=== PATIENT | female | born 1955 | race Caucasian/White ===

== ENCOUNTER 2020-03-15 09:48 | Emergency (ER) | payer MEDICARE, OTHER ==
[~2020-03-15] VITALS: Ht 157.5 cm; Wt 90.7 kg
--- OUTSIDE RECORDS SUMMARY | ~2020-03-15 | XMS | Encounter Summary ---
Demographics + + + | Address | [address] | | | [place] [address] | + + + | Home Phone | | + + + | Preferred Language | Unknown | + + + | Marital Status | | + + + | Evangelical Affiliation | Unknown | + + + | Race | Unknown | + + + | Ethnic Group | Unknown | + + + Author + + + | Author | [facility] | | | and Scout | + + + | Organization | [facility] | | | and [place] | + + + | Address | Unknown | + + + | Phone | Unavailable | + + + Support + + + + + | Name | Relationship | Address | Phone | + + + + + | Kendall MUNSON | [address] | | | | | [place] [address] | | + + + + + Care Team Providers + +------+ + | Care Community Service Specialist Name | Role | Phone | + +------+ + | Don Morin MD | PCP | | + +------+ + Reason for Visit + + + | Reason | Comments | + + + | Numbness | incontinent of bowel | + + + | Incontinence | | + + + Encounter Details +--------+ + + + + | Date | Type | Department | Care Team | Description | +--------+ + + + + | 10/15/ | Emergency | [facility] | [facility] | Incontinence of | | 2016 | | [facility] | Sherwin Schaeffer MD | bowel (Primary Dx); | | | | CENTER [address] | [address] | Numbness and | | | | [place], [place] | [place], [place] | tingling in left | | | | [address] | [address] | upper extremity; | | | | [phone] | | Numbness and | | | | | | tingling of right | | | | | | upper extremity | +--------+ + + + + Social History + +-------+ +--------+------+ | Tobacco Use | Types | Packs/Day | Years | Date | | | | | Used | | + +-------+ +--------+------+ | Former Smoker | | | | | + +-------+ +--------+------+ + +---+---+---+ | Smokeless Tobacco: | | | | | Never Used | | | | + +---+---+---+ + + +---------+ + | Alcohol Use | Drinks/Week | oz/Week | Comments | + + +---------+ + | Yes | | | occasional | + + +---------+ + + + + | Sex Assigned at | Date Recorded | | | | + + + | Not on file | | + + + documented as of this encounter Last Filed Vital Signs + +---------+ + + | Vital Sign | Reading | Time Taken | Comments | + +---------+ + + | Blood Pressure | 132/83 | 10/16/2015 7:39 PM | | | | | PST | | + +---------+ + + | Pulse | 72 | 10/16/2015 7:38 PM | | | | | PST | | + +---------+ + + | Temperature | - | - | | + +---------+ + + | Respiratory Rate | 16 | 10/16/2015 4:52 PM | | | | | PST | | + +---------+ + + | Oxygen Saturation | 97% | 10/16/2015 7:38 PM | | | | | PST | | + +---------+ + + | Inhaled Oxygen | - | - | | | Concentration | | | | + +---------+ + + | Weight | - | - | | + +---------+ + + | Height | - | - | | + +---------+ + + | Body Mass Index | - | - | | + +---------+ + + documented in this encounter Discharge Instructions Shaniqua Rose RN - 10/16/2015Please follow-up with Dr. Mendes's office tomorrow. Return for severe worsening symptoms. documented in this encounter Medications at Time of Discharge + + + +---------+ + + | Medication | Sig | Dispensed | Refills | Start | End Date | | | | | | Date | | + + + +---------+ + + | cyanocobalamin | Take 500 mcg by | | 0 | | | | (VITAMIN B-12) 500 | mouth Daily. | | | | 6 | | mcg tablet | | | | | | + + + +---------+ + + | escitalopram | Take 10 mg by mouth | | 0 | | | | (LEXAPRO) 10 mg | Daily. | | | | 7 | | tablet | | | | | | + + + +---------+ + + | gabapentin | Take 600 mg by mouth | | 0 | | | | (NEURONTIN) 300 mg | 3 times daily. | | | | 6 | | capsule | | | | | | + + + +---------+ + + | losartan (COZAAR) | Take 25 mg by mouth | | 0 | | | | 25 mg tablet | Daily. | | | | 7 | + + + +---------+ + + | methylprednisoLONE | Follow package | 21 | 0 | 10/16/19 | | | (MEDROL DOSEPAK) 4 | directions. | tablet | | 16 | 6 | | mg tablet | | | | | | + + + +---------+ + + | Multiple | Take 1 tablet by | | 0 | | | | Vitamins-Minerals | mouth Daily. | | | | 9 | | (WOMENS MULTIVITAMIN | | | | | | | PLUS PO) | | | | | | + + + +---------+ + + | simvastatin | Take 20 mg by mouth | | 0 | | | | (ZOCOR) 40 mg tablet | nightly. | | | | 9 | + + + +---------+ + + | varenicline | Take 1 mg by mouth 2 | | 0 | | | | (CHANTIX) 1 MG | times daily. | | | | 7 | | tablet | | | | | | + + + +---------+ + + documented as of this encounter ED Notes Dave Bradshaw MD - 10/16/2015 5:10 PM PSTFormatting of this note might be d ifferent from the original. [facility] [place] Wells Emergency Department Encounter Note [address] [place] [id number] PCP:Don Morin MD [phone] eMERGENCY dEPARTMENT eNCOUnter CHIEF COMPLAINT Chief Complaint Patient presents with Numbness incontinent of bowel Incontinence TRIAGE ED Triage Notes Gino Aviles RN 10/16/2015 16:52 Hx of back issues she is seeing Dr Benoit for neck issues and has had numbness in hands and 3 days ago started having loss of bowel and was told to come to the ED today for eval. HPI Ana Wells is a 60 y.o. female who presents with significant lower back pain that's be en intermittent for several days. She also has some issues in her neck and is waiting to se e the neurosurgeon. Currently patient over the last 2-3 days has had multiple episodes of loss of bowel contine nce. She called the neurosurgery office and they directed her to the emergency room for fur ther workup. Patient states that she has a very unsteady gait as it is due to lower back pain. Patient was having some numbness in all of her extremities and was found to have what appea red to be cervical impingement syndrome causing some of these symptoms. Patient recently had an MRI of the cervical spine there is a significant lesion at C4-C5. Patient state did state that she had been constipated for several days she took some stool softeners and then when they started to work that's when she developed the incontinence. Sh mayr states that normally she should be able to control the symptoms. She does have some ongoi ng intermittent numbness to her legs. Due to patient's incontinence issues I feel we need to rule out cauda equina syndrome. She states she has some difficulty starting a stream of urine. She feels like she has to go al l the time but sometimes cannot initiate a stream. She denies anesthesia to the genitals at this time. PAST MEDICAL HISTORY Past Medical History Diagnosis Date High cholesterol Hypertension Neuropathy SURGICAL HISTORY Past Surgical History Procedure Laterality Date Hysterectomy Tonsillectomy Cholecystectomy Carpal tunnel release Bilateral CURRENT MEDICATIONS Previous Medications CYANOCOBALAMIN (VITAMIN B-12) 500 MCG TABLET Take 500 mcg by mouth Daily. ESCITALOPRAM (LEXAPRO) 10 MG TABLET Take 10 mg by mouth Daily. GABAPENTIN (NEURONTIN) 300 MG CAPSULE Take 600 mg by mouth 3 times daily. LOSARTAN (COZAAR) 25 MG TABLET Take 25 mg by mouth Daily. MULTIPLE VITAMINS-MINERALS (WOMENS MULTIVITAMIN PLUS PO) Take 1 tablet by mouth Daily. SIMVASTATIN (ZOCOR) 40 MG TABLET Take 20 mg by mouth nightly. VARENICLINE (CHANTIX) 1 MG TABLET Take 1 mg by mouth 2 times daily. ALLERGIES No Known Allergies FAMILY HISTORY No family history on file. SOCIAL HISTORY History Social History Marital Status: Spouse Name: N/A Number of Children: N/A Years of Education: N/A Social History Main Topics Smoking status: Former Smoker Smokeless tobacco: Never Used Alcohol Use: Yes Comment: occasional Drug Use: No Sexual Activity: None Other Topics Concern None Social History Narrative None REVIEW OF SYSTEMS Please see HPI, All systems negative except as marked. Twelve point review of system comp leted my me. PHYSICAL EXAM VITAL SIGNS: Pulse: 99 Resp: 16 SpO2: 98 % BP: 154/88 mmHg Constitutional: Well developed, Well nourished, Non-toxic appearance. HENT: Normocephalic, Atraumatic, Bilateral external ears normal, Oropharynx moist, No oral exudates, Nose normal. Neck- Normal range of motion, No tenderness, Supple, No stridor. Eyes: PERRL, EOMI, Conjunctiva normal, No discharge. Respiratory: Normal breath sounds, No respiratory distress, No wheezing, No chest tenderne ss. Cardiovascular: Normal heart rate, Normal rhythm, No murmurs, No rubs, No gallops. GI: Bowel sounds normal, Soft, No tenderness, No masses, No pulsatile masses. Musculoskeletal: Intact distal pulses, No edema, No tenderness, No cyanosis, No clubbing. Good range of motion in all major joints. No tenderness to palpation or major deformities no oliver. Subjective numbness to the forearms as well as lateral. Back:- Reproducible lower back pain. Decreased range of motion. Neurologic: Alert & oriented x 3, Normal motor function, Normal sensory function, No focal deficits noted, no facial assymetry noted. 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 A final report is available at [facility]. MRI LUMBAR SPINE WITHOUT CONTRAST CLINICAL INFORMATION: Low back pain, numbness, and loss of bowel co ntinence. COMPARISON: None available PROCEDURE: Sagittal T2, axial T2, sagittal T1, axia l T1, sagittal STIR sequences. FINDINGS: Alignment: Normal. Vertebrae and vertebral joesph ow signal: No fractures or vertebral marrow edema. Conus and imaged portions of the caudal cord: Normal. Lumbar disc levels: T12-L1 and L1-L2 disc levels are normal. At L2-3 ther e is a small annular disc bulge and facet hypertrophy with mild central canal and moderate n eural foraminal stenosis. No evidence of nerve root compression. At L3-4 there is a small annular disc bulge and ligamentum flavum hypertrophy with mild central canal and moderate n eural foraminal stenosis. No evidence of nerve root compression. Mild facet arthropathy is present bilaterally. At L4-5 there is a small central disc protrusion and left paracentra l annular high-intensity zone mildly effacing the left lateral recess and contacting left tr aversing L5 nerve root. There is moderate central canal and bilateral neural foraminal sten osis. Moderate facet arthropathy is present bilaterally. At L5-S1 there is moderate disc degeneration with small right paracentral disc protrusion mildly effacing the right lateral recess and contacting the right traversing S1 nerve root. There is mild central canal steno sis. There is mild right and moderate left neural foraminal stenosis with left far lateral disc bulge and endplate osteophyte contacting the left exiting L5 nerve root. Moderate face t arthropathy is present bilaterally. Paraspinal musculature and paravertebral soft tissue s: No evidence of acute paraspinal soft tissue abnormality. Abdominal aortic diameter is wi thin normal limits. Large left renal cortical cyst is noted. IMPRESSION: 1. Normal alig nment of the lumbar spine without fractures, vertebral marrow edema, or evidence of acute hannah mbar vertebral abnormality. 2. L2-3 and L3-4 small annular disc bulges with mild central can al and moderate neural foraminal stenosis. No evidence of nerve root compression. 3. L4-5 s mall central disc protrusion and left paracentral annular high-intensity zone, mild effaceme nt of the left lateral recess with disc protrusion contacting the left traversing L5 nerve r oot, moderate central canal stenosis, and moderate neural foraminal stenosis. 4. Moderate L5 -S1 disc degeneration with small right paracentral disc protrusion mildly effacing the right lateral recess and contacting the right traversing S1 nerve root, mild central canal stenos is, mild right and moderate left neural foraminal stenosis, and left far lateral disc bulge and endplate osteophyte contacting the left exiting L5 nerve root. No evidence of nerve brandon t compression. Dictated by: Osmin Le Signed by: Osmin Le Report sent: 10/16/19 16 6:56:00 PM ED COURSE & MEDICAL DECISION MAKING Pertinent Labs & Imaging studies reviewed. (See chart for details) Nursing notes reviewed. Both MRIs of the cervical spine as well as lumbar spine have been reviewed with Dr. Vaughn guy. Her main problems appeared to be in the neck with a significant C4-C5 disc bul ge with spinal stenosis at that level. Patient has left para central spinal cord disc bulge with effacement of the spinal cord. Patient currently pain-free she is going to start on a Medrol Dosepak. Her incontinence is most likely not due to true cauda equina syndrome and is most likely due to her inability t o get up and walk due to neurogenic pain and numbness in her body. Patient is to be followe d up by Dr. Mendes tomorrow. She is to return for severe worsening symptoms. Follow-up Information Follow up with Don Morin MD. Specialties: Neurology, Psychiatry Contact information: [address] [facility] [address] Follow up with Jayme Blevins DO. Specialty: Neurosurgery Contact information: [facility] [address] New Prescriptions METHYLPREDNISOLONE (MEDROL DOSEPAK) 4 MG TABLET Follow package directions. FINAL IMPRESSION 1. Incontinence of bowel 2. Numbness and tingling in left upper extremity 3. Numbness and tingling of right upper extremity Portions of this chart may have been created with [employer] voice recognition software. Occasi onal wrong-word or sound-alike substitutions may have occurred due to the inherent hopkins itations of voice recognition software. Please read the chart carefully and recognize, using context, where these substitutions have occurred Dave Bradshaw MD 10/16/15 1936 documented in this encounter Miscellaneous Notes ED Triage Notes - Gino Aviles RN - 10/16/2015 4:51 PM PSTHx of back issues she is see ing Dr Benoit for neck issues and has had numbness in hands and 3 days ago started having loss of bowel and was told to come to the ED today for eval. documented in this encounter Plan of Treatment +--------+---------+ + + + | Date | Type | Specialty | Care Team | Description | +--------+---------+ + + + | 06/04/ | Office | Sleep Medicine | David Henriquez PA | | | 2020 | Visit | | [address] | | | | | | [place] | | | | | | [address] | | | | | | | | +--------+---------+ + + + documented as of this encounter Procedures + +--------+ + + + | Procedure Name | Priori | Date/Time | Associated Diagnosis | Comments | | | ty | | | | + +--------+ + + + | MRI LUMBAR SPINE WO | STAT | 10/16/2015 | | Results for this | | CONTRAST | | 6:18 PM | | procedure are in the | | | | PST | | results section. | + +--------+ + + + documented in this encounter Results MRI Lumbar Spine wo Contrast (10/16/2015 6:18 PM PST) + + | Specimen | + + | | + + + + + | Narrative | Performed At | + + + | MRI LUMBAR SPINE WO CONTRAST. 10/16/2015 6:10 PM HISTORY: | [facility] | | NUMBNESS loss of bowel continence. Low back pain. COMPARISON: | | | None available. TECHNIQUE: Axial T1, T2; sagittal T1, T2, and | | | STIR; coronal T2 MRI images of the lumbar spine were obtained without | | | IV contrast. FINDINGS: The lumbar spine shows anatomic | | | alignment. There is preservation of vertebral body heights. Bone | | | marrow signal is within normal limits for the patient's age. There is | | | diffuse degenerative disc disease. There is decreased disc | | | hydration signal at L4-5 and L5-S1. The conus medullaris terminates | | | normally at the level of L1-2 On sagittal images provided, the | | | discs, thecal sac, and neural foramina appear normal from the levels | | | of T11-12 through T12-L1. On axial imaging: L1-2: Facet | | | degenerative change with some ligamentum flavum thickening. Small | | | right facet joint effusion. No significant narrowing of the thecal | | | sac or neural foramina. L2-3: Bilobed disc bulge. Facet | | | degenerative hypertrophy and ligamentum flavum thickening. No | | | significant narrowing of the thecal sac. Congenitally short | | | pedicles. Moderate-severe bilateral neural foraminal narrowing. | | | L3-4: Bilobed posterior disc bulge. Facet degenerative | | | hypertrophy. Ligamentum flavum thickening and prominence of the | | | dorsal epidural sinus fat. Thecal sac measures 11 mm in midline AP | | | diameter. Congenitally short pedicles. Moderate-severe bilateral | | | neural foraminal narrowing. L4-5: Posterior disc bulge with | | | annular tear that contours the thecal sac. Facet degenerative | | | hypertrophy and ligamentum flavum thickening. Thecal sac narrowed | | | to 8mm in midline AP diameter x 13 mm in maximal transverse diameter. | | | There is effacement of bilateral lateral recesses, left greater than | | | right, with contacting of bilateral descending L5 nerve roots, with | | | possible compression of the descending left L5 nerve root. | | | Congenitally short pedicles. Moderate-severe bilateral neural | | | foraminal narrowing. There is contacting of the left exiting nerve | | | root, without without definite evidence of deflection. L5-S1: | | | Posterior disc bulge with annular tear with superimposed right | | | posterior paracentral disc protrusion that effaces the right lateral | | | recess and contacts the descending right S1 nerve root. Thecal sac | | | measures 9 mm in orthogonal AP diameter. Congenitally short | | | pedicles. Facet degenerative hypertrophy and ligamentum flavum | | | thickening. Severe left and moderate-severe right neural foraminal | | | narrowing. The disc bulge contacts the left exiting nerve root, with | | | possible deflection. Large simple-appearing cyst seen at the | | | medial aspect of the left kidney. Prominent appearance of right | | | renal pelvis. IMPRESSION - Multilevel degenerative disc | | | disease and spondylotic change with congenitally short pedicles, with | | | multilevel neural foraminal narrowing ranging up to severe in | | | degree, as detailed above. At L4-5, there is effacement of bilateral | | | recesses, left greater than right, with contacting of bilateral | | | descending L5 nerve roots, with possible compression of the | | | descending left L5 nerve root. Narrowing of the thecal sac at L4-5 | | | to 8mm in midline AP diameter. Narrowing of the thecal sac to 9 mm | | | in orthogonal AP diameter at L5-S1. Comment: Preliminary | | | results of this exam were provided by the after-hours radiology | | | service on completion of the study and sent: 10/16/2015 6:56:00 PM | | | Dictated and Signed by: Pancho Sosa MD Electronically signed: | | | 10/17/2015 8:57 AM | | + + + + + | Procedure Note | + + | Anthony, Rad Results In - 10/17/2015 9:00 AM PST MRI LUMBAR SPINE WO CONTRAST. 10/16/2015 | | 6:10 PMHISTORY: NUMBNESSloss of bowel continence. Low back pain.COMPARISON: None | | available.TECHNIQUE: Axial T1, T2; sagittal T1, T2, and STIR; coronal T2 MRI images of | | thelumbar spine were obtained without IV contrast.FINDINGS:The lumbar spine shows | | anatomic alignment.There is preservation of vertebral body heights.Bone marrow signal is | | within normal limits for the patient's age.There is diffuse degenerative disc disease. | | There is decreased disc hydrationsignal at L4-5 and L5-S1.The conus medullaris | | terminates normally at the level of L1-2On sagittal images provided, the discs, thecal | | sac, and neural foramina appearnormal from the levels of T11-12 through T12-L1.On axial | | imaging:L1-2: Facet degenerative change with some ligamentum flavum thickening. | | Smallright facet joint effusion. No significant narrowing of the thecal sac orneural | | foramina.L2-3: Bilobed disc bulge. Facet degenerative hypertrophy and ligamentum | | flavumthickening. No significant narrowing of the thecal sac. Congenitally | | shortpedicles. Moderate-severe bilateral neural foraminal narrowing.L3-4: Bilobed | | posterior disc bulge. Facet degenerative hypertrophy. Ligamentum flavum thickening and | | prominence of the dorsal epidural sinus fat. Thecal sac measures 11 mm in midline AP | | diameter. Congenitally short pedicles. Moderate-severe bilateral neural foraminal | | narrowing.L4-5: Posterior disc bulge with annular tear that contours the thecal sac. | | Facet degenerative hypertrophy and ligamentum flavum thickening. Thecal sacnarrowed to | | 8mm in midline AP diameter x 13 mm in maximal transverse diameter. There is effacement | | of bilateral lateral recesses, left greater than right, withcontacting of bilateral | | descending L5 nerve roots, with possible compression ofthe descending left L5 nerve | | root. Congenitally short pedicles. Moderate-severe bilateral neural foraminal | | narrowing. There is contacting ofthe left exiting nerve root, without without definite | | evidence of deflection.L5-S1: Posterior disc bulge with annular tear with superimposed | | right posteriorparacentral disc protrusion that effaces the right lateral recess and | | contactsthe descending right S1 nerve root. Thecal sac measures 9 mm in orthogonal | | APdiameter. Congenitally short pedicles. Facet degenerative hypertrophy andligamentum | | flavum thickening. Severe left and moderate-severe right neuralforaminal narrowing. | | The disc bulge contacts the left exiting nerve root, withpossible deflection.Large | | simple-appearing cyst seen at the medial aspect of the left kidney. Prominent appearance | | of right renal pelvis.IMPRESSION -Multilevel degenerative disc disease and spondylotic | | change with congenitallyshort pedicles, with multilevel neural foraminal narrowing | | ranging up to severein degree, as detailed above.At L4-5, there is effacement of | | bilateral recesses, left greater than right,with contacting of bilateral descending L5 | | nerve roots, with possiblecompression of the descending left L5 nerve root.Narrowing of | | the thecal sac at L4-5 to 8mm in midline AP diameter. Narrowing ofthe thecal sac to 9 | | mm in orthogonal AP diameter at L5-S1.Comment: Preliminary results of this exam were | | provided by the after-hoursradiology service on completion of the study and sent: | | 10/16/2015 6:56:00 PMDictated and Signed by: Pancho Sosa MD Electronically signed: | | 10/17/2015 8:57 AM | |Moderate-severe bilateral neural foraminal narrowing. There is contacting of | |the left exiting nerve root, without without definite evidence of deflection. | | | |L5-S1: Posterior disc bulge with annular tear with superimposed right posterior | |paracentral disc protrusion that effaces the right lateral recess and contacts | |the descending right S1 nerve root. Thecal sac measures 9 mm in orthogonal AP | |diameter. Congenitally short pedicles. Facet degenerative hypertrophy and | |ligamentum flavum thickening. Severe left and moderate-severe right neural | |foraminal narrowing. The disc bulge contacts the left exiting nerve root, with | |possible deflection. | | | |Large simple-appearing cyst seen at the medial aspect of the left kidney. | |Prominent appearance of right renal pelvis. | | | | | |IMPRESSION - | |Multilevel degenerative disc disease and spondylotic change with congenitally | |short pedicles, with multilevel neural foraminal narrowing ranging up to severe | |in degree, as detailed above. | |At L4-5, there is effacement of bilateral recesses, left greater than right, | |with contacting of bilateral descending L5 nerve roots, with possible | |compression of the descending left L5 nerve root. | | | |Narrowing of the thecal sac at L4-5 to 8mm in midline AP diameter. Narrowing of | |the thecal sac to 9 mm in orthogonal AP diameter at L5-S1. | | | | | | | | | |Comment: Preliminary results of this exam were provided by the after-hours | |radiology service on completion of the study and sent: 10/16/2015 6:56:00 PM | | | |Dictated and Signed by: Pancho Sosa MD | | Electronically signed: 10/17/2015 8:57 AM | + + + +---------+ + + | Performing | Address | City/State/Zipcode | Phone Number | | Organization | | | | + +---------+ + + | [facility] | | | | + +---------+ + + documented in this encounter Visit Diagnoses + + | Diagnosis | + + | Incontinence of bowel - Primary Full incontinence of feces | + + | Numbness and tingling in left upper extremity | + + | Numbness and tingling of right upper extremity | + + documented in this encounter Administered Medications + +--------+ +-------+------+------+ | Medication Order | MAR | Action | Dose | Rate | Site | | | Action | Date | | | | + +--------+ +-------+------+------+ | predniSONE (DELTASONE) tablet | Given | 10/16/19 | 60 mg | | | | 60 mg 60 mg, Oral, ONCE, Tue | | 16 7:42 | | | | | 10/16/15 at 1945, For 1 dose | | PM PST | | | | + +--------+ +-------+------+------+ +---+---+ | | | +---+---+ documented in this encounter"
--- OUTSIDE RECORDS SUMMARY | ~2020-03-15 | XMS | Encounter Summary ---
Demographics + + + | Address | [address] | | | [place] [address] | + + + | Home Phone | | + + + | Preferred Language | Unknown | + + + | Marital Status | | + + + | Christianity Affiliation | Unknown | + + + | Race | Unknown | + + + | Ethnic Group | Unknown | + + + Author + + + | Author | [facility] | | | and Scout | + + + | Organization | [facility] | | | and [place] | + + + | Address | Unknown | + + + | Phone | Unavailable | + + + Support + + + + + | Name | Relationship | Address | Phone | + + + + + | Kendall MUNSON | [address] | | | | | [place] [address] | | + + + + + Care Team Providers + +------+ + | Care Forder Operator Name | Role | Phone | + +------+ + | Rex Umanzor MD | PCP | | + +------+ + Reason for Visit + + + | Reason | Comments | + + + | CPAP Follow Up | | + + + Encounter Details +--------+---------+ + + + | Date | Type | Department | Care Team | Description | +--------+---------+ + + + | 01/21/ | Office | [facility] | David Henriquez PA | PRISCILLA on CPAP (Primary | | 2017 | Visit | SLEEP DISORDER [address] | [address] | Dx) | | | | [address] [place] | [place] | | | | | [place] [address] | [address] | | | | | [phone] | | | +--------+---------+ + + + Social History + + + +--------+ + | Tobacco Use | Types | Packs/Day | Years | Date | | | | | Used | | + + + +--------+ + | Current Every Day | Cigarettes | 0.05 | 42 | Quit: 10/10/2015 | | Smoker | | | | | + + + +--------+ + + +---+---+---+ | Smokeless Tobacco: | | | | | Never Used | | | | + +---+---+---+ + + +---------+ + | Alcohol Use | Drinks/Week | oz/Week | Comments | + + +---------+ + | Yes | 1 Cans of beer | 1.0 | | + + +---------+ + + + + | Sex Assigned at | Date Recorded | | | | + + + | Not on file | | + + + documented as of this encounter Last Filed Vital Signs + + + + + | Vital Sign | Reading | Time Taken | Comments | + + + + + | Blood Pressure | 120/74 | 01/21/2017 1:08 PM | | | | | PDT | | + + + + + | Pulse | 72 | 01/21/2017 1:08 PM | | | | | PDT | | + + + + + | Temperature | - | - | | + + + + + | Respiratory Rate | 16 | 01/21/2017 1:08 PM | | | | | PDT | | + + + + + | Oxygen Saturation | 95% | 01/21/2017 1:08 PM | | | | | PDT | | + + + + + | Inhaled Oxygen | - | - | | | Concentration | | | | + + + + + | Weight | 79.9 kg (176 lb 1.6 | 01/21/2017 1:08 PM | | | | oz) | PDT | | + + + + + | Height | - | - | | + + + + + | Body Mass Index | 32.21 | 11/27/2016 2:05 PM | | | | | PDT | | + + + + + documented in this encounter Functional Status + + + + | Functional Status | Response | Date of Assessment | + + + + | Are you deaf or do you have serious | No | 10/24/2015 | | difficulty hearing? | | | + + + + | Are you blind or do you have serious | No | 10/24/2015 | | difficulty seeing, even when wearing | | | | glasses? | | | + + + + | Do you have serious difficulty walking or | No | 10/24/2015 | | climbing stairs? (5 years old or older) | | | + + + + | Do you have difficulty dressing or bathing? | No | 10/24/2015 | | (5 years old or older) | | | + + + + | Because of a physical, mental, or emotional | No | 10/24/2015 | | condition, do you have difficulty doing | | | | errands alone such as visiting a doctor's | | | | office or shopping? [15 years old or | | | | older)] | | | + + + + + + + + | Cognitive Status | Response | Date of Assessment | + + + + | Because of a physical, mental, or emotional | No | 10/24/2015 | | condition, do you have serious difficulty | | | | concentrating, remembering, or making | | | | decisions? (5 years old or older) | | | + + + + documented as of this encounter Progress Notes David Henriquez PA - 01/21/2017 1:00 PM PDT Subjective: Patient ID: Ana Wells is a 61 y.o. female. HPI last office visit: 12/16/2016 date of HSAT: 11/04/2016 AHI: 68.8 RDI: O2%: 84% with 91.1 minutes below 90% Machine type: ResMed AirSense 10 Mask type: full face mask DME: [facility] [place] pressure: 4-20 cm Median: 10.0 cm 95%: 11.8 cm maximum: 13.3 cm Nights using CPAP: 34/36 % of nights >4 hours: 86% average usage (all nights): 6:30 average usage (nights used): 6: AHI: 1.3 Ana comes in for CPAP compliance. She continues to do well with her CPAP, wearing it nigh tly for the duration of her sleep. She feels that she is sleeping better and has felt more rested. She has been surprised with how quickly she has adjusted to her CPAP. Her CPAP has become a regular part of her sleep routine. She does not consider sleeping without it. Sh mary does not have any questions or concerns. I have discussed the download in detail. This shows that her sleep apnea is controlled, wi th an AHI of 1.3. It also shows that her leaks are controlled. It shows that she is wearin g her CPAP >4 hours for 93% of the nights during 30 consecutive nights. BP 120/74 | Pulse 72 | Resp 16 | Wt 79.9 kg (176 lb 1.6 oz) | SpO2 95% | BMI 32.21 kg/ m Review of Systems Objective: Physical Exam Assessment: Problem #1: OBSTRUCTIVE SLEEP APNEA ([id number]) This is well controlled with CPAP. She is doing well with her CPAP compliance. She has us ed her CPAP >4 hours for 93% of the nights for 30 consecutive nights. Plan: 1. She is to continue with CPAP indefinitely. I will follow up again in 2 months, sooner prn. At that time we will reassess with all lam ropriate paperwork. Fifteen minutes were spent [id number], with the majority of time spen t in counseling. David Henriquez PA-C cc: Rex Umanzor MD documented in this enco unter Plan of Treatment +--------+---------+ + + + | Date | Type | Specialty | Care Team | Description | +--------+---------+ + + + | 06/04/ | Office | Sleep Medicine | David Henriquez PA | | | 2019 | Visit | | [address] | | | | | | [place] | | | | | | [id number] | | | | | | | | +--------+---------+ + + + documented as of this encounter Visit Diagnoses + + | Diagnosis | + + | PRISCILLA on CPAP - Primary Obstructive sleep apnea (adult) (pediatric) | + + documented in this encounter"
--- OUTSIDE RECORDS SUMMARY | ~2020-03-15 | XMS | Encounter Summary ---
Demographics + + + | Address | [address] | | | [place] [address] | + + + | Home Phone | | + + + | Preferred Language | Unknown | + + + | Marital Status | | + + + | Buddhism Affiliation | Unknown | + + + | Race | Unknown | + + + | Ethnic Group | Unknown | + + + Author + + + | Author | [facility] | | | and Scout | + + + | Organization | [facility] | | | and [place] | + + + | Address | Unknown | + + + | Phone | Unavailable | + + + Support + + + + + | Name | Relationship | Address | Phone | + + + + + | Kendall MUNSON | [address] | | | | | [place] [address] | | + + + + + Care Team Providers + +------+ + | Care Lead Project Manager Name | Role | Phone | + +------+ + | Don Morin MD | PCP | | + +------+ + Reason for Visit Auth/Cert +--------+--------+ + + + + | Status | Reason | Specialty | Diagnoses / | Referred By | Referred To | | | | | Procedures | Contact | Contact | +--------+--------+ + + + + | | | | Diagnoses | | | | | | | Disease of | | | | | | | spinal cord | | | | | | | ([facility]) | | | | | | | Procedures | | | | | | | ID | | | | | | | ARTHRODESIS | | | | | | | ANT | | | | | | | INTERBODY | | | | | | | INC | | | | | | | DISCECTOMY, | | | | | | | CERVICAL | | | | | | | BELOW C2 | | | | | | | FUSION | | | | | | | CERVICAL | | | | | | | ANTERIOR W/ | | | | | | | PLATING | | | +--------+--------+ + + + + Encounter Details +--------+ + + + + | Date | Type | Department | Care Team | Description | +--------+ + + + + | 10/22/ | Hospital | [facility] | Jayme Blevins, | | | 2016 | Encounter | MED CTR XRAY [address] | DO [address] | | | | | [place] | [address] [place], [place] | | | | | [place] [address] | [id number] | | | | | [phone] | | | +--------+ + + + + Social History + + + +--------+ + | Tobacco Use | Types | Packs/Day | Years | Date | | | | | Used | | + + + +--------+ + | Former Smoker | Cigarettes | 1.5 | 40 | Quit: 10/10/2015 | + + + +--------+ + + [...] + + documented as of this encounter Medications at Time of Discharge [...] + + + +---------+ + + | diazepam (VALIUM) | Take 1 tablet by | 90 | 0 | 10/24/19 | | | 5 mg tablet | mouth every 6 hours | tablet | | 16 | 6 | | | as needed. | | | | | + + [...] + + + +---------+ + + | | Take 1-2 tablets by | 120 | 0 | 10/24/19 | | | HYDROcodone-acetamin | mouth every 4 hours | tablet | | 16 | 6 | | ophen (NORCO) 10-325 | as needed for Pain. | | | | | | mg per tablet | | | | | | + + + +---------+ + + | Lactulose SOLN | Take 30 mLs by mouth | 240 mL | 1 | 10/24/19 | | | | every 6 hours as | | | 16 | 6 | | | needed | | | | | | | (Constipation). | | | | | + + [...] + + documented as of this encounter Plan of Treatment +--------+---------+ + + + | Date | Type | Specialty | Care Team | Description | +--------+---------+ + + + | 06/04/ | Office | Sleep Medicine | David Henriquez PA | | | 2019 | Visit | | [address] | | | | | | [place] | | | | | | [id number] | | | | | | | | +--------+---------+ + + + documented as of this encounter Procedures + +--------+ + + + | Procedure Name | Priori | Date/Time | Associated Diagnosis | Comments | | | ty | | | | + +--------+ + + + | LAKESHA HARE STATS NO | Routin | 10/23/2015 | | Results for this | | CHARGE | e | 12:38 PM | | procedure are in the | | | | PDT | | results section. | + +--------+ + + + documented in this encounter Results [place] Baron Osorio No Charge (10/23/2015 12:38 PM PDT) + + | Specimen | + + | | + + + + + | Narrative | Performed At | + + + | No Radiologist interpretation, please see Chart Review. | [facility] | + + + + +---------+ + + | Performing | Address | City/State/Zipcode | Phone Number | | Organization | | | | + +---------+ + + | [facility] | | | | + +---------+ + + documented in this encounter Visit Diagnoses Not on filedocumented in this encounter"
--- OUTSIDE RECORDS SUMMARY | ~2020-03-15 | XMS | Encounter Summary ---
Demographics + + + | Address | [address] | | | [place] [address] | + + + | Home Phone | | + + + | Preferred Language | Unknown | + + + | Marital Status | | + + + | Church Affiliation | Unknown | + + + | Race | Unknown | + + + | Ethnic Group | Unknown | + + + Author + + + | Author | [facility] | | | and Scout | + + + | Organization | [facility] | | | and [place] | + + + | Address | Unknown | + + + | Phone | Unavailable | + + + Support + + + + + | Name | Relationship | Address | Phone | + + + + + | Kendall MUNSON | [address] | | | | | [place] [address] | | + + + + + Care Team Providers + +------+ + | Care Applied Technologist Name | Role | Phone | + +------+ + | Rex Umanzor MD | PCP | | + +------+ + Reason for Visit + + + | Reason | Comments | + + + | Follow-up | Discuss MRI | + + + Encounter Details +--------+---------+ + + + | Date | Type | Department | Care Team | Description | +--------+---------+ + + + | 04/29/ | Office | [facility] | Jayme Blevins, | Cervical myelopathy | | 2016 | Visit | NEUROSURGERY [address] | DO [address] | ([facility]IN [facility]) (Primary Dx); | | | | [address] | [address] [place], [place] | S/P cervical spinal | | | | [place], [place] | [address] | fusion | | | | [address] | | | | | | [phone] | | | +--------+---------+ + + + [...] + + + | Blood Pressure | 101/68 | 04/29/2016 12:46 PM | | | | | PDT | | + + + + + | Pulse | 76 | 04/29/2016 12:46 PM | | | | | PDT | | + + + + + | Temperature | - | - | | + + + + + | Respiratory Rate | 16 | 04/29/2016 12:46 PM | | | | | PDT | | + + + + + | Oxygen Saturation | - | - | | + + + + + | Inhaled Oxygen | - | - | | | Concentration | | | | + + + + + | Weight | 73.6 kg (162 lb 3.2 | 04/29/2016 12:46 PM | | | | oz) | PDT | | + + + + + | Height | 157.5 cm (5' 2") | 04/29/2016 12:46 PM | | | | | PDT | | + + + + + | Body Mass Index | 29.67 | 04/29/2016 12:46 PM | | | | | PDT [...] + + documented as of this encounter Patient Instructions Patient Instructions Jayme Blevins DO - 04/29/2016 1:11 PM PDTPlease undergo new x-rays of the cervical spine in 6 months. Please follow-up with me as needed. documented in this encounter Progress Notes Jayme Blevins DO - 04/29/2016 1:11 PM PDTFormatting of this note might be different fro m the original. Jayme Blevins DO [address] [facility], [address] [place], [place] [address] FAX: NEUROSURGERY FOLLOW-UP CHIEF COMPLAINT: Chief Complaint Patient presents with Follow-up Discuss MRI HISTORY OF PRESENT ILLNESS: The patient is a 60 y.o. female that had an ACDF C3-7 by me f or cervical myelopathy around 6 months ago. She returns and overall is doing fairly well. The patient complains of continued arm pain and walking difficulty due to right leg weakness . Issues with swallowing have not been a major issue. Most of the pre- and postsurgical co mplaints have continued to improve overall. She admits that the hand numbness is resolved, but is concerned with the ongoing arm pain and right leg weakness. She says neck pain is res olved. Since her last visit her symptoms are unchanged. She underwent MRI of the cervical spine an d presents to discuss the imaging. PAST MEDICAL HISTORY: Past Medical History Diagnosis Date High cholesterol Hypertension Neuropathy History of tobacco use PONV (postoperative nausea and vomiting) Wears dentures lower partial Sleep apnea no CPAP PAST SURGICAL HISTORY: Past Surgical History Procedure Laterality Date Hysterectomy Tonsillectomy Cholecystectomy Carpal tunnel release Bilateral Cyst excision anal Rectal fistula repaired Cervical spine surgery N/A 10/23/2015 Procedure: C3-4, C4-5, C5-6, C6-7 Anterior Cervical Discectomy w/ Fusion and Plating; Pinedo rgeon: Jayme Blevins DO; Location: [facility] MAIN OR CURRENT MEDICATIONS: Current Outpatient Prescriptions Medication Sig Dispense Refill escitalopram (LEXAPRO) 10 mg tablet Take 10 mg by mouth Daily. losartan (COZAAR) 25 mg tablet Take 25 mg by mouth Daily. Multiple Vitamins-Minerals (WOMENS MULTIVITAMIN PLUS PO) Take 1 tablet by mouth Daily. simvastatin (ZOCOR) 40 mg tablet Take 20 mg by mouth nightly. varenicline (CHANTIX) 1 MG tablet Take 1 mg by mouth 2 times daily. No current facility-administered medications for this visit. ALLERGIES: No Known Allergies SOCIAL HISTORY: The patient reports that she has been smoking Cigarettes. She has a 2 pack-year smoking h istory. She has never used smokeless tobacco. She reports that she drinks about 0.6 oz of al cohol per week. She reports that she does not use illicit drugs. FAMILY HISTORY: Family History Problem Relation Age of Onset Hypertension Other Heart attack Father Cancer Other Breast cancer Paternal Aunt INTERIM PHYSICAL EXAMINATION: Blood pressure 101/68, pulse 76, resp. rate 16, height 1.575 m (5' 2"), weight 73.573 kg (1 62 lb 3.2 oz), not currently . Body mass index is 29.66 kg/(m^2). GENERAL: Ana Wells is in no acute distress with unlabored respirations. HEENT: HEAD/FACE: Normocephalic and atraumatic. There are no areas of recent trauma. SPINE: The patient s incision has healed further and is again without drainage, erythema, or discharge EXTREMITIES: No lower extremity edema. NEUROLOGICAL EXAMINATION: MENTAL STATUS: The patient is awake, alert, and oriented. She follows simple and complex commands MOTOR EXAM: Motor strength is 4+/5 bilateral sensitized paper tester, 4-/5 bilateral legs except right DF whic h is 4/5. This is improved from the preoperative exam. SENSORY EXAM: The sensory examination improved from the preoperative exam. REFLEXES: Reflexes are unchanged from her preoperative history and physical. RADIOGRAPHIC REVIEW: MRI of the cervical spine from 03/19/16 demonstrates postoperative changes C3-7. There is in terval improvement of the alignment and stenosis C3-7 compared to the last MRI 10/11/15. There is still spinal cord signal change C4-5. ASSESSMENT: S/P ACDF C3-7: Encounter Diagnoses Name Primary? Cervical myelopathy Yes S/P cervical spinal fusion Past Medical History Diagnosis Date High cholesterol Hypertension Neuropathy History of tobacco use PONV (postoperative nausea and vomiting) Wears dentures lower partial Sleep apnea no CPAP PLAN: Overall, the patient is doing fairly well. The patient's preoperative symptoms are improv ing at this point. I am concerned about the ongoing difficulty walking. MRI demonstrates co ntinued myelomalacia C4-5. This is likely contributing to her spacticity and walking difficu lty. This can take months to years to heal and she may never experience full resolution of h er symptoms. This was dicussed with her today. She will continue physical therapy. She will undergo repeat x-ray of the neck in 6 months and follow-up with me as needed. ELECTRONICALLY SIGNED BY: Jayme Blevins DO, 04/29/2016 13:16 documented in this encounter Plan of Treatment +--------+---------+ + + + | Date | Type | Specialty | Care Team | Description | +--------+---------+ + + + | 06/04/ | Office | Sleep Medicine | David Henriquez PA | | | 2019 | Visit | | [address] | | | | | | [place] | | | | | | [address] | | | | | | | | +--------+---------+ + + + documented as of this encounter Visit Diagnoses + + | Diagnosis | + + | Cervical myelopathy (HCC) - Primary Cervical spondylosis with myelopathy | + + | S/P cervical spinal fusion Arthrodesis status | + + documented in this encounter
--- OUTSIDE RECORDS SUMMARY | ~2020-03-15 | XMS | Encounter Summary ---
Demographics + + + | Address | [address] | | | [place] [address] | + + + | Home Phone | | + + + | Preferred Language | Unknown | + + + | Marital Status | | + + + | Advent Affiliation | Unknown | + + + | Race | Unknown | + + + | Ethnic Group | Unknown | + + + Author + + + | Author | [facility] | | | and Scout | + + + | Organization | [facility] | | | and [place] | + + + | Address | Unknown | + + + | Phone | Unavailable | + + + Support + + + + + | Name | Relationship | Address | Phone | + + + + + | Kendall MUNSON | [address] | | | | | [place] [address] | | + + + + + Care Team Providers + +------+ + | Care Volunteer Specialist Name | Role | Phone | + +------+ + | Don Morin MD | PCP | | + +------+ + Encounter Details +--------+ + + + + | Date | Type | Department | Care Team | Description | +--------+ + + + + | 12/03/ | [facility] | [facility] | Jayme Blevins, | Status post cervical | | 2016 | Encounter | MED CTR XRAY [address] | DO [address] | spinal fusion; | | | | [place] | [address], [place] | Disease of spinal | | | | [place] [address] | [address] | cord (HCC) | | | | [phone] | | | +--------+ + + + + Social History + + + +--------+ + | Tobacco Use | Types | Packs/Day | Years | Date | | | | | Used | | + + + +--------+ + | Current Every Day | Cigarettes | 0.07 | 42 | Quit: 10/10/2015 | | Smoker | | | | | + + + +--------+ + + +---+---+---+ | Smokeless Tobacco: | | | | | Never Used | | | | + +---+---+---+ + + | 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 | + + + + +---------+ + | Alcohol Use [...] + + documented as of this encounter Functional Status + + + [...] tablets by | 120 | 0 | 12/04/19 | | | HYDROcodone-acetamin | mouth every [...] 2020 | Visit | | [address] | | | | | | [place] | | | | | | [address] | | | | | | | | +--------+---------+ + + + documented as of this encounter Procedures + +--------+ + + + | Procedure Name | Priori | Date/Time | Associated Diagnosis | Comments | | | ty | | | | + +--------+ + + + | XR CERVICAL SPINE 2 | Routin | 12/04/2015 | Status post | Results for this | | OR 3 VIEWS | e | 12:46 PM | cervical spinal | procedure are in the | | | | PDT | fusion Disease of | results section. | | | | | spinal cord (HCC) | | + +--------+ + + + documented in this encounter Results XR Cervical Spine 2 or 3 Views (12/04/2015 12:46 PM PDT) + + | Specimen | + + | | + + + + + | Narrative | Performed At | + + + | CERVICAL SPINE: 12/04/2015 12:46 PM CLINICAL HISTORY: S/P | [facility] | | cervical fusion COMPARISON: 10/23/2015 FINDINGS: Upright AP and | [facility] | | lateral views of the cervical spine. Anterior compression plate | [facility] | | and screws extending from C3 to C7. Interbody bone graft at each | - IMAGING | | level. Fixation components appear intact and in stable position. | | | Cervical alignment is normally maintained. No prevertebral swelling or | | | other soft tissue abnormality. Overlying cervical collar in place. | | | IMPRESSION - Stable C3-C7 ACDF changes. Dictated and Signed by: | | | Marcus Tee MD Electronically signed: 12/04/2015 3:22 PM | | + + + + + | Procedure Note | + + | Fredy Cruz Results In - 12/04/2015 3:26 PM PDT CERVICAL SPINE: 12/04/2015 12:46 PM | | | | CLINICAL HISTORY: S/P cervical fusion | | | | COMPARISON: 10/23/2015 | | | | FINDINGS: Upright AP and lateral views of the cervical spine. | | | | Anterior compression plate and screws extending from C3 to C7. Interbody bone | | graft at each level. Fixation components appear intact and in stable position. | | Cervical alignment is normally maintained. No prevertebral swelling or other | | soft tissue abnormality. Overlying cervical collar in place. | | | | IMPRESSION - Stable C3-C7 ACDF changes. | | | | Dictated and Signed by: Marcus Tee MD | | Electronically signed: 12/04/2015 3:22 PM | + + + + + + + | Performing | Address | City/State/Zipcode | Phone Number | | Organization | | | | + + + + + | [facility] | [address] | [place] | [phone] | | [facility] | | [address] | | | - IMAGING | | | | + + + + + documented in this encounter Visit Diagnoses + + | Diagnosis | + + | Status post cervical spinal fusion Arthrodesis status | + + | Disease of spinal cord (HCC) Unspecified disease of spinal cord | + + documented in this encounter"
--- OUTSIDE RECORDS SUMMARY | ~2020-03-15 | XMS | Encounter Summary ---
Demographics + + + | Address | [address] | | | [place] [address] | + + + | Home Phone | | + + + | Preferred Language | Unknown | + + + | Marital Status | | + + + | Uatsdin Affiliation | Unknown | + + + | Race | Unknown | + + + | Ethnic Group | Unknown | + + + Author + + + | Author | [facility] | | | and Scout | + + + | Organization | [facility] | | | and [place] | + + + | Address | Unknown | + + + | Phone | Unavailable | + + + Support + + + + + | Name | Relationship | Address | Phone | + + + + + | Kendall MUNSON | [address] | | | | | [place] [address] | | + + + + + Care Team Providers + +------+ + | Care Layer Out Name | Role | Phone | + +------+ + | Don Morin MD | PCP | | + +------+ + Encounter Details +--------+ + + + + | Date | Type | Department | Care Team | Description | +--------+ + + + + | 01/28/ | Orders Only | [facility] [place] | Jayme Blevins, | S/P cervical spinal | | 2016 | | NEUROSURGERY [address] | DO [address] | fusion (Primary Dx) | | | | [address] | [address] [place] | | | | | [place] | [address] | | | | | [address] | | | | | | [phone] | | | +--------+ + + + [...] 2019 | Visit | | [address] | | | | | | [place] | | | | | | [address] | | | | | | | | +--------+---------+ + + + documented as of this encounter Results XR Cervical Spine 2 or 3 Views (01/29/2016 2:42 PM PDT) + + | Specimen | + + | | + + + + + | Narrative | Performed At | + + + | XR CERVICAL SPINE 2 OR 3 VIEWS 01/29/2016 2:42 PM HISTORY: S/P | [facility] | | cervical fusion. COMPARISON: Multiple priors. FINDINGS: | [facility] | | Visualized skull base and facial structures demonstrate no acute [facility] | | findings. Prevertebral soft tissues are normal. Again seen are | - IMAGING | | hardware for anterior fusion from C3 through C7 with interbody graft | | | material at these levels. The hardware remain intact. There are | | | moderate degenerative changes of the anterior atlantoaxial joint. | | | Mild retrolisthesis is observed of C3 over C4 that is stable. Bone | | | mineralization is normal. The dens is normal. Vertebral body height | | | are preserved with no evidence for compression fractures. Disc height | | | are maintained. Facet joints are intact. There is mild | | | atherosclerosis of the bilateral neck. Visualized upper chest | | | demonstrates no acute findings. IMPRESSION - Stable anterior | | | fusion from C3 through C7. Dictated and Signed by: Олег Jacobo | | | Electronically signed: 01/29/2016 5:45 PM | | + + + + + | Procedure Note | + + | Anthony, Rad Results In - 01/29/2016 5:48 PM PDT XR CERVICAL SPINE 2 OR 3 VIEWS | | 01/29/2016 2:42 PMHISTORY: S/P cervical fusion.COMPARISON: Multiple | | priors.FINDINGS:Visualized skull base and facial structures demonstrate no acute | | findings.Prevertebral soft tissues are normal.Again seen are hardware for anterior | | fusion from C3 through C7 with interbodygraft material at these levels. The hardware | | remain intact. There are moderatedegenerative changes of the anterior atlantoaxial | | joint. Mild retrolisthesis isobserved of C3 over C4 that is stable. Bone mineralization | | is normal. The densis normal. Vertebral body height are preserved with no evidence for | | compressionfractures. Disc height are maintained. Facet joints are intact. There is | | mildatherosclerosis of the bilateral neck. Visualized upper chest demonstrates noacute | | findings. IMPRESSION -Stable anterior fusion from C3 through C7.Dictated and Signed by: | | Олег Jacobo MD Electronically signed: 01/29/2016 5:45 PM | |degenerative changes of the anterior atlantoaxial joint. Mild retrolisthesis is | |observed of C3 over C4 that is stable. Bone mineralization is normal. The dens | |is normal. Vertebral body height are preserved with no evidence for compression | |fractures. Disc height are maintained. Facet joints are intact. There is mild | |atherosclerosis of the bilateral neck. Visualized upper chest demonstrates no | |acute findings. | | | |IMPRESSION - | |Stable anterior fusion from C3 through C7. | | | |Dictated and Signed by: Олег Jacobo MD | | Electronically signed: 01/29/2016 5:45 PM | + + + + + + + | Performing | Address | City/State/Zipcode | Phone Number | | Organization | | | | + + + + + | [facility] | [address] | [place], [place] | [phone] | | [facility] | | [address] | | | - IMAGING | | | | + + + + + documented in this encounter Visit Diagnoses + + | Diagnosis | + + | S/P cervical spinal fusion - Primary Arthrodesis status | + + documented in this encounter"
--- OUTSIDE RECORDS SUMMARY | ~2020-03-15 | XMS | Encounter Summary ---
Demographics + + + | Address | [address] | | | [place] [address] | + + + | Home Phone | | + + + | Preferred Language | Unknown | + + + | Marital Status | | + + + | Spiritism Affiliation | Unknown | + + + | Race | Unknown | + + + | Ethnic Group | Unknown | + + + Author + + + | Author | [facility] | | | and Scout | + + + | Organization | [facility] | | | and [place] | + + + | Address | Unknown | + + + | Phone | Unavailable | + + + Support + + + + + | Name | Relationship | Address | Phone | + + + + + | Kendall MUNSON | [address] | | | | | [place] [address] | | + + + + + Care Team Providers + +------+ + | Care Retail Sales Clerk Name | Role | Phone | + +------+ + | Don Morin MD | PCP | | + +------+ + Reason for Visit +--------+--------+ + | Reason | Onset | Comments | | | Date | | +--------+--------+ + | Other | 10/15/ | | | | 2015 | | +--------+--------+ + Encounter Details +--------+ + + + + | Date | Type | Department | Care Team | Description | +--------+ + + + + | 10/15/ | Telephone | [facility] [place] | Oscar Benoit MD | Other | | 2016 | | NEUROSUR[address]ERY [address] | [address] | | | | | [address] | [place] [address] | | | | | [place] | [phone] | | | | | [address] | | | | | | [phone] | | | +--------+ + + + [...] + + documented as of this encounter Miscellaneous Notes Telephone Encounter - Jun Yi PA - 10/16/2015 1:57 PM PSTThe patient clearly needs to have further investigation and evaluation. Emergency room visit is recommended at this time elepho ne Encounter - Rosie Bowen RN - 10/16/2015 1:30 PM PSTLois called today c/o loss of h er bowels for the last two days. She stated that she called her PCP and they advised her to call our office. She has not been seen in the office at this time. After speaking with Wagner PERRY she was advised to go to the ER, she verbalized understanding. Electronically sig pineda by Rosie Bowen RN at 10/16/2015 1:33 PM PSTdocumented in this encounter Plan of Treatment +--------+---------+ [...] documented as of this encounter Visit Diagnoses Not on filedocumented in this encounter"
--- OUTSIDE RECORDS SUMMARY | ~2020-03-15 | XMS | Encounter Summary ---
Demographics + + + | Address | [address] | | | [place] [address] | + + + | Home Phone | | + + + | Preferred Language | Unknown | + + + | Marital Status | | + + + | Samaritan Affiliation | Unknown | + + + | Race | Unknown | + + + | Ethnic Group | Unknown | + + + Author + + + | Author | [facility] | | | and Scout | + + + | Organization | [facility] | | | and [place] | + + + | Address | Unknown | + + + | Phone | Unavailable | + + + Support + + + + + | Name | Relationship | Address | Phone | + + + + + | Kendall MUNSON | [address] | | | | | [place] [address] | | + + + + + Care Team Providers + +------+ + | Care Orthopedics Nurse Name | Role | Phone | + +------+ + | Don Morin MD | PCP | | + +------+ + Reason for Visit + +--------+ + | Reason | Onset | Comments | | | Date | | + +--------+ + | Surgery Appointment | 10/18/ | Reminder | | | 2015 | | + +--------+ + Encounter Details +--------+ + + + + | Date | Type | Department | Care Team | Description | +--------+ + + + + | 10/18/ | Telephone | [facility] [place] | Jayme Blevins, | Surgery Appointment | | 2015 | | NEUR[address]UR[address] | DO [address] | (Reminder ) | | | | [address] | [address] [place], [place] | | | | | [place], [place] | [phone] | | | | | [address] | | | | | | [phone] | | | +--------+ + + + [...] this encounter Miscellaneous Notes Telephone Encounter - Soraya Duncan Cert MA - 10/19/2015 11:28 AM PSTAll presurgical check -in instructions given Surgery date: 10/23/15 Check-in Time: 09:15am No solids or liquids after midnight the night before surgery. Follow the cleansing instructions provided beginning the night before surgery after you sang wer or bathe. No showering the morning of surgery. Please do not wear jewelry, contact lenses, nail belizean (on fingers or toes), or make-up to surgery check-in. If you have dentures, hearing aids, or glasses please bring the cases with you to check-in. Medications instructions: Multiple Vitamins documented in this encounter Plan of Treatment [...]
--- OUTSIDE RECORDS SUMMARY | ~2020-03-15 | XMS | Encounter Summary ---
Demographics + + + | Address | [address] | | | [place] [address] | + + + | Home Phone | | + + + | Preferred Language | Unknown | + + + | Marital Status | | + + + | Gnosticist Affiliation | Unknown | + + + | Race | Unknown | + + + | Ethnic Group | Unknown | + + + Author + + + | Author | [facility] | | | and Scout | + + + | Organization | [facility] | | | and [place] | + + + | Address | Unknown | + + + | Phone | Unavailable | + + + Support + + + + + | Name | Relationship | Address | Phone | + + + + + | Kendall MUNSON | [address] | | | | | [place] [address] | | + + + + + Care Team Providers + +------+ + | Care Mottle Lay Up Operator Name | Role | Phone | + +------+ + | Don Morin MD | PCP | | + +------+ + Reason for Visit + +--------+ + | Reason | Onset | Comments | | | Date | | + +--------+ + | Medication Refill | 01/03/ | | | | 2015 | | + +--------+ + Encounter Details +--------+--------+ + + + | Date | Type | Department | Care Team | Description | +--------+--------+ + + + | 01/03/ | Refill | [facility] [place] | Jayme Blevins, | Medication Refill | | 2016 | | NEUR[address]UR[address] | DO [address] | | | | | [address] | [address] [place], [place] | | | | | [place], [place] | [id number] | | | | | [address] | | | | | | [phone] | | | +--------+--------+ + + + Social History + + [...] | + +---+---+---+ + + | 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 Original Rx jeni tavond. Called patient and notified her that her Rx was called into her pharmacy. Electronically si gned by Rosie Bowen RN at 01/08/2016 1:48 PM PDTTelephone Encounter - Jun Yi Ed, PA - 01/08/2016 1:00 PM PDTapprovedElectronically signed by ORLANDO White 01/08/2016 1:01 PM PDTTelephone Encounter - Rosie Bowen RN - 01/08/2016 10:57 AM PD TPatient called back. Please see medication refill below and approve/deny. Thank youElectron ically signed by Rosie Bowen RN at 01/08/2016 11:00 AM PDTTelephone Encounter - Rosie Bowen RN - 01/04/2016 12:28 PM PDTMedication Refill Request Procedure: C3-7 Fusion Date of Surgery: 10/23/15 Medication requested: Valium 5mg Do you have a pain contract with any providers: No Are you receiving pain medication prescriptions from any other providers: No Current intake: 1 tab PO nightly Date of last refill: 10/24/15 # of tabs left/or when will patient run out of this medication: #2 Where is pain located? Type of pain (constant, intermittent, sharp, dull)? : Neck pain meagan t radiates into her right shoulder when she bends her elbow, she describes as stabbing and a fam. Send in the mail or call in to preferred pharmacy? Called into her [facility]. Please approve/deny documented in this e ncounter Plan of Treatment +--------+---------+ + + + | Date | Type | Specialty | Care Team | Description | +--------+---------+ + + + | 06/04/ | Office | Sleep Medicine | David Henriquez PA | | | 2019 | Visit | | [address] | | | | | | [place] | | | | | | [phone] | | | | | | | | +--------+---------+ + + + documented as of this encounter Visit Diagnoses Not on filedocumented in this encounter"
--- OUTSIDE RECORDS SUMMARY | ~2020-03-15 | XMS | Encounter Summary ---
Demographics + + + | Address | [address] | | | [place] [address] | + + + | Home Phone | | + + + | Preferred Language | Unknown | + + + | Marital Status | | + + + | Alevism Affiliation | Unknown | + + + | Race | Unknown | + + + | Ethnic Group | Unknown | + + + Author + + + | Author | [facility] | | | and Scout | + + + | Organization | [facility] | | | and [place] | + + + | Address | Unknown | + + + | Phone | Unavailable | + + + Support + + + + + | Name | Relationship | Address | Phone | + + + + + | Kendall MUNSON | [address] | | | | | [place] [address] | | + + + + + Care Team Providers + +------+ + | [employer]ed [employer] Contact Printer Name | Role | Phone | + [...] | | | | | | | ([facility]) | | | | | | | Procedures | | | | | | | [place] | | | | | | | [...] + + | 10/22/ | Hospital | [facility] | Jayme Blevins, | | | 2016 - | Encounter | [facility] | DO [address] | | | | | [address] | [address] [place], [place] | | | 10/23/ | | [place] [address] | [id number] | | | 2015 | | [phone] | | | +--------+ + + + [...] + + + | Blood Pressure | 97/58 | 10/24/2015 7:42 AM | | | | | PDT | | + + + + + | Pulse | 72 | 10/24/2015 7:42 AM | | | | | PDT | | + + + + + | Temperature | 37 C (98.6 F) | 10/24/2015 7:42 AM | | | | | PDT | | + + + + + | Respiratory Rate | 16 | 10/24/2015 7:42 AM | | | | | PDT | | + + + + + | Oxygen Saturation | 94% | 10/24/2015 7:42 AM | | | | | PDT | | + + + + + | Inhaled Oxygen | - | - | | | Concentration | | | | + + + + + | Weight | 82.1 kg (181 lb) | 10/23/2015 9:15 AM | | | | | PDT | | + + + + + | Height | 157.5 cm (5' 2") | 10/23/2015 9:15 AM | | | | | PDT | | + + + + + | Body Mass Index | 33.1 | 10/23/2015 9:15 AM | | | | | PDT | [...] + + documented as of this encounter Discharge Summaries Alex Sandra PA - 10/24/2015 7:47 AM PDTFormatting of this note might be different f rom the original. DISCHARGE SUMMARY Pt. Name/Age/: Ana Wells 60 y.o. 1955 Date of Admission: 10/23/2015 Date of Discharge: 10/24/2015 Admitting Physician: Jayme Blevins DO PCP: Don Morin Discharging Physician: ORLANDO Rivera Primary Discharge Dx: Cervical myelopathy Secondary Discharge Dx: Patient Active Problem List Diagnosis High cholesterol Hypertension Neuropathy History of tobacco use Cervical myelopathy Cervical spinal stenosis Smoker - Daily (States quit October 2015) PONV (postoperative nausea and vomiting) Wears dentures Obstructive Sleep Apnea - No CPAP use Class I, BMI 30-34.9 Reason for Admission (Brief): The patient is a 60 y.o. female with the complaint of neck pa in symptoms that began 5 months ago. The patient describes fighting with her daughter and tw isting her neck. The symptoms have been rapidly worsening. She rates the pain as moderate. The symptoms are frequent, daily, continuous. She describes the pain as aching and stabbing. The patient describes arm symptoms down both sides. The arm symptoms account for at least g reater than or equal to 75% of her symptoms. Her pain travels from her neck into her arms - she has bilateral arm numbness. She also describes having to hold onto the dominguez and counter s as she walks. She does indicate a history of loss of fine motor function. Other findings o f progressive myelopathy are present. She has generalized weakness and spasticity. Hospital Course, including Complications: On the day of admission the patient was admitted to [facility] and underwent a C3-C7 . Patient was transferred to PACU and then to the neurosurgical floor. In brief, the hospi annita stay was uncomplicated, the patient mobilized well with physical therapy and occupationa l therapy. There were no cardiac issues, pulmonary issues, evidence of DVT or infection. Ap propriate discharge plans were made in line with her progress and mobility and she was ultim ately discharged to home. Medications Reconciled upon Discharge are: Discharge Medications New Medications Details diazepam 5 mg tablet Take 1 tablet by mouth every 6 hours as needed. aka: VALIUM HYDROcodone-acetaminophen 10-325 mg per tablet Take 1-2 tablets by mouth every 4 hours as needed for Pain. aka: NORCO Lactulose Soln Take 30 mLs by mouth every 6 hours as needed (Constipation). Unchanged Medications Details cyanocobalamin 500 mcg tablet Take 500 mcg by mouth Daily. aka: VITAMIN B-12 escitalopram 10 mg tablet Take 10 mg by mouth Daily. aka: LEXAPRO gabapentin 300 mg capsule Take 600 mg by mouth 3 times daily. aka: NEURONTIN losartan 25 mg tablet Take 25 mg by mouth Daily. aka: COZAAR simvastatin 40 mg tablet Take 20 mg by mouth nightly. aka: ZOCOR varenicline 1 MG tablet Take 1 mg by mouth 2 times daily. aka: CHANTIX WOMENS MULTIVITAMIN PLUS PO Take 1 tablet by mouth Daily. Discontinued Medications methylprednisoLONE 4 mg tablet aka: MEDROL DOSEPAK Condition on Discharge: Stable Disposition: Patient was discharged to home Follow-Up Plans: Follow-up with: Dr. Blevins's office in 4 weeks Follow-up with primary care physician as needed. Diet: Resume regular diet Activity: Continue to follow guidelines and precautions as previously discussed. Brace: C Electronically signed by: Alex Sandra, 10/24/2015 7:50 [facility] documented in this encounter Discharge Instructions Instructions Guido Giron RN - 10/24/2015Do not lift more than 5 pounds. Be mindful of "B" brace precautions and wear your brace when out of bed. Keep dressing clean and dry, replace bandaids if they become wet or soiled. Leave steri str ips in place. You may trim them if they start to roll up. Do not shower or get site wet for at least 3 days. documented in this encounter Medications at Time [...] documented as of this encounter Progress Notes Alex Sandra PA - 10/24/2015 7:39 AM PDTFormatting of this note might be different f rom the original. [facility] NEUROSURGERY PROGRESS NOTE Pt. Name/Age/: Ana Wells 60 y.o. 1955 Post operative day 1 SUBJECTIVE: Patient doing well. Pain is well controlled. Her snag grinder is much better now than i t was before surgery and she feels like her arms are waking up. She is not having significan t trouble swallowing. She would like to gohom today. OBJECTIVE: Patient Vitals for the past 24 hrs: BP Temp Temp src Pulse Resp SpO2 Height Weight 10/24/15 0300 119/63 mmHg 36.3 C (97.4 F) Oral 68 16 95 % - - 10/23/15 2300 133/74 mmHg 35.5 C (95.9 F) Oral 60 18 93 % - - 10/23/15 2000 111/64 mmHg 36.3 C (97.3 F) Oral 60 16 94 % - - 10/23/15 1800 144/81 mmHg - - 65 14 94 % - - 10/23/15 1700 111/64 mmHg - - 63 14 95 % - - 10/23/15 1600 117/66 mmHg - - 60 14 93 % - - 10/23/15 1510 105/67 mmHg - - 70 16 94 % - - 10/23/15 1437 102/53 mmHg 36.2 C (97.2 F) Axillary 61 16 94 % - - 10/23/15 1400 - - - 70 18 95 % - - 10/23/15 1355 113/69 mmHg - - 64 17 95 % - - 10/23/15 1350 - - - 68 11 95 % - - 10/23/15 1345 108/61 mmHg - - 59 11 95 % - - 10/23/15 1340 115/61 mmHg - - 71 19 95 % - - 10/23/15 1335 114/62 mmHg - - 63 15 94 % - - 10/23/15 1330 118/64 mmHg - - 61 11 96 % - - 10/23/15 1325 119/63 mmHg - - 57 9 95 % - - 10/23/15 1320 124/75 mmHg - - 59 10 95 % - - 10/23/15 1315 129/72 mmHg - - 60 14 95 % - - 10/23/15 1310 132/70 mmHg - - 63 19 95 % - - 10/23/15 1305 136/69 mmHg - - 65 16 95 % - - 10/23/15 1300 138/79 mmHg - - 65 17 95 % - - 10/23/15 1255 129/70 mmHg - - 69 14 95 % - - 10/23/15 1252 129/70 mmHg 36.2 C (97.2 F) - 68 12 93 % - - 10/23/15 0915 125/68 mmHg 36.6 C (97.9 F) Temporal 60 16 99 % 1.575 m (5' 2") 82.1 kg ( 181 lb) I/O last 24 Hours: In: 4320 [P.O.:2220; I.V.:1834; IV Piggyback:266] Out: 4410 [Urine:4300; Other:110] Min/Max Temp past 24 hours:Temp Av.2 C (97.2 F) Min: 35.5 C (95.9 F) Max: 3 6.6 C (97.9 F) General: Alert, oriented, no acute distress Dressing: Clean/Dry/Intact Neurological: normal DRAIN OUTPUT: 20 CCs from 1:00-7:00 Labs Recent Results (from the past 24 hour(s)) Type and Screen Result Value Ref Range ABO O Rh Type Positive Antibody Screen Negative ASSESSMENT:C3-C7 fusion Plan:Pull drain. DC home today. Electronically signed by: Alex Sandra, 10/24/2015 7:39 [facility] documented in this encounter H&P Notes Jayme Blevins DO - 10/23/2015 9:13 AM PDTSURGICAL INTERIM HISTORY & PHYSICAL UPDATE Pt. Name/Age/: Ana Wells 60 y.o. 1955 Date of admission: 10/23/2015 The current H&P was reviewed. The patient was reexamined. Re-evaluation of the patient co nfirms the necessity for the scheduled procedure. No change has occurred in the patient s condition since the H&P was completed less than 30 days ago. VERIFICATION OF CONSENT (PARQ) The patient was counseled regarding the procedure, its indications, risks, potential compli cations and alternatives. Any questions were answered. Consent was obtained. Electronically signed by: Jayme Blevins DO, 10/23/2015 9:13 [facility] HUDreyJayme dunlap DO - 10/23/2015 9:13 AM PDT Jayme Blevins, DO [address] [facility] [place], [place], [address] [place], [place] [address] FAX: NEUROSURGERY HISTORY AND PHYSICAL EXAMINATION CHIEF COMPLAINT: Chief Complaint Patient presents with Back Injury ED F/U HISTORY OF PRESENT ILLNESS: The patient is a 60 y.o. female with the complaint of neck pain symptoms that began 5 months ago. The patient describes fighting with her daughter and twis ting her neck. The symptoms have been rapidly worsening. She rates the pain as moderate. The symptoms are frequent, daily, continuous. She describes the pain as aching and stabbing. The patient describes arm symptoms down both sides. The arm symptoms account for at least g reater than or equal to 75% of her symptoms. Her pain travels from her neck into her arms - she has bilateral arm numbness. She also describes having to hold onto the dominguez and counter s as she walks. She does indicate a history of loss of fine motor function. Other findings o f progressive myelopathy are present. She has generalized weakness and spasticity. Her symptoms improve with nothing. Her symptoms worsen with changing position, bending, twisting and light exertion. She has tried lifestyle modification, pain medication, rest, physical therapy, neurology co nsultation. PAST MEDICAL HISTORY: Past Medical History Diagnosis Date High cholesterol Hypertension Neuropathy PAST SURGICAL HISTORY: Past Surgical History Procedure Laterality Date Hysterectomy Tonsillectomy Cholecystectomy Carpal tunnel release Bilateral CURRENT MEDICATIONS: Current Outpatient Prescriptions Medication Sig Dispense Refill cyanocobalamin (VITAMIN B-12) 500 mcg tablet Take 500 mcg by mouth Daily. escitalopram (LEXAPRO) 10 mg tablet Take 10 mg by mouth Daily. gabapentin (NEURONTIN) 300 mg capsule Take 600 mg by mouth 3 times daily. losartan (COZAAR) 25 mg tablet Take 25 mg by mouth Daily. methylprednisoLONE (MEDROL DOSEPAK) 4 mg tablet Follow package directions. 21 tablet 0 Multiple Vitamins-Minerals (WOMENS MULTIVITAMIN PLUS PO) Take 1 tablet by mouth Daily . simvastatin (ZOCOR) 40 mg tablet Take 20 mg by mouth nightly. varenicline (CHANTIX) 1 MG tablet Take 1 mg by mouth 2 times daily. No current facility-administered medications for this visit. ALLERGIES: No Known Allergies SOCIAL HISTORY: The patient reports that she quit smoking 7 days ago. She has never used smokeless tobacco . She reports that she drinks alcohol. She reports that she does not use illicit drugs. FAMILY HISTORY: Family History Problem Relation Age of Onset Hypertension Other Heart attack Father Cancer Other Breast cancer Paternal Aunt REVIEW OF SYSTEMS GENERALLY: No fever, no night sweats, no anemia, no fatigue, + recent profound weight fischer es. EYES: + eye problems, no use of corrective lenses, no eye injury, no double vision, no blin dness. EARS, NOSE, AND THROAT: No changes in taste or smell, no hearing difficulty, no ringing in the ears, no ear drainage, no dizziness, no voice changes, no difficulty swallowing, no sign ificant snoring, no sleep apnea, no sinus problems, + major dental work. NEUROLOGICALLY: Please see the review of systems discussed above in the history of present illness. In addition, the patient has numbness/pain of arms, awake with numbness/pain, fischer e in walk, tremor/shaking, headaches. PSYCHIATRIC: No depression, + sleep disorders, no anxiety, no bipolar disorder, no psychoti c episodes. CARDIOVASCULAR: No heart attacks, no heart murmur, no heart fluttering, no chest pain, no a nkle swelling. LUNG DISEASE: No shortness of breath, no cough, no tuberculosis, no bloody cough, no asthma , no emphysema/COPD. GASTROINTESTINAL: No bowel disease, no nausea or vomiting, no rectal bleeding,+ constipatio n, no stool incontinence, no liver disease, no gallbladder disease, no abdominal pain, no ul cers. KIDNEY DISEASE: No urinary frequency, no painful or difficult urination, no incontinence. ENDOCRINE: No diabetes, no thyroid disease, no osteopenia or osteoporosis, no breast draina ge. SKIN: No breast lumps, no skin changes, no rashes, no itches. HEMATOLOGIC/LYMPHATIC: No enlarged lymph nodes, no easy or unusual bleeding, no personal hi story of cancer. RHEUMATOLOGIC: No joint arthritis, no rheumatoid arthritis. PHYSICAL EXAMINATION: Blood pressure 134/74, pulse 76, resp. rate 16, height 1.575 m (5' 2"), weight 83.915 kg (1 85 lb). Body mass index is 33.83 kg/(m^2). GENERAL: Ana Wells is in no acute distress with unlabored respirations. The patient does appear uncomfortable throughout the exam today. HEENT: HEAD/FACE: EYES: EARS: NASOPHARNYX: OROPHARNYX: Normocephalic and atraumatic. There are no areas of recent trauma. Normal sclerae without icterus. No drainage or tenderness. Clear without drainage. Clear without erythema. NECK (ANTERIOR): Supple and without palpable masses. CHEST: Clear to ausculation without crackles or wheeze. HEART: Regular rate and rhythm without murmurs. ABDOMEN: Soft, non-tender, non-distended, and without palpable masses. The patient is obe se. SPINE: The cervical spine exam shows there is tenderness over the C-3, C-4, C-5, C-6 and C -7 region. Range of motion is limited. Rotation and extension does cause symptoms to radiate into the extremities on both sides. Flexion and extension of the neck does cause severe dis comfort. No tenderness in the midline of the thoracic or lumbar spine. There is no major palpable de formity of the spine. EXTREMITIES: No cyanosis, clubbing, or edema. Distal pulses are palpable. NEUROLOGICAL EXAM: MENTAL STATUS: The patient is awake, alert, and oriented. She follows simple and complex commands. Her speech is fluent, she comprehends speech well, and she repeats well. She has no apparent deficits with short or skilled nursing memory. CRANIAL NERVES: II: Acuity is intact. Johnson are full to confrontation. III, IV, : The pupils are reactive. Extraocular movements are intact. No ptosis is noted . V: Facial sensation is intact and symmetric. VII: Facial movements are symmetric. VIII: Hearing is intact bilaterally. IX, X: The uvula and palate move appropriately. XI: Shrug is equal bilaterally. XII: Tongue protrusion is midline. MOTOR EXAM: (5 IS NORMAL) * Indicates pain limited MUSCLE/ MOVEMENT: RIGHT LEFT Deltoids 4 4- Biceps 4 4 Triceps 4 4 Wrist Flexion 4 4 Wrist Extension 4 4 Median Intrinsics 4- 4- Ulnar Intrinsics 4- 4- Curing Pickling Packer Strength 4- 4- Hip Flexion 4+ 4+ Hip Extension 4+ 4+ Knee Flexion 4+ 4+ Knee Extension 4+ 4+ Dorsiflexion 4+ 4+ Extensor Hallicus Longus 4+ 4+ Plantarflexion 4+ 4+ SENSORY EXAM: Sensory exam shows bilateral arm numbness from the shoulder to the hands circumferentially. REFLEXES: (2 OR 2+ IS NORMAL) REFLEX: RIGHT LEFT BICEPS 3+ 3+ BRACHIORADIALIS 3+ 3+ TRICEPS 3+ 3+ PATELLAR 3+ 3+ ACHILLES 4+ 4+ MCFARLANE'S PRESENT PRESENT PLANTAR UPGOING UPGOING GAIT: Gait is antalgic. PERIPHERAL NERVE/MISC: Tinel is negative at the wrists and elbows bilaterally. Phalen is negative. Straight leg raise is negative bilaterally. Zoran's test of the hips is negative bilaterally. RADIOGRAPHIC REVIEW: The patient's imaging was reviewed in detail with the patient today during the visit. The M RI of the cervical spine from 10/11/15 demonstrates loss of cervical lordosis with kyphosis. T here is stenosis C3-7 with deformation of the spinal cord at every level from C3-7, worse at C4-5 with spinal cord signal change. Cervical flexion and extension views show no dynamic instability. ASSESSMENT: NEUROSURGICAL DIAGNOSES: Encounter Diagnoses Name Primary? Cervical myelopathy Yes Kyphosis of cervical region, unspecified kyphosis type Cervical stenosis of spinal canal Cervical radicular pain Cervicalgia Gait instability GENERAL DIAGNOSES: Past Medical History Diagnosis Date High cholesterol Hypertension Neuropathy PLAN: Ana Wells presented today, and it was a pleasure seeing this patient and assessing he r problems. The patient has cervical kyphosis and severe stenosis causing deformation of the spinal cord and signal change C3-7. This is likely contributing to her neck pain, arm numbn ess, arm weakness, and gait instability. I had a lengthy discussion with the patient about her options for care including surgical a nd non-surgical options. She would like to proceed with urgent ACDF C3-7. Given the severity of her condition I will authorize this surgery urgently and plan to operate next week. We discussed the risks, alternatives, and benefits to surgical intervention with Ms. Eddi aranda in clinic. These risks included but were not limited to , stroke, heart attack, numb ness, weakness, paralysis, failure of fusion, failure of hardware, subsidence, adjacent segm ent degeneration, cerebrospinal fluid leak, bleeding, infection, injury to surrounding tissu es and organs, injury from positioning, injury to the nerves, difficulty with breathing, dif ficulty with swallowing, difficulty with voice change, and need for additional surgery. Surgical options were discussed and the technique to be employed was described in detail to her. All her questions were answered. We discussed that the goal of the surgery is to prevent progression of her disease, but it is not considered a cure. We also discussed that although some patients may obtain 100% symp alaina relief, it is realistic to anticipate that some symptoms will continue postoperatively d espite a successful surgery. We also discussed that there is no guarantee that surgery will provide improvement in her c ondition, and indeed may even worsen the symptoms. We also discussed that in the course of t he procedure the operative plan may be altered to include more, less, or different levels de pending upon findings in order to provide her with the best possible outcome. For multiple (more than 1 level fusions), I recommend the use of a bone growth stimulator p ostoperatively. This is to improve the probability and rate of fusion. documented in this en counter Miscellaneous Notes Plan of Care - Rachelle Kiran, OT - 10/24/2015 12:07 PM PDTFormatting of this note migh t be different from the original. Problem: Patient Care Overview (Adult) Goal: Care Team Goals & Evaluation PROBLEM-RELATED GOALS: 1. Pt will void within 6 hours of arriving to the floor post op. 2. Pt will tolerate solid food and PO pain med by POD 1. 3. Pt sensation will be intact and muscle strength of 5/5 by POD 2 4. Pt will achieve the pain score of 3/10 by POD 2 5. Pt will ambulate on day of surgery. 6. Pt will have a BM by POD 3. 7. Pt will be free of s/s of infections through POD 5. 8. Pt will tolerate dysphagia advanced textures with thin liquids with no overt s/s of airw ay compromise by 10/24/15. 9. Pt will be mod-I w/ in room activities by 10/25/15 STRATEGY TO ACHIEVE GOALS: Offer toileting, encourage ambulation to bathroom. If no void in 6 hours, then bladder scan pt and follow MD order. Start pt on liquids on arrival to the floor, increase diet as tolerate. Once taking juice o r solids, start pt on PO pain meds. Assess sensation and strength Q 4 hrs and prn. If decline noted, notify MD. Teach cervical precautions, cue prn, assist as needed. Encourage ambulation in halls and sitting in chair f or meals. Assess pain Q 4 hr and prn. Medicate prn, re-assess pain 30-60 minutes after med and re-med icate prn. Dangle pt on admit and encourage ambulation once pt is awake. Encourage ambulation to the b athroom. Give stool softener and laxative daily. If no BM by POD 2, use prn bowel meds until a BM is achieved. If discharged before POD 2, complete teaching to prevent constipation. Assess VS and temperature, dressing and lab work as directed. Notify MD w/ any concerns. Pt will be up in chair for all meals and follow swallow precautions. - Pt will fully participate in all therapy sessions - Pt will be out of bed and seated in bedside chair for all meals Occupational Therapy Acute Initial Evaluation Note Patient Information Patient Name: Ana Wells Date of : 1955 Age: 60 y.o. History No diagnosis found. Date of Onset: 10/23/15 Past Medical History Diagnosis Date High cholesterol Hypertension Neuropathy History of tobacco use PONV (postoperative nausea and vomiting) Wears dentures lower partial Sleep apnea no CPAP Past Surgical History Procedure Laterality Date Hysterectomy Tonsillectomy Cholecystectomy Carpal tunnel release Bilateral Cyst excision anal Rectal fistula repaired Cervical spine surgery N/A 10/23/2015 Procedure: C3-4, C4-5, C5-6, C6-7 Anterior Cervical Discectomy w/ Fusion and Plating; Surgeon: Jayme Blevins DO; Location: [facility] MAIN OR No Known Allergies Precautions/Limitations: spinal, falls, orthotic/bracing (B-Collar) Left Upper Extremity Weight-Bearing: (No overhead push, pull, lift) Right Upper Extremity Weight-Bearing: (No overhead push, pull, lift) Left Lower Extremity Weight-Bearing: full weight-bearing Right Lower Extremity Weight-Bearing: full weight-bearing Evaluation SUBJECTIVE: History of Presenting Problem: Ana Wells is a 60 y.o. who [facility] for Neck pain sx x 5 months ago. Sx rapidly worsening. BUE sx, bilateral arm numbness , decreased fine motor function. Holding counters/dominguez for balance. Patient is right handed. OT Diagnosis: Mildly impaired ADLs, decreased functional mobility Previous Level of Function: Ambulation: 0-->independent (furniture/wall walker) Transferrin-->independent Toiletin-->independent Bathin-->independent Dressin-->independent Eatin-->independent Communication: 0-->understands/communicates without difficulty Role/Relationships: Significant Relationships: spouse Living Environment/Accessibility: Lives With: spouse Living Arrangements: house Home Accessibility: grab bars present (bathtub), tub/shower is not walk in Number of Stairs to Enter Home: 3 Number of Stairs Within Home: 0 Patient s Goals: Go home today! OT Visit Summary: Pt seen for OT evaluation following multiple level cervical fusion. Was unable to attend Spine Class d/t urgency of surgery. Reviewed cervical precautions. Celeste fied some questions regarding gentle head/neck ROM, when to wear collar. Completed toilet t ransfer/toileting/U/LB dressing/grooming. See below. Ambulated w/ SBA w/ FWW. Note R foot drop. Pt has active dorsi/plantarflexion & when cued she was able to achieve good clearanc e and swing-through. Questions asked and answered. Seated up in chair @ bedside. No acute OT. Occupational Therapy will follow Ana Wells (1 x evaluation) [facility]. Occupational Therapy Anticipated Discharge Needs: Ongoing occupational therapy required. DC disposition TBD. Post discharge occupational therapy recommendation: Potential need for Outpatient therapy regarding balance issues, UE weakness. Equipment Recommendations: shower chair Identified Problems Needing Skilled Intervention: Mildly impaired ADLs, decreased functio nal mobility, ergonomics and body mechanics, motor function, gait, locomotion, and balance Planned Interventions:Planned Therapy Interventions: ADL retraining, transfer training, ort hotic fitting/training Patient Status/Goals Reflects last filed data of patient status; may be from multiple contributors. ADLs UB Dressing, Level of [place]: modified independence LB, Level of [place]: modified independence Toileting, Level of [place]: modified independence Grooming, Level of [place]: modified independence Transfers Toilet, Level of [place]: modified independence STG Goals OT Additional Goal #1: Pt mod I w/ ADLs & functional mobility. Goal Status: new, met Assessment: Occupational therapy orders received and acknowledged. Objective impairments i nclude mildly impaired ADLs, fxl mobility not requiring acute OT intervention. Prognosis: good, to achieve stated therapy goals Patient and/or family has indicated understanding of treatment needs and actively participa oliver in the creation of this plan for care. Today's Treatment Start Time: 1105 Stop time: 1130 Time Calculation: 25 minutes Missed Treatment Time: minutes Total Treatment Time: 25 minutes TimedTreatment Code Minutes: 15 minutes Objective: Pt seen for OT evaluation. Please see above for addt'l info on status & outcom e. Education: OT POC; safety; cervical precautions Treatment Provided: ADL training; functional mobility; safety awareness Assessment: OT evaluation completed. Functionally doing well. Pre-surgical sx resolving. Mod I w/ ADLs. Some mild balance deficits & should have supervision w/ ambulation. Respon ded well to cues for R foot clearance. No further acute OT. Plan for next treatment: No further OT, discharging home today Electronically signed by: Rachelle Kiran OT, 10/24/2015 11:59 lan of Care - Guido Reese RN - 10/24/2015 11:22 AM PDTProblem: Patient Care Overview (Adult) Goal: Care Team Goals & Evaluation PROBLEM-RELATED GOALS: 1. Pt will void within 6 hours of arriving to the floor post op. 2. Pt will tolerate solid food and PO pain med by POD 1. 3. Pt sensation will be intact and muscle strength of 5/5 by POD 2 4. Pt will achieve the pain score of 3/10 by POD 2 5. Pt will ambulate on day of surgery. 6. Pt will have a BM by POD 3. 7. Pt will be free of s/s of infections through POD 5. 8. Pt will tolerate dysphagia advanced textures with thin liquids with no overt s/s of airw ay compromise by 10/24/15. 9. Pt will be mod-I w/ in room activities by 10/25/15 STRATEGY TO ACHIEVE GOALS: Offer toileting, encourage ambulation to bathroom. If no void in 6 hours, then bladder scan pt and follow MD order. Start pt on liquids on arrival to the floor, increase diet as tolerate. Once taking juice o r solids, start pt on PO pain meds. Assess sensation and strength Q 4 hrs and prn. If decline noted, notify MD. Teach cervical precautions, cue prn, assist as needed. Encourage ambulation in halls and sitting in chair f or meals. Assess pain Q 4 hr and prn. Medicate prn, re-assess pain 30-60 minutes after med and re-med icate prn. Dangle pt on admit and encourage ambulation once pt is awake. Encourage ambulation to the b athroom. Give stool softener and laxative daily. If no BM by POD 2, use prn bowel meds until a BM is achieved. If discharged before POD 2, complete teaching to prevent constipation. Assess VS and temperature, dressing and lab work as directed. Notify MD w/ any concerns. Pt will be up in chair for all meals and follow swallow precautions. - Pt will fully participate in all therapy sessions - Pt will be out of bed and seated in bedside chair for all meals Outcome: Adequate for Discharge Date Met: 10/24/15 Goal Evaluation: Pt has met adequate goals to be discharged home with significant other. lan of Violet Durbin RN - 10/24/2015 10:44 AM PDTDischarge planning; Visited with Lois. Maria Isabel méndez today at noon. She lives with her spouse on the [facility]. Her spouse will stay h ome the rest of the week and her mom is available next week for assistance. Home is one leve l with two steps to inside. She owns a FWW and cane. No discharge needs anticipated. She rep orts her swallow is improved and she is drinking water without difficulty. Kiera Pope RN Ca se Management lan of Robyn - Cheryl Esteves PT - 10/24/2015 9:26 AM PDTProblem: Patient Care Overview (Adult) Goal: Care Team Goals & Evaluation PROBLEM-RELATED GOALS: 1. Pt will void within 6 hours of arriving to the floor post op. 2. Pt will tolerate solid food and PO pain med by POD 1. 3. Pt sensation will be intact and muscle strength of 5/5 by POD 2 4. Pt will achieve the pain score of 3/10 by POD 2 5. Pt will ambulate on day of surgery. 6. Pt will have a BM by POD 3. 7. Pt will be free of s/s of infections through POD 5. 8. Pt will tolerate dysphagia advanced textures with thin liquids with no overt s/s of airw ay compromise by 10/24/15. 9. Pt will be mod-I w/ in room activities by 10/25/15 STRATEGY TO ACHIEVE GOALS: Offer toileting, encourage ambulation to bathroom. If no void in 6 hours, then bladder scan pt and follow MD order. Start pt on liquids on arrival to the floor, increase diet as tolerate. Once taking juice o r solids, start pt on PO pain meds. Assess sensation and strength Q 4 hrs and prn. If decline noted, notify MD. Teach cervical precautions, cue prn, assist as needed. Encourage ambulation in halls and sitting in chair f or meals. Assess pain Q 4 hr and prn. Medicate prn, re-assess pain 30-60 minutes after med and re-med icate prn. Dangle pt on admit and encourage ambulation once pt is awake. Encourage ambulation to the b athroom. Give stool softener and laxative daily. If no BM by POD 2, use prn bowel meds until a BM is achieved. If discharged before POD 2, complete teaching to prevent constipation. Assess VS and temperature, dressing and lab work as directed. Notify MD w/ any concerns. Pt will be up in chair for all meals and follow swallow precautions. - Pt will fully participate in all therapy sessions - Pt will be out of bed and seated in bedside chair for all meals Physical Therapy Daily Treatment Note Patient Information Patient Name: Ana Wells Date of : 1955 Age: 60 y.o. Precautions/Limitations: spinal, falls (pt is B-collar classification ) Left Lower Extremity Weight-Bearing: full weight-bearing Right Lower Extremity Weight-Bearing: full weight-bearing History of Presenting Problem: mobility limitation s/p C3-C7 ACD w/ fusion and plating, pt has hx of UE numbness and weakness PT Diagnosis: mobility limitation s/p C3-C7 ACD w/ fusion and plating Start Time: 844 Stop time: 904 Time Calculation: 20 minutes Missed Treatment Time: minutes Total Treatment Time: 20 minutes TimedTreatment Code Minutes: 20 minutes Subjective: Pt reports doing very well, no discomfort. She reported her mom will be availab le at home during day and after work, pt looking forward to going home today. Objective: Treatment Provided: Pt demonstrated good logroll technique for OOB with bed flat and no moncada ls, she verbalized proper technique for BTB. Able to don [place] collar indpt, vc's given for pointers. Modified indpt transfer to FWW and for ambulation in hallways. Up/down 4 steps wit h 2 rails as at home, modified indpt. Pt elected small trial of walking w/o AD x 10', howeve r mild shakiness increased, so PT advised pt use walker for maximizing safety at this time. Sat in chair after activity, all needs in reach. Education: bed mobility, transfers, gait trg/safety, stair trg, [place] collar, HEP, grade B review Patient Status/Goals: Reflects last filed data of patient status; may be from multiple contributors. Gait Level of [place] : modified independence Assistive Device: 2 wheeled walker (FWW) Distance (feet): 300 Gait Pattern Analysis: (.) Gait Deviations: lorena decreased, stride length decreased Impairments: impaired balance Stairs Up/down 4 steps, modified indtp, 2 rails. Transfers Sit-Stand, Level of [place]: modified independence Stand-Sit, Level of [place]: modified independence, verbal cues required [id number], Assistive Device: 2 wheeled walker (FWW) Safety Issues: balance decreased during turns Impairments: impaired balance, postural control impaired Bed Mobility (pt utilizes logroll technique) Assistive Device: none Supine to Sit, Level of [place]: independent Sit to Supine, Level of [place]: not tested Safety Issues: decreased use of arms for pushing/pulling Impairments: postural control impaired STG GOALS Bed Mobility Goal, Activity Type: supine to sit/sit to supine [place] Level: independent Assistive Device: none Time to Achieve: 2 - 3 days Goal Status: met Transfer Training Goal, Activity Type: sit to stand/stand to sit [place] Level: modified independence Assistive Device: 2 wheeled walker (FWW) Time to Achieve: 2 - 3 days Goal Status: met, revised Gait Training Goal, [place] Level: modified independence Assistive Device: 2 wheeled walker (FWW) Distance: 150 Time to Achieve: 2 - 3 days Goal Status: met, revised Stairs Goal, [place] Level: modified independence Assistive Device: none Number of Stairs: 4 Time to Achieve: 2 - 3 days Goal Status: met Additional Goal #1: Pt will be Mod-I donning/doffing cervical collar and spinal precautions Time to Achieve: 2 - 3 days Goal Status: met Assessment: Pt demonstrated safe mobility using FWW. Stated at sessions end that she will u se 4WW or can use FWW at home. Declined trial with 4WW with offer, "not necessary". Mild sha kiness with mobility, but no LOB. Pt stated this was present before surgery, MD aware and or dered MRI. PT recommended using walker to maximize safety, reports having adequate support a vailable at home. D/c order in chart. No further PT planned. Pt to continue with indpt HEP w alking program and f/u per MD recommendations. D/cing home today. Physical Therapy Anticipated Discharge Needs are: Home with assist Have the anticipated discharge needs changed? NO Post discharge physical therapy recommendation: HEP walking program Plan for next treatment: d/c PT, going home today Electronically signed by: Cheryl Esteves, PT, 10/24/2015 9:12 lan of Care - [facility] Jennifer read RN - 10/24/2015 8:07 AM PDTProblem: Patient Care Overview (Adult) Goal: Care Team Goals & Evaluation PROBLEM-RELATED GOALS: 1. Pt will void within 6 hours of arriving to the floor post op. 2. Pt will tolerate solid food and PO pain med by POD 1. 3. Pt sensation will be intact and muscle strength of 5/5 by POD 2 4. Pt will achieve the pain score of 3/10 by POD 2 5. Pt will ambulate on day of surgery. 6. Pt will have a BM by POD 3. 7. Pt will be free of s/s of infections through POD 5. 8. Pt will tolerate dysphagia advanced textures with thin liquids with no overt s/s of airw ay compromise by 10/24/15. 9. Pt will be mod-I w/ in room activities by 10/25/15 STRATEGY TO ACHIEVE GOALS: Offer toileting, encourage ambulation to bathroom. If no void in 6 hours, then bladder scan pt and follow MD order. Start pt on liquids on arrival to the floor, increase diet as tolerate. Once taking juice o r solids, start pt on PO pain meds. Assess sensation and strength Q 4 hrs and prn. If decline noted, notify MD. Teach cervical precautions, cue prn, assist as needed. Encourage ambulation in halls and sitting in chair f or meals. Assess pain Q 4 hr and prn. Medicate prn, re-assess pain 30-60 minutes after med and re-med icate prn. Dangle pt on admit and encourage ambulation once pt is awake. Encourage ambulation to the b athroom. Give stool softener and laxative daily. If no BM by POD 2, use prn bowel meds until a BM is achieved. If discharged before POD 2, complete teaching to prevent constipation. Assess VS and temperature, dressing and lab work as directed. Notify MD w/ any concerns. Pt will be up in chair for all meals and follow swallow precautions. - Pt will fully participate in all therapy sessions - Pt will be out of bed and seated in bedside chair for all meals Outcome: Improving Goal Evaluation: 1. Ana voided several times so this was met 2. She tolerated solid foods. 3. She has baseline numbness in her fingers but otherwise her CMS is intact and her muscle strength is 5/5. 4. She almost achieved this goal, rating her pain at 4-5/10. She was rating this pain while using 1 [place] 10-325 at a time. 5. She walked the day of surgery so this goal was accomplished. 6. She did not have a BM in spite of being given Lactulose yesterday morning and a stool so ftener last night. She refused the 2nd dose of Lactulose stating she had to drive to [facility] and did not want to have an issue on the way there. 7. She is free from s/s of infection. 8. She tolerated her diet ok. 9. She was not yet Mod I in the room. She was SBA in the room w/FWW. Her LAMONT drain had about 80 mL in it overnight. Her dressing was CDI [facility] - 10/23/2015 11:51 PM PDTProblem: Patient Care Overview (Adult) Goal: Care Team Goals & Evaluation PROBLEM-RELATED GOALS: Pt will void within 6 hours of arriving to the floor post op. Pt will tolerate solid food and PO pain med by POD 1. Pt sensation will be intact and muscle strength of 5/5 by POD 2 Pt will achieve the pain score of 3/10 by POD 2 Pt will ambulate on day of surgery. Pt will have a BM by POD 3. Pt will be free of s/s of infections through POD 5. Pt will tolerate dysphagia advanced textures with thin liquids with no overt s/s of airway compromise by 10/24/15. 9. Pt will be mod-I w/ in room activities by 10/25/15 STRATEGY TO ACHIEVE GOALS: Offer toileting, encourage ambulation to bathroom. If no void in 6 hours, then bladder scan pt and follow MD order. Start pt on liquids on arrival to the floor, increase diet as tolerate. Once taking juice o r solids, start pt on PO pain meds. Assess sensation and strength Q 4 hrs and prn. If decline noted, notify MD. Teach cervical precautions, cue prn, assist as needed. Encourage ambulation in halls and sitting in chair f or meals. Assess pain Q 4 hr and prn. Medicate prn, re-assess pain 30-60 minutes after med and re-med icate prn. Dangle pt on admit and encourage ambulation once pt is awake. Encourage ambulation to the b athroom. Give stool softener and laxative daily. If no BM by POD 2, use prn bowel meds until a BM is achieved. If discharged before POD 2, complete teaching to prevent constipation. Assess VS and temperature, dressing and lab work as directed. Notify MD w/ any concerns. Pt will be up in chair for all meals and follow swallow precautions. - Pt will fully participate in all therapy sessions - Pt will be out of bed and seated in bedside chair for all meals Outcome: Improving Goal Evaluation: Pt arrived to the floor @ 1400 post 4 level cervical surgery, but tolerated well, cheerful. Had some lingering numbness in BLUE, said felt as though her arms/hands were "waking up". Pain managed with muscle relaxants and pain medications. IV patent. Pt ambulated to bed, progressed in following lumbar precautions to get in and out of bed and don cervical B brace . Able to sit by herself and walk with only SBA to BR. Voided within 6 hours of being on t he floor. Muscle strengths 5/5, strong pearl glue drier and plantar/dorsiflexion. Dressing was CDI. A little bleeding noted at LAMONT drain site, however no hematoma or swelling noted, dressing re inforced with a band aid. Swallow eval done and progressed to a dysphagia advanced diet, an d no problem swallowing PO medications. VSS. Will continue to monitor. lan of Robyn - Aaron Michael, PT Student - 10/23/2015 5:03 PM PDTFormatting of this note might be dif ferent from the original. Problem: Patient Care Overview (Adult) Goal: Care Team Goals & Evaluation PROBLEM-RELATED GOALS: Pt will void within 6 hours of arriving to the floor post op. Pt will tolerate solid food and PO pain med by POD 1. Pt sensation will be intact and muscle strength of 5/5 by POD 2 Pt will achieve the pain score of 3/10 by POD 2 Pt will ambulate on day of surgery. Pt will have a BM by POD 3. Pt will be free of s/s of infections through POD 5. Pt will tolerate dysphagia advanced textures with thin liquids with no overt s/s of airway compromise by 10/24/15. 9. Pt will be mod-I w/ in room activities by 10/25/15 STRATEGY TO ACHIEVE GOALS: Offer toileting, encourage ambulation to bathroom. If no void in 6 hours, then bladder scan pt and follow MD order. Start pt on liquids on arrival to the floor, increase diet as tolerate. Once taking juice o r solids, start pt on PO pain meds. Assess sensation and strength Q 4 hrs and prn. If decline noted, notify MD. Teach cervical precautions, cue prn, assist as needed. Encourage ambulation in halls and sitting in chair f or meals. Assess pain Q 4 hr and prn. Medicate prn, re-assess pain 30-60 minutes after med and re-med icate prn. Dangle pt on admit and encourage ambulation once pt is awake. Encourage ambulation to the b athroom. Give stool softener and laxative daily. If no BM by POD 2, use prn bowel meds until a BM is achieved. If discharged before POD 2, complete teaching to prevent constipation. Assess VS and temperature, dressing and lab work as directed. Notify w/ any concerns. Pt will be up in chair for all meals and follow swallow precautions. - Pt will fully participate in all therapy sessions - Pt will be out of bed and seated in bedside chair for all meals Physical Therapy Acute Initial Evaluation Note Patient Information Patient Name: Ana Wells Date of : 1955 Age: 60 y.o. History No diagnosis found. Date of Onset: 10/23/15 Past Medical History Diagnosis Date High cholesterol Hypertension Neuropathy History of tobacco use PONV (postoperative nausea and vomiting) Wears dentures lower partial Sleep apnea no CPAP Past Surgical History Procedure Laterality Date Hysterectomy Tonsillectomy Cholecystectomy Carpal tunnel release Bilateral Cyst excision anal Rectal fistula repaired No Known Allergies Precautions/Limitations: spinal, falls (pt is B-collar classification ) Left Lower Extremity Weight-Bearing: full weight-bearing Right Lower Extremity Weight-Bearing: full weight-bearing EVALUATION: SUBJECTIVE: History of Presenting Problem: Ana Wells is a 60 y.o. [facility] s/p C3-C7 ACD w/ fusion and plating, pt has hx of UE numbness a nd weakness PT Diagnosis: mobility limitation s/p C3-C7 ACD w/ fusion and plating Impairments Found: gait, locomotion, and balance Previous Level of Function: Ambulation: 0-->independent Transferrin-->independent Toiletin-->independent Bathin-->independent Dressin-->independent Eatin-->independent Communication: 0-->understands/communicates without difficulty Living Environment/Accessibility: Lives With: spouse Living Arrangements: house Number of Stairs to Enter Home: 3 Number of Stairs Within Home: 0 Patient s Goals: Pt would like to get back to working and completing yard work/gardening w/o pain OBJECTIVE : Patient Status/Goals: Reflects last filed data of patient status; may be from multiple contributors. Gait Level of [place] : contact guard assist, verbal cues required Assistive Device: 2 wheeled walker (FWW) Distance (feet): 100 Gait Pattern Analysis: 2-point gait Gait Deviations: lorena decreased, stride length decreased Impairments: impaired balance Stairs TBA Transfers Sit-Stand, Level of [place]: contact guard assist, verbal cues required Stand-Sit, Level of [place]: contact guard assist, verbal cues required Eeb-Qxeod-Qyw, Assistive Device: 2 wheeled walker (FWW) Safety Issues: balance decreased during turns Impairments: impaired balance, postural control impaired Bed Mobility (pt utilizes logroll technique) Assistive Device: none Supine to Sit, Level of [place]: contact guard assist Sit to Supine, Level of [place]: supervision required Safety Issues: decreased use of arms for pushing/pulling Impairments: postural control impaired ROM ROM Testing Results: no range of motion deficits identified Strength Strength Testing Results: no strength deficits were identified STG GOALS Bed Mobility Goal, Activity Type: supine to sit/sit to supine [place] Level: independent Assistive Device: none Time to Achieve: 2 - 3 days Goal Status: new Transfer Training Goal, Activity Type: sit to stand/stand to sit [place] Level: modified independence Assistive Device: 4 wheeled walker (4WW) Time to Achieve: 2 - 3 days Goal Status: new Gait Training Goal, [place] Level: modified independence Assistive Device: 4 wheeled walker (4WW) Distance: 150 Time to Achieve: 2 - 3 days Goal Status: new Stairs Goal, [place] Level: modified independence Assistive Device: none Number of Stairs: 4 Time to Achieve: 2 - 3 days Goal Status: new Additional Goal #1: Pt will be Mod-I donning/doffing cervical collar and spinal precautions Time to Achieve: 2 - 3 days Goal Status: new Assessment: Physical therapy orders received and acknowledged. Objective impairments inclu de balance and postural deficits. These impairments are causing functional limitations with patient s inability to perform functional tasks at a level of independence necessary for s afe return home. Complexities contributing to the need for skilled therapy include new onset multi-level fusion and hx of UE weakness and numbness. Rehabilitation potential: Patient demonstrates good potential to achieve established goals to address the documented impairments by participating in skilled physical therapy services . PLAN: bed mobility training, gait training, orthotic fitting/training, patient/family education, stair training, transfer training Physical Therapy will follow Ana Wells daily until discharge from therapy or discharg ed from the hospital. Anticipated days that therapy will be provided: 10/26/15 Physical Therapy Anticipated Discharge Needs: Ongoing PT services required. DC disposition TBD. Post discharge physical therapy recommendation: Equipment Recommendations: 4 wheeled walker (4WW) (pt owns 4WW) Patient and/or family has indicated understanding of treatment needs and actively participa oliver in the creation of this plan for care. Today's Treatment Start Time: 1540 Stop time: 1610 Time Calculation: 30 minutes Missed Treatment Time: minutes Total Treatment Time: 30 minutes TimedTreatment Code Minutes: 15 minutes Objective: Treatment Provided: Initial evaluation performed, pt received supine in bed, pt participate d in bed mobility, transfers, and gait training, pt left supine in bed w/ call alarm and per boyd belongings in reach Education: Pt educated on safety w/ mobility, pt educated on spinal precautions and donning /doffing of LSO Assessment: Pt was able to perform therapeutic activities without physical assistance from PT staff, though she did require moderate verbal cueing for bed mobility, the pt will benefi t from further education regarding logroll technique both in and out of bed, She demonstrate s appropriate utilization of FWW w/ UE support as needed, but will benefit from gait trainin g w/ 4WW as she has one at home already, pt displays LE shakiness w/ ambulation, which she s tates has been a previous problem, the pt will continue to benefit from skilled therapy inte rvention for improved functional independence and safety w/ activities necessary for safe re turn home w/ her . Plan for next treatment: STS 1P FWW, Bed mobility training, Prolonged ambulation, Stair tr aining Electronically signed by: Aaron Michael, PT Student, 10/23/2015 16:50 Associated attestation - Ernesto Ansari, PT - 10/23/2015 6:08 PM PDTI have reviewed this documentation and agree w/ the treatment provided. Adequate supervision was given and brian t CPT codes have been entered. Plan of Care - Hortencia Quan, Speech Pathologist - 10/23/2015 4:07 PM PDTFormattin g of this note might be different from the original. Problem: Patient Care Overview (Adult) Goal: Care Team Goals & Evaluation PROBLEM-RELATED GOALS: Pt will void within 6 hours of arriving to the floor post op. Pt will tolerate solid food and PO pain med by POD 1. Pt sensation will be intact and muscle strength of 5/5 by POD 2 Pt will achieve the pain score of 3/10 by POD 2 Pt will ambulate on day of surgery. Pt will have a BM by POD 3. Pt will be free of s/s of infections through POD 5. Pt will tolerate dysphagia advanced textures with thin liquids with no overt s/s of airway compromise by 10/24/15. STRATEGY TO ACHIEVE GOALS: Offer toileting, encourage ambulation to bathroom. If no void in 6 hours, then bladder scan pt and follow MD order. Start pt on liquids on arrival to the floor, increase diet as tolerate. Once taking juice o r solids, start pt on PO pain meds. Assess sensation and strength Q 4 hrs and prn. If decline noted, notify MD. Teach cervical precautions, cue prn, assist as needed. Encourage ambulation in halls and sitting in chair f or meals. Assess pain Q 4 hr and prn. Medicate prn, re-assess pain 30-60 minutes after med and re-med icate prn. Dangle pt on admit and encourage ambulation once pt is awake. Encourage ambulation to the b athroom. Give stool softener and laxative daily. If no BM by POD 2, use prn bowel meds until a BM is achieved. If discharged before POD 2, complete teaching to prevent constipation. Assess VS and temperature, dressing and lab work as directed. Notify MD w/ any concerns. Pt will be up in chair for all meals and follow swallow precautions. Speech Therapy Swallow Plan of Care Initial Evaluation Note Patient Information Patient Name: Ana Wells Date of : 1955 Age: 60 y.o. History No diagnosis found. Date of Onset: 10/23/2015 Past Medical History Diagnosis Date High cholesterol Hypertension Neuropathy History of tobacco use PONV (postoperative nausea and vomiting) Wears dentures lower partial Sleep apnea no CPAP Past Surgical History Procedure Laterality Date Hysterectomy Tonsillectomy Cholecystectomy Carpal tunnel release Bilateral Cyst excision anal Rectal fistula repaired No Known Allergies Precautions/Limitations: swallowing Summary: Pt seen for initial swallow eval today s/p admit for ACDF C3-C7. at bed side. B brace in place and Pt states did not attend spine class. Pt states that she has thro at pain during swallow at 4/10. NEUROPSYCHOLOGY SERVICE DIRECTOR educated on the need for pain management and to alert RN if pain is increasing. Pt states no dysphagia, and no GERD. She states bilateral numbness i n her hands which occasionally makes it hard to cut food. OME reveals no deficits. Pt's voic e is hoarse which she states is not normal, but has gotten better with increased water intak e. NEUROPSYCHOLOGY SERVICE DIRECTOR observed the pt set up her items and self feed bites of puree, chopped, mixed, and br ead textures. Pt did not report increased pain with these textures, but did use a liquid was h with chopped and bread textures. SHe had no overt s/s of airway compromise with any solid or liquid texture trialed. NEUROPSYCHOLOGY SERVICE DIRECTOR rec'd and educated the Pt on dysphagia advanced textures and thin liquids. NEUROPSYCHOLOGY SERVICE DIRECTOR rec'd increase this diet texture once Pt's odynophagia has resolved. Pt ve rbalized understanding. No further skilled NEUROPSYCHOLOGY SERVICE DIRECTOR services needed at this time. NEUROPSYCHOLOGY SERVICE DIRECTOR explained t exture recommendation to the RN. Speech language pathology will follow Ana Shah only until discharge from [facility] or discharged from the hospital. Speech Language Pathology Anticipated Discharge Needs are: home with family/caregiver, ADL assist Post discharge speech language pathology recommendation: no further Speech Therapy Planned Interventions: diet texture modification, patient/caregiver education NEUROPSYCHOLOGY SERVICE DIRECTOR Diagnosis: mild dysphagia c/b odynophagia and xerostomia At bedside, signs of aspiration included: odynophagia Risk of aspiration: Mild Swallow strategies: alternate between small bites and sips of food/liquid (cholorespetic spray prior to meals to reduce pain) Patient Status/Goals: Reflects last filed data of patient status; may be from multiple contributors. Swallow Recommendations Recommended Solid Texture: dysphagia advanced Recommended Liquid Texture: thin liquids Recommended Medication Delivery: whole pills with thin liquids Recommended Feeding/Eating Techniques: alternate between small bites and sips of food/liqui d (cholorespetic spray prior to meals to reduce pain) Swallow Swallow WNL despite odynophagia Non Instrumental/Clinical Swallow Exam Clinical Swallow Comments: Swallow WNL despite odynophagia Consistencies Trialed: thin liquids, solid, mixed consistencies, puree Mode of Presentation: self fed Volume(s) Presented (mL): patient controlled volumes Oral Phase Results: intact oral phase without signs of dysfunction Pharyngeal Phase Results: safe swallow, no signs/symptoms of aspiration or penetration Additional Documentation: (pain during swallow) STG Goals Pt will tolerate dysphagia advanced foods with no overt s/s of airway compromise in 1 visi t. Status: MET Today's Treatment Start Time: 1505 Stop time: 1530 Time Calculation: 25 minutes Missed Treatment Time: minutes Total Treatment Time: 25 minutes TimedTreatment Code Minutes: 0 minutes Electronically signed by: Hortencia Quan, SPEECH PATHO, 10/23/2015 16:04 p Note - Jayme Blevins DO - 10/23/2015 12:58 PM PDTDATE: 10/23/2015 SURGEON: Jayme Blevins DO INVESTIGATOR UTILITY BILL COMPLAINTS: Alex Sandra PA-C PREOPERATIVE DIAGNOSES: 1. Cervical kyphosis. 2. Cervical spondylosis C3-4, C4-5, C5-6, C6-7. 3. Cervical stenosis C3-4, C4-5, C5-6, C6-7. 4. Cervical myelopathy. 5. Cervicalgia. POSTOPERATIVE DIAGNOSES: 1. Cervical kyphosis. 2. Cervical spondylosis C3-4, C4-5, C5-6, C6-7. 3. Cervical stenosis C3-4, C4-5, C5-6, C6-7. 4. Cervical myelopathy. 5. Cervicalgia. PROCEDURE PERFORMED: 1. C3-4, C4-5, C5-6, C6-7 anterior interbody diskectomy with decompression of the spinal co rd and osteophytectomy. 2. C3-4, C4-5, C5-6, C6-7 anterior interbody arthrodesis. 3. C3-4, C4-5, C5-6, C6-7 insertion of interbody allograft. 4. C3-C7 anterior instrumentation. 5. Microsurgical techniques. 6. Fluoroscopic guidance for localization and instrumentation. ANESTHESIA: General endotracheal anesthesia. ESTIMATED BLOOD LOSS: 100 mL. DRAINS: LAMONT. COMPLICATIONS: None. DISPOSITION: Patient stable to the PACU. INDICATION FOR THE PROCEDURE: Mrs. Wells is a 60-year-old woman, who presented with sign s and symptoms and radiographic evidence of cervical kyphosis and stenosis - neck pain, arm numbness, weakness, and difficulty walking. She failed conservative treatment and symptoms c ontinued to progress. MRI of the cervical spine demonstrated kyphosis, spondylosis, and sten osis C3-C7 with spinal cord deformation and signal change. Given the progression of her symp toms, she decided to proceed with urgent anterior cervical fusion, C3-7. SURGICAL RISKS: The patient was well-apprised of all objectives, benefits, risks, and poten tial complications of the procedure, including, but not limited to worsening of the current status, possible need for further procedures, risks of infection, headache, CSF leak, possib le spinal cord injury resulting in paralysis, infection, neck hematoma, hoarseness of voice, injury to major vessels causing hemorrhage, stroke, loss of language function, coma, and ev en . Informed consent was obtained and secured in the chart after the patient voiced un derstanding of these risks and decided to proceed with the operation. DESCRIPTION OF THE PROCEDURE: The patient was transferred to operating room #2. She was giv en preoperative prophylactic IV antibiotics. The patient was sedated and intubated without d ifficulty by the Anesthesia service. Eyes were taped shut after ointment was applied to prev ent corneal abrasion. A Valencia Hugger was placed over the lower body to maintain control of co re body temperature. The patient was placed in the supine position with an IV bag under her scapulae and a Cloward pillow behind her neck. All pressure points were carefully padded. Th e skin was prepped and draped in standard surgical fashion. The area was marked with a mehul ng pen, utilizing standard landmarks such as midline and cricoid cartilage. A transverse neck incision was performed opposite the C5-6 level with a #10 scalpel blade. The incision was deepened through the platysmal muscle and the edges were undermined using s harp dissection. Hemostasis was achieved using Bovie electrocautery as well as bipolar force ps. Further blunt and sharp dissection was carried down in a plane lateral to the omohyoid m uscle and medial to the carotid sheath until the anterior longitudinal ligament was reached in front of the spine. The C-arm fluoroscopy unit was draped with sterile drapes and brought into the operative fi eld. The level of C4-5 was confirmed by placing a marker needle under fluoroscopic x-ray. Th e longus colli muscles were undermined with monopolar electrocautery on either side until th e uncovertebral joints were exposed. Ramsay distraction pins were placed at the C4-5 level, and the diskectomy was initiated with a #11 blade at the C4-5 level. Diskectomy was carried out utilizing pituitary rongeurs, Kerrison rongeurs, and curettes to widen and remove the an terior disk-spur complex. The diskectomy was carried down to the level of the posterior long itudinal ligament using high-speed electric drilling. Then, abrasion of the disk endplates w as performed, and the posterior disk-spur complexes were removed down to the level of the po sterior longitudinal ligament. The PLL was entered with 1B Codman curette. It was excised co mpletely to fully expose the dura and further decompress the spinal cord. The osteophytectomy was completed with high-speed electric drilling to excise osteophytes a t the posterior margin of the superior and inferior endplates and the neural foramina bilate rally. These were decompressed using high-speed electric drilling as well as Kerrison rongeu rs. Using a blunt nerve hook, the foramina and undersurface of both vertebral bodies were tr acked, and exiting nerve root was found to be well decompressed. The clean disk space was sized appropriately with a trial, and a 8 x 18 x 14 mm cortical reyna ne from [facility] was chosen, and to achieve arthrodesis, endplates of the disk space were abraded again, and then, the permanent spacer was inserted into the disk space. It fit well and was snug. Next, attention was turned to the C5-6 disk space where the same procedure ensued. Diskecto my was initiated with a #11 blade by incising the annulus at C5-6. It was carried out using pituitary rongeurs , Kerrison rongeurs, and curettes to widen and remove the anterior disk-s pur complex down to the level of the PLL. The PLL was entered using a 1B Codman curette. It was uplifted to fully expose the dura and further decompress the spinal cord. The osteophytectomy was completed with high-speed electric drilling to excise osteophytes a t the posterior margin of the superior inferior endplates. Neural foramina bilaterally were decompressed with high-speed electric drilling and Kerrison rongeurs. Using the blunt nerve hook, the foramina and undersurface of both vertebral bodies were tracked, and exiting nerve roots were found to be well decompressed. The clean disk space was sized appropriately with a trial interbody spacer to achieve arthr odesis. Endplates were abraded again, and the permanent 6 x 18 x 14 mm lordotic cortical bon e was chosen and inserted into the disk space. It fit well and was snug. Next, the Ramsay pi ns were moved to the C6 and C7 vertebral bodies. Bone wax was used to fill the holes created by the Ramsay pins previously. Next, attention was turned to the C6-7 level. The diskectomy was initiated with #11 by ever sing the annulus at C6-7. Diskectomy was carried out utilizing pituitary rongeurs, Kerrison rongeurs, and curettes to widen and remove the anterior disk-spur complex. The diskectomy wa s carried down to the level of the PLL using high-speed electric drilling. Then, abrasion of the disk endplates was performed , and the posterior disk-spur complexes were removed down to the level of the PLL. The PLL was entered with 1B Codman curette. It was excised to fully expose the dura and further decompress the spinal cord. The osteophytectomy was completed with high-speed electric drilling to excise osteophytes a t the posterior margin of the superior and inferior endplates and the neural foramina bilate rally. Using blunt nerve hooks, the foramina and undersurface of both vertebral bodies were tracked, and exiting nerve roots were found to be well decompressed. The clean disk space was sized appropriately with a trial interbody cage, and to achieve ar throdesis, the endplates were abraded again, and permanent 8 x 18 x 14 mm cortical bone was chosen and inserted into the disk space. It fit well and was snug. Next, the Ramsay distraction pins were placed at the C3-4 level, and the diskectomy was ini tiated with a #11 blade at the C3-4 level. Diskectomy was carried out utilizing pituitary ro ngeurs, Kerrison rongeurs, and curettes to widen and remove the anterior disk-spur complex. The diskectomy was carried down to the level of the posterior longitudinal ligament using hi gh-speed electric drilling. Then, abrasion of the disk endplates was performed, and the post erior disk-spur complexes were removed down to the level of the posterior longitudinal ligam ent. The PLL was entered with 1B Codman curette. It was excised completely to fully expose t he dura and further decompress the spinal cord. The osteophytectomy was completed with high-speed electric drilling to excise osteophytes a t the posterior margin of the superior and inferior endplates and the neural foramina bilate rally. These were decompressed using high-speed electric drilling as well as Kerrison rongeu rs. Using a blunt nerve hook, the foramina and undersurface of both vertebral bodies were tr acked, and exiting nerve root was found to be well decompressed. The clean disk space was sized appropriately with a trial, and a 6 x 18 x 14 mm cortical reyna ne was chosen, and to achieve arthrodesis, endplates of the disk space were abraded again, a nd then, the permanent spacer was inserted into the disk space. It fit well and was snug. Next, the Ramsay pins were removed and bone wax was placed where the pins were to arrest reyna ne bleeding. A 80 mm Tool [employer]ational plate was chosen. This is by [employer]. It was p laced on top of the spine. There were large anterior osteophytes, which were drilled down un til the plate fit appropriately, and then, 4.0 x 17 mm variable angled screws were placed at each hole in the plate at C3. Two 4 x 17 mm variable angle screws were placed at C4. Two 4 x 16 mm variable angle screws were placed at C5. Two 4 x 17 mm variable angle screws were pl aced at C6. Two 4 x 17 mm variable angle screws were placed at C7. A total of 10 screws were placed, 2 in each level from C3 to C7. Fluoroscopic x-ray confirmed acceptable placement of the spacers, plate, and screws. The wo und was inspected, and hemostasis was achieved. A Mack-Chatterjee drain was placed, and a 3-0 Vicryl suture was used to reapproximate the platysmal layer in running fashion. A 4-0 Vicryl suture was used to reapproximate the subcuticular layer in running fashion. Mastisol and St marjan-Strips were placed over the incision, and the Mack-Chatterjee drain was taped into place. All sponge counts, needle counts, and instrument counts were correct at the end of the case x2. The patient tolerated the procedure well and was transferred in stable condition to the recovery room. rief O p Note - Jayme Blevins DO - 10/23/2015 12:56 PM PDTFormatting of this note might be diffe rent from the original. Brief Operative Note Ana Wells 60 y.o. female 1955 [id number] Proc. Date 10/23/2015 Preop Dx Spondylosis and stenosis C3-7 with myelopathy Postop Dx same Procedure C3-4, C4-5, C5-6, C6-7 Anterior Cervical Discectomy w/ Fusion and Plating Anesthesia General Surgeon Jayme Blevins DO - Primary Facer Operator ORLANDO Buckley EBL 100 mL Findings Findings consistent with scheduled procedure. No other abnormalities found. Complications none Specimens * No specimens in log * Drains Drain/Device Site 10/23/15 1211 #1 Right anterior neck (Active) Electronically signed by: Jayme Blevins DO 10/23/2015 12:56 [facility] Jayme Blevins DO at 10/08 12:57 PM PDTdocumented in this encounter Plan of Treatment +--------+---------+ + + + | Date | Type | Specialty | Care Team | Description | +--------+---------+ + + + | 06/04/ | Office | Sleep Medicine | David Henriquez PA | | | 2020 | Visit | | [address] | | | | | | [place] | | | | | | [id number] | | | | | | | | +--------+---------+ + + + documented as of this encounter Procedures + +--------+ + + + | Procedure Name | Priori | Date/Time | Associated Diagnosis | Comments | | | ty | | | | + +--------+ + + + | XR CERVICAL SPINE 2 | STAT | 10/23/2015 | | Results for this | | OR 3 VIEWS | | 2:14 PM | | procedure are in the | | | | PDT | | results section. | + +--------+ + + + | FL ANANYA STATS NO | Routin | 10/23/2015 | | Results for this | | CHARGE | e | 12:38 PM | | procedure are in the | | | | PDT | | results section. | + +--------+ + + + | FUSION CERVICAL | | 10/23/2015 | Disease of spinal | | | ANTERIOR W/ PLATING | | 9:46 AM | cord (HCC) | | | | | PDT | | | + +--------+ + + + +---+--------+ | | Case | | | Notes | | | | | | Origin | | | al | | | Schedu | | | ler | | | Commen | | | ts/Not | | | es | | | Sent | | | Over | | | 10/17/ | | | 2015 @ | | | | | | 0946:[id number] | | | -Arm, | | | Drill, | | | | | | Micros | | | cope | | | Est | | | time: | | | 2.5H | | | Biolog | | | ics: | | | Grafto | | | n | | | Table: | | | | | | Skytro | | | n | +---+--------+ | | | | | Specia | | | l | | | Needs | | | Ricci | | | | | | Anselmo | | | - | | | Atlant | | | is | | | Transi | | | tional | | | , Bone | | | | | | Spacer | +---+--------+ + +--------+ +---+ + | TYPE AND SCREEN | Routin | 10/23/2015 | | Results for this | | | e | 9:38 AM | | procedure are in the | | | | PDT | | results section. | + +--------+ +---+ + documented in this encounter Results XR Cervical Spine 2 or 3 Views (10/23/2015 2:14 PM PDT) + + | Specimen | + + | | + + + + + | Narrative | Performed At | + + + | EXAM: XR CERVICAL SPINE 2 OR 3 VIEWS dated 10/23/2015 12:00 AM | [facility] | | HISTORY:post op cervical surgery COMPARISON: Preoperative images | | | dated August 23, 2015. FINDINGS:3 views. Anterior cervical | | | discectomy and fusion related changes from C3 through C7. Hardware | | | is intact. Interbody grafts are in place at the intervening disc | | | spaces. This improves disc height. There are expected operative | | | changes in the precervical soft tissues. There is a drain catheter | | | in place. IMPRESSION - No radiographic evidence for immediate | | | complication. Dictated and Signed by: Suraj Thayer MD | | | Electronically signed: 10/23/2015 2:32 PM | | + + + + + | Procedure Note | + + | Anthony, Rad Results In - 10/23/2015 2:35 PM PDT EXAM: XR CERVICAL SPINE 2 OR 3 VIEWS | | dated 10/23/2015 12:00 AMHISTORY:post op cervical surgeryCOMPARISON: Preoperative images | | dated August 23, 2015.FINDINGS:3 views. Anterior cervical discectomy and fusion | | related changes fromC3 through C7. Hardware is intact. Interbody grafts are in place | | at theintervening disc spaces. This improves disc height. There are expectedoperative | | changes in the precervical soft tissues. There is a drain catheter inplace.IMPRESSION | | -No radiographic evidence for immediate complication.Dictated and Signed by: Suraj Ramos | | MD Jeovany Electronically signed: 10/23/2015 2:32 PM | |intervening disc spaces. This improves disc height. There are expected | |operative changes in the precervical soft tissues. There is a drain catheter in | |place. | | | |IMPRESSION - | | | |No radiographic evidence for immediate complication. | | | |Dictated and Signed by: Suraj Thayer MD | | Electronically signed: 10/23/2015 2:32 PM | + + + +---------+ + + | Performing | Address | City/State/Zipcode | Phone Number | | Organization | | | | + +---------+ + + | [facility] | | | | + +---------+ + + [place] C-Arm Stats No Charge (10/23/2015 12:38 PM PDT) + [...] | | | + +---------+ + + Type and Screen (10/23/2015 9:38 AM PDT) + + + + + + | Component | Value | Ref Range | Performed | Pathologist | | | | | At | Signature | + + + + + + | [facility]BO | O | | [facility] | | | | | [facility] | | + + + + + + | Rh Type | Positive | | [facility] | [facility] - | | | | | | [facility] | | + + + + + + | Antibody | Negative | | [facility] | | | Screen | | | [facility] | | | | | | [facility] | | | | [facility] - | | | | | | [facility]OD BANK | | + + + + + + + + | Specimen | + + | Blood specimen | | (specimen) | + + + + + + + | Performing | Address | City/State/Zipcode | Phone Number | | Organization | | | | + + + + + | [facility] | [address] | [place], [place] | | | [facility] | | [id number] | | | - BLOOD BANK | | | | + + + + + documented in this encounter Visit Diagnoses + + | Diagnosis | + + | Cervical myelopathy (HCC) - Primary Cervical spondylosis with myelopathy | + + | Cervical spinal stenosis Spinal stenosis in cervical region | + + documented in this encounter Administered Medications + +--------+ +-------+------+------+ | Medication Order | MAR | Action | Dose | Rate | Site | | | Action | Date | | | | + +--------+ +-------+------+------+ | atorvaSTATin (LIPITOR) tablet | Given | 10/23/19 | 10 mg | | | | 10 mg 10 mg, Oral, NIGHTLY, | | 16 8:48 | | | | | First dose on Thu10/23/15 at | | PM PDT | | | | | 2100, Post-op/Phase II | | | | | | + +--------+ +-------+------+------+ +---+---+ | | | +---+---+ + +---------+ +-----+-------+---+ | ceFAZolin in dextrose (ANCEF) | New Bag | 10/24/19 | 2 g | 100 | | | IVPB 2 g 2 g, Intravenous, | | 16 1:22 | | mL/hr | | | Administer over 30 Minutes, EVERY | | AM PDT | | | | | 8 HOURS INTERVAL, First dose on | | | | | | | 10/23/15 at 1800, For 2 doses, | | | | | | | Start 8 hours after previous | | | | | | | dose. Last dose to be given | | | | | | | within 24 hours of surgery end | | | | | | | time., Post-op/Phase II, | | | | | | | Indications: Surgical Prophylaxis | | | | | | + +---------+ +-----+-------+---+ +---------+ +-----+-------+---+ | New Bag | 10/23/19 | 2 g | 100 | | | | 16 6:41 | | mL/hr | | | | PM PDT | | | | +---------+ +-----+-------+---+ +---+---+ | | | +---+---+ + +-------+ +------+---+---+ | diazepam (VALIUM) tablet 5 mg | Given | 10/24/19 | 5 mg | | | | 5 mg, Oral, EVERY 6 HOURS PRN, | | 16 10:52 | | | | | Muscle spasms, Starting Tue | | AM PDT | | | | | 10/23/15 at 1435, Use if | | | | | | | methocarbamol and cyclobenzaprine | | | | | | | ineffective or not ordered., | | | | | | | Post-op/Phase II | | | | | | + +-------+ +------+---+---+ +-------+ +------+---+---+ | Given | 10/23/19 | 5 mg | | | | | 16 2:50 | | | | | | PM PDT | | | | +-------+ +------+---+---+ +---+---+ | | | +---+---+ + +-------+ +--------+---+---+ | docusate sodium (COLACE) | Given | 10/24/19 | 100 mg | | | | capsule 100 mg 100 mg, Oral, 2 | | 16 8:32 | | | | | TIMES DAILY, First dose on Thu | | AM PDT | | | | | 10/23/15 at 2100, First line agent | | | | | | | for constipation, Post-op/Phase | | | | | | | II | | | | | | + +-------+ +--------+---+---+ +-------+ +--------+---+---+ | Given | 10/23/19 | 100 mg | | | | | 16 8:48 | | | | | | PM PDT | | | | +-------+ +--------+---+---+ +---+---+ | | | +---+---+ + +-------+ +-------+---+---+ | escitalopram (LEXAPRO) tablet | Given | 10/24/19 | 10 mg | | | | 10 mg 10 mg, Oral, DAILY, First | | 16 8:32 | | | | | dose on Thu10/23/15 at 1500, | | AM PDT | | | | | Post-op/Phase II | | | | | | + +-------+ +-------+---+---+ +---+---+ | | | +---+---+ + +-------+ +--------+---+---+ | gabapentin (NEURONTIN) capsule | Given | 10/24/19 | 600 mg | | | | 600 mg 600 mg, Oral, 3 TIMES | | 16 8:32 | | | | | DAILY, First dose on Thu10/23/15 | | AM PDT | | | | | at 1500, Post-op/Phase II | | | | | | + +-------+ +--------+---+---+ +-------+ +--------+---+---+ | Given | 10/23/19 | 600 mg | | | | | 16 8:47 | | | | | | PM PDT | | | | +-------+ +--------+---+---+ | Given | 10/23/19 | 600 mg | | | | | 16 2:55 | | | | | | PM PDT | | | | +-------+ +--------+---+---+ +---+---+ | | | +---+---+ + +-------+ + +---+---+ | HYDROcodone-acetaminophen | Given | 10/24/19 | 1 tablet | | | | (NORCO) 10-325 mg per tablet 1-2 | | 16 10:52 | | | | | tablet 1-2 tablet, Oral, EVERY 4 | | AM PDT | | | | | HOURS PRN, Pain, Starting Tue | | | | | | | 10/23/15 at 1435, If ineffective | | | | | | | or not tolerated use Oxycodone if | | | | | | | ordered., Post-op/Phase II | | | | | | + +-------+ + +---+---+ +-------+ + +---+---+ | Given | 10/24/19 | 1 tablet | | | | | 16 6:44 | | | | | | AM PDT | | | | +-------+ + +---+---+ | Given | 10/24/19 | 1 tablet | | | | | 16 3:26 | | | | | | AM PDT | | | | +-------+ + +---+---+ +---+---+ | | | +---+---+ + +---------+ +--------+--------+---+ | methocarbamol (ROBAXIN) 750 mg | New Bag | 10/24/19 | 750 mg | 143.3 | | | in sodium chloride 0.9% 100 mL | | 16 5:46 | | mL/hr | | | IVPB 750 mg, Intravenous, | | AM PDT | | | | | Administer over 45 Minutes, EVERY | | | | | | | 8 HOURS (3 times per day), First | | | | | | | dose on Thu10/23/15 at 1400, For | | | | | | | 4 doses, Post-op/Phase II | | | | | | + +---------+ +--------+--------+---+ +---------+ +--------+--------+---+ | New Bag | 10/23/19 | 750 mg | 143.3 | | | | 16 9:14 | | mL/hr | | | | PM PDT | | | | +---------+ +--------+--------+---+ | New Bag | 10/23/19 | 750 mg | 143.3 | | | | 16 1:30 | | mL/hr | | | | PM PDT | | | | +---------+ +--------+--------+---+ +---+---+ | | | +---+---+ + +-------+ +-------+---+---+ | metoclopramide (REGLAN) 5 mg/mL | Given | 10/23/19 | 10 mg | | | | injection 10 mg 10 mg, | | 16 1:20 | | | | | Intravenous, ONCE, Thu10/23/15 at | | PM PDT | | | | | 1300, For 1 dose, Protect from | | | | | | | light., Recovery/Phase I | | | | | | + +-------+ +-------+---+---+ +---+---+ | | | +---+---+ + +-------+ +------+---+---+ | ondansetron (ZOFRAN) injection | Given | 10/23/19 | 4 mg | | | | 4 mg 4 mg, Intravenous, ONCE | | 16 1:05 | | | | | PRN, Nausea, Starting e 10/23/15 | | PM PDT | | | | | at 1236, For 1 dose, | | | | | | | Recovery/Phase I | | | | | | + +-------+ +------+---+---+ +---+---+ | | | +---+---+ + +-------+ +---------+---+---+ | phenol-menthol (CEPASTAT) | Given | 10/24/19 | 1 | | | | lozenge 1 lozenge 1 lozenge, | | 16 8:30 | lozenge | | | | Buccal, EVERY 2 HOURS PRN, Pain, | | AM PDT | | | | | Starting Thu10/23/15 at 1435, | | | | | | | Post-op/Phase II | | | | | | + +-------+ +---------+---+---+ +---+---+ | | | +---+---+ + +---------+ +---------+---+ + | scopolamine (TRANSDERM-SCOP) 1 | Patch | 10/23/19 | 1 patch | | Ear-Behi | | mg/3 days 1 patch 1 patch, | Applied | 16 9:51 | | | nd Left | | Transdermal, EVERY 72 HOURS, | | AM PDT | | | | | First dose on Thu10/23/15 at | | | | | | | 0945, Each patch contains 1.5 mg | | | | | | | and is designed to deliver 1 mg | | | | | | | over 3 days. DO NOT CUT patch. | | | | | | | (If patch needed, use | | | | | | | occlusive dressing to expose only | | | | | | | of patch to skin.), Pre-op | | | | | | + +---------+ +---------+---+ + +---+---+ | | | +---+---+ + +---------+ +---+---+---+ | sodium chloride 0.9% (NS) | New Bag | 10/23/19 | | | | | infusion at 100 mL/hr, | | 16 10:00 | | | | | Intravenous, CONTINUOUS, Starting | | AM PDT | | | | | 10/23/15 at 0945, Pre-op | | | | | | + +---------+ +---+---+---+ +---------+ +--------+-------+---+ | New Bag | 10/23/19 | 1,000 | 100 | | | | 16 9:52 | mLs | mL/hr | | | | AM PDT | | | | +---------+ +--------+-------+---+ +---+---+ | | | +---+---+ + +---------+ +---+-------+---+ | sodium chloride 0.9% (NS) | New Bag | 10/24/19 | | 100 | | | infusion at 100 mL/hr, | | 16 3:15 | | mL/hr | | | Intravenous, CONTINUOUS, Starting | | AM PDT | | | | | Thu10/23/15 at 1500, | | | | | | | Post-op/Phase II | | | | | | + +---------+ +---+-------+---+ +---------+ +---+-------+---+ | New Bag | 10/23/19 | | 100 | | | | 16 10:42 | | mL/hr | | | | PM PDT | | | | +---------+ +---+-------+---+ +---+---+ | | | +---+---+ + +-------+ +------+---+---+ | varenicline (CHANTIX) tablet 1 | Given | 10/24/19 | 1 mg | | | | mg 1 mg, Oral, 2 TIMES DAILY, | | 16 8:32 | | | | | First dose on Thu10/23/15 at | | AM PDT | | | | | 2100, Post-op/Phase II | | | | | | + +-------+ +------+---+---+ +---+---+ | | | +---+---+ documented in this encounter
--- OUTSIDE RECORDS SUMMARY | ~2020-03-15 | XMS | Encounter Summary ---
Demographics + + + | Address | [address] | | | [place] [address] | + + + | Home Phone | | + + + | Preferred Language | Unknown | + + + | Marital Status | | + + + | Lutheran Affiliation | Unknown | + + + | Race | Unknown | + + + | Ethnic Group | Unknown | + + + Author + + + | Author | [facility] | | | and Scout | + + + | Organization | [facility] | | | and [place] | + + + | Address | Unknown | + + + | Phone | Unavailable | + + + Support + + + + + | Name | Relationship | Address | Phone | + + + + + | Kendall MUNSON | [address] | | | | | [place] [address] | | + + + + + Care Team Providers + +------+ + | Care Software Engineer Developer Name | Role | Phone | + +------+ + | Rex Umanzor MD | PCP | | + +------+ + Reason for Visit + +--------+ + | Reason | Onset | Comments | | | Date | | + +--------+ + | Imaging Only | 03/17/ | MRI of the Cervical Spine | | | 2015 | | + +--------+ + Encounter Details +--------+ + + + + | Date | Type | Department | Care Team | Description | +--------+ + + + + | 03/17/ | Telephone | [facility] | Jayme Blevins, | Imaging Only (MRI of | | 2015 | | NEUROSURGERY [address] | DO [address] | the Cervical Spine | | | | [address] | [address] [place], [place] | ) | | | | [place], [place] | [id number] | | | | | [address] | | | | | | [phone] | | | +--------+ + + + [...] this encounter Miscellaneous Notes Telephone Encounter - Ilana Chakraborty RN - 03/25/2016 4:22 PM PDTMRI has been completed and is available on i-site for review. Imaging is available for next OV. Electronically signed by CELY Preston t 03/25/2016 4:23 PM PDTTelephone Encounter - Ilana Chakraborty RN - 03/17/2016 5:20 PM PDTCalled Ana Wells to inform her that her MRI of the Cervical Spine has b een approved and is ready to be scheduled. Patient verbalized understanding, she denies bein g claustrophobic, but has hx with cervical fusion. Patient was transferred to imaging for scheduling. Patient has been scheduled on: 03/19/16 for MRI and Xray. Next OV: 05/01/[address] Blevins. documented in this encounter Plan of Treatment +--------+---------+ + + + | Date | Type | Specialty | Care Team | Description | +--------+---------+ + + + | 06/04/ | Office | Sleep Medicine | David Henriquez PA | | | 2020 | Visit | | [address] | | | | | | [place] | | | | | | [id number] | | | | | | | | +--------+---------+ + + + documented as of this encounter Visit Diagnoses Not on filedocumented in this encounter"
--- OUTSIDE RECORDS SUMMARY | ~2020-03-15 | XMS | Encounter Summary ---
Demographics + + + | Address | [address] | | | [place] [address] | + + + | Home Phone | | + + + | Preferred Language | Unknown | + + + | Marital Status | | + + + | Muslim Affiliation | Unknown | + + + | Race | Unknown | + + + | Ethnic Group | Unknown | + + + Author + + + | Author | [facility] | | | and Scout | + + + | Organization | [facility] | | | and [place] | + + + | Address | Unknown | + + + | Phone | Unavailable | + + + Support + + + + + | Name | Relationship | Address | Phone | + + + + + | Kendall MUNSON | [address] | | | | | [place] [address] | | + + + + + Care Team Providers + +------+ + | Care Nurse Head Name | Role | Phone | + +------+ + | Rxe Umanzor MD | PCP | | + +------+ + Reason for Visit + + + | Reason | Comments | + + + | CPAP Follow Up | | + + + Encounter Details +--------+---------+ + + + | Date | Type | Department | Care Team | Description | +--------+---------+ + + + | 03/23/ | Office | [facility] | David Henriquez PA | PRISCILLA on CPAP (Primary | | 2017 | Visit | SLEEP DISORDER [address] | [address] | Dx) | | | | [address] | [place] | | | | | [place] [address] | [address] | | | | | [phone] | | | +--------+---------+ + + + [...] + + + | Blood Pressure | 108/60 | 03/23/2017 1:55 PM | | | | | PDT | | + + + + + | Pulse | 103 | 03/23/2017 1:55 PM | | | | | PDT | | + + + + + | Temperature | - | - | | + + + + + | Respiratory Rate | 16 | 03/23/2017 1:55 PM | | | | | PDT | | + + + + + | Oxygen Saturation | 96% | 03/23/2017 1:55 PM | | | | | PDT | | + + + + + | Inhaled Oxygen | - | - | | | Concentration | | | | + + + + + | Weight | 82.7 kg (182 lb 6.4 | 03/23/2017 1:55 PM | | | | oz) | PDT | | + + + + + | Height | - | - | | + + + + + | Body Mass Index | 33.36 | 11/27/2016 2:05 PM | | | [...] encounter Progress Notes David Henriquez PA - 03/23/2017 2:00 PM PDT Subjective: Patient ID: Ana Wells is a 61 y.o. female. HPI last office visit: 01/21/2017 date of HSAT: 11/04/2016 AHI: 68.8 RDI: O2%: 84% with 91.1 minutes below 90% Machine type: ResMed AirSense 10 Mask type: full face mask DME: [facility] [place] pressure: 4-20 cm Median: 10.3 cm 95%: 12.5 cm maximum: 14.0 cm Nights using CPAP: 56/61 % of nights >4 hours: 85% average usage (all nights): 6:24 average usage (nights used): 6:58 AHI: 1.3 Ana comes in for CPAP compliance. She continues to do well with her CPAP, wearing it nigh tly for the duration of her sleep. Her CPAP has become a regular part of her sleep routine. She does not consider sleeping without it. She says the improvement in her daytime sleepi ness and energy has been significant. Her frequently comments to her about how much energy she has now. He is also sleeping much better because she is no longer snoring and i s less restless. She does not have any questions or concerns. I have discussed the download and results of the paperwork in detail. She is unchanged or improved in nearly all categories, with no areas of concern. She declined significantly in Role Emotional, but thinks that she answered questions relating to this backwards. The down load shows that her sleep apnea is controlled, with an AHI of 1.3. It also shows that her l eaks are controlled. BP 108/60 | Pulse 103 | Resp 16 | Wt 82.7 kg (182 lb 6.4 oz) | SpO2 96% | BMI 33.36 kg /m Review of Systems Objective: Physical Exam Assessment: Problem #1: OBSTRUCTIVE SLEEP APNEA ([id number]) This is controlled with CPAP. She is doing well with her CPAP compliance. Plan: 1. She is to continue with CPAP indefinitely. 2. Touch base with medical supplier twice per year to ensure that all equipment is satisfa ctory. I will follow up again in 1 year, sooner prn. At that time we will reassess with all appro priate paperwork. Fifteen minutes were spent mdiz-es-szpu, with the majority of time spent in counseling. David Henriquez PA-C cc: Rex Umanzor MD ury Weiss CNA - 03/23/2017 2:00 PM PDT 03/23/17 1300 [place] Depression Inventory-II Depression Score 0- No Depression Insomnia Severity Index Insomnia Severity Index 0 [place] Sleepiness Scale Sitting and reading 1 Watching TV 0 Sitting, inactive in a public place (e.g. a theatre or a meeting) 0 As a passenger in a car for an hour without a break 0 Lying down to rest in the afternoon when circumstances permit 1 Sitting and talking to someone 0 Sitting quietly after a lunch without alcohol 0 In a car, while stopped for a few minutes in traffic 0 Total score 2 SF-36v2 Score PF 47.97 RP 41.44 BP 38.21 GH 55.56 VT 70.42 SF 42.3 RE 14.39 MH 63.95 PCS 48.18 MCS 46.64 documented in this enco unter Plan of Treatment +--------+---------+ + + + | Date | Type | Specialty | Care Team | Description | +--------+---------+ + + + | 06/04/ | Office | Sleep Medicine | David Henriquez PA | | | 2019 | Visit | | [address] | | | | | | [place] | | | | | | [address] | | | | | | | | +--------+---------+ + + + documented as of this encounter Visit Diagnoses + + | Diagnosis | + + | PRISCILLA on CPAP - Primary Obstructive sleep apnea (adult) (pediatric) | + + documented in this encounter"
--- OUTSIDE RECORDS SUMMARY | ~2020-03-15 | XMS | Encounter Summary ---
Demographics + + + | Address | [address] | | | [place] [address] | + + + | Home Phone | | + + + | Preferred Language | Unknown | + + + | Marital Status | | + + + | Protestant Affiliation | Unknown | + + + | Race | Unknown | + + + | Ethnic Group | Unknown | + + + Author + + + | Author | [facility] | | | and Scout | + + + | Organization | [facility] | | | and [place] | + + + | Address | Unknown | + + + | Phone | Unavailable | + + + Support + + + + + | Name | Relationship | Address | Phone | + + + + + | Kendall MUNSON | [address] | | | | | [place] [address] | | + + + + + Care Team Providers + +------+ + | Care Polishing Wheel Setter Name | Role | Phone | + +------+ + | Rex Umanzor MD | PCP | | + +------+ + Reason for Visit +--------+--------+ + | Reason | Onset | Comments | | | Date | | +--------+--------+ + | Other | 10/24/ | | | | 2016 | | +--------+--------+ + Encounter Details +--------+ + + + + | Date | Type | Department | Care Team | Description | +--------+ + + + + | 10/24/ | Telephone | [facility] [place] | Jayme Blevins, | Other | | 2017 | | NEUROSURGERY [address] | DO [address] | | | | | [address] | [address] [place], [place] | | | | | [place], [place] | [address] | | | | | [address] | | | | | | [phone] | | | +--------+ + + + [...] this encounter Miscellaneous Notes Telephone Encounter - Barbara Robbins - 10/24/2016 10:32 AM PDTPatient called to ask if s he was due for her 6 month PO xrays. Per Anastasiya patient can come in anytime and get those d one. Patient will call once completed documented in this encounter Plan of Treatment [...] [place] | | | | | | [phone] | | | | | | | | +--------+---------+ + + + documented as of this encounter Visit Diagnoses Not on filedocumented in this encounter"
--- OUTSIDE RECORDS SUMMARY | ~2020-03-15 | XMS | Encounter Summary ---
Demographics + + + | Address | [address] | | | [place] [address] | + + + | Home Phone | | + + + | Preferred Language | Unknown | + + + | Marital Status | | + + + | Zoroastrianism Affiliation | Unknown | + + + | Race | Unknown | + + + | Ethnic Group | Unknown | + + + Author + + + | Author | [facility] | | | and Scout | + + + | Organization | [facility] | | | and [place] | + + + | Address | Unknown | + + + | Phone | Unavailable | + + + Support + + + + + | Name | Relationship | Address | Phone | + + + + + | Kendall MUNSON | [address] | | | | | [place] [address] | | + + + + + Care Team Providers + +------+ + | Care Shoe Sprayer Name | Role | Phone | + +------+ + | Don Morin MD | PCP | | + +------+ + Reason for Visit +--------+--------+ + | Reason | Onset | Comments | | | Date | | +--------+--------+ + | Other | 02/03/ | | | | 2015 | | +--------+--------+ + Encounter Details +--------+ + + + + | Date | Type | Department | Care Team | Description | +--------+ + + + + | 02/03/ | Telephone | [facility] [place] | Jayme Blevins, | Other | | 2016 | | NEUROSUR[address]ERY [address] | DO [address] | | | | | [address] | [address] [place], [place] | | | | | [place], [place] | [address] | | | | | [address] | | | | | | [phone] | | | +--------+ + + + [...] this encounter Miscellaneous Notes Telephone Encounter - Julianna Dumont Cert MA - 02/08/2016 12:43 PM PDTI called and left a Bree Wilhelm for Kay in HR at patients employer requesting a call back. Letter generated. Patient updated. Called and spoke with Vinita Bennett (per patient recommendation) and got a good fax number for Bhumi. The letter was faxed today. JULIANNA DUMONT elephone Alex Diego PA - 02/08/2016 12:29 PM PDTSounds like the patient and her employer are in agreement. If she is at high risk of falling she is indeed a liability for the emplo gina as well as further injuring herself. Wide we go ahead and provide a letter keeping her off work until March 10. elephone Patel - Julianna Dumont Cert MA - 02/08/2016 11:56 AM PDTI spoke with Ana and she is okay with us speaking to her employer. She does confirm that the symptoms descri bed below are accurate and present currently. She is concerned about returning to work and doesn't feel ready. She says she has not done PT yet and was told by her employer that she is a "liability" returning in the condition that she is in. She would like to do PT and see Dr. Blevins at her next visit before returning to work. She started PT yesterday. She will need a letter stating that she is not able to return to work at this time until she see's Andrey Blevins on 03/10/16. Please advise. JULIANNA DUMONT elephone Alex Diego PA - 02/07/2016 6:14 PM PDTI'm not certain whether this is tied to a labor and industry claim or not. If this is not tied to a labor and industry claim I'm not even certain that we should be talking to the employer. How does the patient feel about th is? If so, that would change how we deal with this situation. Please get this information for me. In general, it would probably be good for the patient to be at work. However, as t he employer I would encourage employee to do work at shoulder height or below. I would enco urage her to work slowly and maybe start with a half day for a week or 2 and see how she acharya s. The patient needs to be encouraged to communicate to her employer how she is doing and i f the patient feels she is unsafe she needs to be able to communicate this to the employer w ithout fear of repercussions. elephone Encounter - Julianna Dumont Cert MA - 02/04/2016 1:30 PM PDTI got a call today from Ana' employer to day with concerns regarding her return to work letter. She states that Ana was in speaking with them when she gave them the letter and was C/O Numbness in feet, legs and hands. She s tated that she was often unsteady on her feet. She tends to get dizzy when she turns to zuleyma ckly and C/O not being able to sit or stand for any length of time. The note we gave her re leases her back to regular duties with some lifting restrictions. Her employer is greatly c oncerned with her returning under these circumstances. Patient is S/P C3-7 ACDF on 10/23/15 . Next visit is on 03/10/16. Please advise. 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 P: [phone]: Kay Smart () Electronically signed by Carlee Le MA at 1:36 PM PDTdocumented in this encounter Plan of Treatment +--------+---------+ + + + | Date | Type | Specialty | Care Team | Description | +--------+---------+ + + + | 06/04/ | Office | Sleep Medicine | David Henriquez PA | | | 2020 | Visit | | [address] | | | | | | [place] | | | | | | [address] | | | | | | | | +--------+---------+ + + + documented as of this encounter Visit Diagnoses Not on filedocumented in this encounter
--- OUTSIDE RECORDS SUMMARY | ~2020-03-15 | XMS | Encounter Summary ---
Demographics + + + | Address | [address] | | | [place] [address] | + + + | Home Phone | | + + + | Preferred Language | Unknown | + + + | Marital Status | | + + + | Mu-Ism Affiliation | Unknown | + + + | Race | Unknown | + + + | Ethnic Group | Unknown | + + + Author + + + | Author | [facility] | | | and Scout | + + + | Organization | [facility] | | | and [place] | + + + | Address | Unknown | + + + | Phone | Unavailable | + + + Support + + + + + | Name | Relationship | Address | Phone | + + + + + | Kendall MUNSON | [address] | | | | | [place] [address] | | + + + + + Care Team Providers + +------+ + | Care Software Engineer Backend Name | Role | Phone | + +------+ + | Rex Umanzor MD | PCP | | + +------+ + Reason for Visit Evaluate & Treat (Routine) +--------+ + + + + + | Status | Reason | Specialty | Diagnoses / | Referred By | Referred To | | | | | Procedures | Contact | Contact | +--------+ + + + + + | Closed | Specialty | Sleep | Diagnoses | Rudolph | [facility] | | | Services | Medicine | PRISCILLA | Warner Balderas | Leander [address] | | | Required | | (obstructive | MD Jov[address] | | | | | sleep | [place] | [place], | | | | | apnea) | [address] [place] | [place] [address] | | | | | Procedures | [place], [place] | Phone: | | | | | ID SLEEP | [id number] | [phone] | | | | | STUDY, | Phone: | Fax: | | | | | UNATTENDED, | [phone] | [phone] | | | | | SIMUL RECORD | Fax: | | | | | | HR/O2 | [phone] | | | | | | SAT/RESP | | | | | | | FLOW/RESP | | | | | | | EFF HST | | | +--------+ + + + + + Encounter Details +--------+ + + + + | Date | Type | Department | Care Team | Description | +--------+ + + + + | 11/04/ | Hospital | [facility] | Warner Galdamez | PRISCILLA (obstructive | | 2017 - | Encounter | MED CTR SLEEP | MD Jovanna [address] [place] [address] | sleep apnea) | | | | CENTER [address] | [address] [place] | (Primary Dx) | | 11/05/ | | [place] | [place] [address] | | | 2016 | | [address] | [phone] | | | | | [phone] | | | +--------+ + + + [...] at Time of Discharge + + + +---------+--------+ + | Medication | Sig | Dispensed | Refills | Start | End Date | | | | | | Date | | + + + +---------+--------+ + | DULoxetine | Take 40 mg by mouth | | 0 | | | | (IRENKA) [address] | Daily. | | | | | | capsule | | | | | | + + + +---------+--------+ + | gabapentin | Take 900 mg by mouth | | 0 | | | | (NEURONTIN) 300 mg | 3 times daily. | | | | 9 | | capsule | | | | | | + + + +---------+--------+ + | | Take 1 tablet by | | 0 | | | | losartan-hydrochloro | mouth Daily. | | | | 9 | | thiazide (HYZAAR) | | | | | | | 100-25 MG per tablet | | | | | | + + + +---------+--------+ + | Multiple | Take 1 tablet by | | 0 | | | | Vitamins-Minerals | mouth Daily. | | | | 9 | | (WOMENS MULTIVITAMIN | | | | | | | PLUS PO) | | | | | | + + + +---------+--------+ + | simvastatin | Take 20 mg by mouth | | 0 | | | | (ZOCOR) 40 mg tablet | nightly. | | | | 9 | + + + +---------+--------+ + documented as of this encounter Procedure Notes Warner Galdamez Jr., MD - 11/06/2016 4:45 PM PDTAssociated Order(s): SLEEP STUDY HOME SLE EP TESTProcedure(s): [place] [id number] HOME SLEEP TEST-TYPE 3Pre-Procedure Diagnose(s): PRISCILLA (obstr uctive sleep apnea)Post-Procedure Diagnose(s): PRISCILLA (obstructive sleep apnea) [facility] [place] [address] Unattended, Multiparameter, Sleep Apnea Test for Ana Wells performed on November 04, 2016. Identifying Information: Ana Wells is a 61 y.o. female who is referred for unatten ded, multi-parameter, sleep apnea test because of probable Obstructive Sleep Apnea. Technical Information: The study was performed on November 04, 2016 using the [employer] equipment with Polysmith Version 9 Software. The study was hand scored and hand analyzed. The following physiologic parameters were monitored: snoring, body position, oxygen saturat ion, heart rate, nasal airflow (PTAF), oral airflow (thermister) and thoracic and abdominal effort (RIP belts). EEG was not monitored and thus sleep staging was not performed. A sleep efficiency of 100% was assumed for the purposes of calculating indices; this assumption can result in a significant underestimation of disease severity. Because EEG was not monitored, Respiratory Effort Related Arousals could not be enumerated; this can also result in underes timation of disease severity. The sensitivity for Obstructive Sleep Apnea of this type of st udy is high but the specificity is low. Definitions (The AASM Manual for the Scoring of Sleep and Associated Events, Version 2.3; 2 016): Apnea: There is a drop in the peak signal excursion by 90% or greater of pre-event baselin e using an oronasal thermal sensor, or an alternative apnea sensor and the duration of the 9 0% or greater drop in sensor signal is greater than or equal to 10 seconds. Obstructive Apnea: Event associated with continued or increased inspiratory effort throug hout the entire period of absent airflow. Central Apnea: Event associated with absent inspiratory effort throughout the entire bethany od of absent airflow. Because EEG is not monitored, Central Apneas cannot be scored with any degree of reliability on this type of sleep study. Mixed Apnea: Event associated with absent inspiratory effort in the initial portion of th e event followed by resumption of inspiratory effort during the second portion of the event. Because EEG is not monitored, mixed apneas are not reliably scored on this type of study. Respiratory Event: The peak signal excursions drom by greater than or equal to 30% of pre- event baseline using a recommended or alternative airflow sensor and the duration of the >= 30% drop in signal excursion is greater than or equal to 10 seconds and there is a greater t alexander or equal to a 3% oxygen desaturation from pre-event baseline. Respiratory Event Related Arousal: Because EEG is not recorded, Respiratory Event Related Arousal's cannot be enumerated. DAVIE (Respiratory Event Index): Apneas plus Respiratory Events divided by Monitoring Time. Results: Data collection commenced at 2115 hundred hours on November 04, 2016 and data collect ion terminated at 0631 hundred hours on November 05, 2016. During the 555.5 minutes monitoring time there were 366 obstructive apneas, 0 central apneas, 0 mixed apneas and 271 respiratory events. The DAVIE was severely elevated at 68.8. The events were more frequent in the supine position (supine DAVIE 103.9, nonsupine DAVIE 64.6). The respiratory events occasioned a tram o xygen saturation of 84 % and the patient spent 91.1 minutes with an oxygen saturation of les s than 90%. The heart rate averaged in the 70's. Interpretation: This unattended, multiparameter, sleep apnea test is abnormal because of th e following: Severe obstructive sleep apnea is diagnosed. This is associated with significant and susta ined oxygen desaturation. Suggestions: Treatment of Obstructive Sleep Apnea is strongly advised. Warner Galdamez Jr., MD, [facility] Forger Helper Tasha Davis [facility] [place] Clinical hr advisor [place], [place] docum ented in this encounter Plan of Treatment +--------+---------+ + + + | Date | Type | Specialty | Care Team | Description | +--------+---------+ + + + | 06/04/ | Office | Sleep Medicine | David Henriquez PA | | | 2019 | Visit | | [address] [facility] | | | | | | [place] | | | | | | [phone] | | | | | | | | +--------+---------+ + + + documented as of this encounter Procedures + +--------+ + + + | Procedure Name | Priori | Date/Time | Associated Diagnosis | Comments | | | ty | | | | + +--------+ + + + | SLEEP STUDY HOME | Routin | 11/06/2016 | | Results for this | | SLEEP TEST | e | 4:47 PM | | procedure are in the | | | | PDT | | results section. | + +--------+ + + + documented in this encounter Results Sleep study home sleep test (11/06/2016 4:47 PM PDT) + + + | Narrative | Performed At | + + + | Warner Balderas | | | Rudolph Nugent MD 11/06/2016 16:47 [facility] | | | [place] [address] | | | Unattended, Multiparameter, Sleep Apnea Test for Ana Wells | | | performed on November 04, 2016. Identifying Information: Ana Leary | | | Priscilla is a 61 y.o. female who is referred for unattended, | | | multi-parameter, sleep apnea test because of probable Obstructive | | | Sleep Apnea. Technical Information: The study was performed on October | | | 2016 using the [employer] equipment with Polysmit[employer]i Version | | | 9 Software. The study was hand scored and hand analyzed. The | | | following physiologic parameters were monitored: snoring, body | | | position, oxygen saturation, heart rate, nasal airflow (PTAF), oral | | | airflow (thermister) and thoracic and abdominal effort (RIP belts). | | | EEG was not monitored and thus sleep staging was not performed. A | | | sleep efficiency of 100% was assumed for the purposes of calculating | | | indices; this assumption can result in a significant underestimation | | | of disease severity. Because EEG was not monitored, Respiratory Effort | | | Related Arousals could not be enumerated; this can also result in | | | underestimation of disease severity. The sensitivity for Obstructive | | | Sleep Apnea of this type of study is high but the specificity is low. | | | Definitions (The AASM Manual for the Scoring of Sleep and Associated | | | Events, Version 2.3; 2016): Apnea: There is a drop in the peak signal | | | excursion by 90% or greater of pre-event baseline using an oronasal | | | thermal sensor, or an alternative apnea sensor and the duration of the | | | 90% or greater drop in sensor signal is greater than or equal to 10 | | | seconds. Obstructive Apnea: Event associated with continued or | | | increased inspiratory effort throughout the entire period of absent | | | airflow. Central Apnea: Event associated with absent inspiratory | | | effort throughout the entire period of absent airflow. Because EEG is | | | not monitored, Central Apneas cannot be scored with any degree of | | | reliability on this type of sleep study. Mixed Apnea: Event | | | associated with absent inspiratory effort in the initial portion of | | | the event followed by resumption of inspiratory effort during the | | | second portion of the event. Because EEG is not monitored, mixed | | | apneas are not reliably scored on this type of study. Respiratory | | | Event: The peak signal excursions drom by greater than or equal to 30% | | | of pre-event baseline using a recommended or alternative airflow | | | sensor and the duration of the >= 30% drop in signal excursion is | | | greater than or equal to 10 seconds and there is a greater than or | | | equal to a 3% oxygen desaturation from pre-event baseline. Respiratory | | | Event Related Arousal: Because EEG is not recorded, Respiratory Event | | | Related Arousal's cannot be enumerated. DAVIE (Respiratory Event | | | Index): Apneas plus Respiratory Events divided by Monitoring Time. | | | Results: Data collection commenced at 2115 hundred hours on November 04 | | | 2016 and data collection terminated at 0631 hundred hours on November 05 | | | 2016. During the 555.5 minutes monitoring time there were 366 | | | obstructive apneas, 0 central apneas, 0 mixed apneas and 271 | | | respiratory events. The DAVIE was severely elevated at 68.8. The events | | | were more frequent in the supine position (supine DAVIE 103.9, nonsupine | | | DAVIE 64.6). The respiratory events occasioned a tram oxygen | | | saturation of 84 % and the patient spent 91.1 minutes with an oxygen | | | saturation of less than 90%. The heart rate averaged in the 70's. | | | Interpretation: This unattended, multiparameter, sleep apnea test is | | | abnormal because of the following: Severe obstructive sleep apnea is | | | diagnosed. This is associated with significant and sustained oxygen | | | desaturation. Suggestions: Treatment of Obstructive Sleep Apnea is | | | strongly advised. Warner Galdamez Jr., MD, [facility] | [facility] | | | [place], [place] Cytotechnologist of | | | [place], [place] | | |Results: Data collection commenced at 2115 hundred hours on October | | |2016 and data collection terminated at 0631 hundred hours on | | |November 05, 2016. During the 555.5 minutes monitoring time there | | |were 366 obstructive apneas, 0 central apneas, 0 mixed apneas and | | |271 respiratory events. The DAVIE was severely elevated at 68.8. | | |The events were more frequent in the supine position (supine DAVIE | | |103.9, nonsupine DAVIE 64.6). The respiratory events occasioned a | | |tram oxygen saturation of 84 % and the patient spent 91.1 | | |minutes with an oxygen saturation of less than 90%. The heart | | |rate averaged in the 70's. | | | | | |Interpretation: This unattended, multiparameter, sleep apnea test | | |is abnormal because of the following: | | |Severe obstructive sleep apnea is diagnosed. This is associated | | |with significant and sustained oxygen desaturation. | | | | | |Suggestions: | | |Treatment of Obstructive Sleep Apnea is strongly advised. | | | | | |Warner Galdamez Jr., MD, [facility] | | |Forger Helper | | |[facility] | | |[facility] | | |[place], [place] | | |Clinical hr advisor | | |[facility] | | |[place], [place] | | + + + documented in this encounter Visit Diagnoses + + | Diagnosis | + + | PRISCILLA (obstructive sleep apnea) - Primary Obstructive sleep apnea (adult) (pediatric) | + + documented in this encounter"
--- OUTSIDE RECORDS SUMMARY | ~2020-03-15 | XMS | Encounter Summary ---
Demographics + + + | Address | [address] | | | [place] [address] | + + + | Home Phone | | + + + | Preferred Language | Unknown | + + + | Marital Status | | + + + | Quaker Affiliation | Unknown | + + + | Race | Unknown | + + + | Ethnic Group | Unknown | + + + Author + + + | Author | [facility] | | | and Scout | + + + | Organization | [facility] | | | and [place] | + + + | Address | Unknown | + + + | Phone | Unavailable | + + + Support + + + + + | Name | Relationship | Address | Phone | + + + + + | Kendall MUNSON | [address] | | | | | [place] [address] | | + + + + + Care Team Providers + +------+ + | Care Machine Attendant Name | Role | Phone | + +------+ + | Don Morin MD | PCP | | + +------+ + Encounter Details +--------+ + + + + | Date | Type | Department | Care Team | Description | +--------+ + + + + | 10/16/ | Hospital | [facility] | Jayme Blevins, | | | 2016 | Encounter | MED CTR LABORATORY | DO [address] | | | | | [address] | [address] [place] | | | | | [place] | [address] | | | | | [address] | | | | | | [phone] | | | +--------+ + + + [...] [place] | | | | | | [address] | | | | | | | | +--------+---------+ + + + documented as of this encounter Visit Diagnoses Not on filedocumented in this encounter"
--- OUTSIDE RECORDS SUMMARY | ~2020-03-15 | XMS | Encounter Summary ---
Demographics + + + | Address | [address] | | | [place] [address] | + + + | Home Phone | | + + + | Preferred Language | Unknown | + + + | Marital Status | | + + + | Pentecostalism Affiliation | Unknown | + + + | Race | Unknown | + + + | Ethnic Group | Unknown | + + + Author + + + | Author | [facility] | | | and Scout | + + + | Organization | [facility] | | | and [place] | + + + | Address | Unknown | + + + | Phone | Unavailable | + + + Support + + + + + | Name | Relationship | Address | Phone | + + + + + | Kendall MUNSON | [address] | | | | | [place] [address] | | + + + + + Care Team Providers + +------+ + | Care Asbestos Removal Worker Name | Role | Phone | + +------+ + | Rex Umanzor MD | PCP | | + +------+ + Reason for Visit +--------+--------+ + | Reason | Onset | Comments | | | Date | | +--------+--------+ + | Other | 10/16/ | | | | 2016 | | +--------+--------+ + Encounter Details +--------+ + + + + | Date | Type | Department | Care Team | Description | +--------+ + + + + | 10/16/ | Telephone | [facility] [place] | Jayme Blevins, | Other | | 2015 | | NEUROSURGERY [address] | DO [address] | | | | | [address] | [address] [place], [place] | | | | | [place], [place] | [address] | | | | | [address] | | | | | | [phone] | | | +--------+ + + + [...] this encounter Miscellaneous Notes Telephone Encounter - Justyn Pacheco - 10/17/2015 1:20 PM PSTJeremy from patients PCP pratik moore in today to give clearance for surgery. Please call them back if we need anything else [phone] signed by Justyn Pacehco at 10/17/2015 1:21 PM PSTdocumented in this encounter Plan of Treatment +--------+---------+ + + + | Date | Type | Specialty | Care Team | Description | +--------+---------+ + + + | 06/04/ | Office | Sleep Medicine | David Henriquez PA | | | 2020 | Visit | | [address] | | | | | | [place] | | | | | | [address] | | | | | | | | +--------+---------+ + + + documented as of this encounter Visit Diagnoses Not on filedocumented in this encounter"
--- OUTSIDE RECORDS SUMMARY | ~2020-03-15 | XMS | Encounter Summary ---
Demographics + + + | Address | [address] | | | [place] [address] | + + + | Home Phone | | + + + | Preferred Language | Unknown | + + + | Marital Status | | + + + | Cheondoism Affiliation | Unknown | + + + | Race | Unknown | + + + | Ethnic Group | Unknown | + + + Author + + + | Author | [facility] | | | and Scout | + + + | Organization | [facility] | | | and [place] | + + + | Address | Unknown | + + + | Phone | Unavailable | + + + Support + + + + + | Name | Relationship | Address | Phone | + + + + + | Kendall MUNSON | [address] | | | | | [place] [address] | | + + + + + Care Team Providers + +------+ + | Care Manager Talent Acquisition Name | Role | Phone | + +------+ + | Don Morin MD | PCP | | + +------+ + Encounter Details +--------+ + + + + | Date | Type | Department | Care Team | Description | +--------+ + + + + | 01/28/ | [facility] | [facility] | Jyame Blevins, | S/P cervical spinal | | 2016 | Encounter | MED CTR XRAY [address] | DO [address] | fusion | | | | [address] | [place] [address] [place] | | | | | [place] [address] | [address] | | | | | [phone] | | | +--------+ + + + [...] (VALIUM) | Take 1 tablet by | 60 | 0 | 01/29/20 | | | 5 mg tablet | [...] | | Take 1-2 tablets by | 90 | 0 | 01/29/20 | | | HYDROcodone-acetamin | mouth every [...] 2019 | Visit | | [address] | | | | | | [place] | | | | | | [address] | | | | | | | | +--------+---------+ + + + documented as of this encounter Procedures + +--------+ + + + | Procedure Name | Priori | Date/Time | Associated Diagnosis | Comments | | | ty | | | | + +--------+ + + + | XR CERVICAL SPINE 2 | Routin | 01/29/2016 | S/P cervical | Results for this | | OR 3 VIEWS | e | 2:42 PM | spinal fusion | procedure are in the | | [...] + + | Performing | Address | City/State[facility] | Phone Number | | Organization | | | | + + + + + | [facility] | [address] | [place], [place] | [phone] | | [facility] | | [address] | | | - IMAGING | | | | + + + + + documented in this encounter Visit Diagnoses + + | Diagnosis | + + | S/P cervical spinal fusion Arthrodesis status | + + documented in this encounter"
--- OUTSIDE RECORDS SUMMARY | ~2020-03-15 | XMS | Encounter Summary ---
Demographics + + + | Address | [address] | | | [place] [address] | + + + | Home Phone | | + + + | Preferred Language | Unknown | + + + | Marital Status | | + + + | Druze Affiliation | Unknown | + + + | Race | Unknown | + + + | Ethnic Group | Unknown | + + + Author + + + | Author | [facility] | | | and Scout | + + + | Organization | [facility] | | | and [place] | + + + | Address | Unknown | + + + | Phone | Unavailable | + + + Support + + + + + | Name | Relationship | Address | Phone | + + + + + | Kendall MUNSON | [address] | | | | | [place] [address] | | + + + + + Care Team Providers + +------+ + | Care Strike Off Machine Operator Name | Role | Phone | [...] Description | +--------+---------+ + + + | 03/30/ | Office | [facility] | David Henriquez PA | PRISCILLA on CPAP (Primary | | 2018 | Visit | SLEEP DISORDER [address] | [address] | Dx) | | | | [address] [place] | [place] | | | | | [place] [address] | [address] | | | | | [phone] | | | +--------+---------+ + + + [...] + + + | Blood Pressure | 126/68 | 03/30/2018 2:10 PM | | | | | PDT | | + + + + + | Pulse | 81 | 03/30/2018 2:10 PM | | | | | PDT | | + + + + + | Temperature | - | - | | + + + + + | Respiratory Rate | 16 | 03/30/2018 2:10 PM | | | | | PDT | | + + + + + | Oxygen Saturation | 98% | 03/30/2018 2:10 PM | | | | | PDT | | + + + + + | Inhaled Oxygen | - | - | | | Concentration | | | | + + + + + | Weight | 88.1 kg (194 lb 3.6 | 03/30/2018 2:10 PM | | | | oz) | PDT | | + + + + + | Height | - | - | | + + + + + | Body Mass Index | 35.52 | 04/08/2017 1:59 PM | | | | | PDT [...] documented as of this encounter Progress Notes Malinda Soto, Research Aide - 03/30/2018 2:30 PM PDTFormatting of this note might b e different from the original. 03/30/18 1400 Padron Depression Inventory-II Depression Score 2 - Minimal depression Insomnia Severity Index Insomnia Severity Index 2 [place] Sleepiness Scale Sitting and reading 1 Watching TV 0 Sitting, inactive in a public place (e.g. a theatre or a meeting) 0 As a passenger in a car for an hour without a break 2 Lying down to rest in the afternoon when circumstances permit 0 Sitting and talking to someone 0 Sitting quietly after a lunch without alcohol 0 In a car, while stopped for a few minutes in traffic 0 Total score 3 SF-36v2 Score PF 49.89 RP 30.21 BP 38.21 GH 55.56 VT 55.57 SF 52.33 RE 45.72 MH 48.25 PCS 42 MCS 52.76 oram, [place] Cullen - 2:30 PM PDT Subjective: Patient ID: Ana Wells is a 62 y.o. female. HPI last office visit: 03/23/2017 date of HST: 11/04/2016 AHI: 68.8 RDI: O2%: 84% with 91.1 minutes below 90% Machine type: ResMed AirSense 10 Mask type: full face mask DME: [facility] [place] pressure: 4-20 cm Median: 10.2 cm 95%: 12.1 cm maximum: 13.4 cm Nights using CPAP: 341/365 % of nights >4 hours: 89% average usage (all nights): 7:02 average usage (nights used): 7:33 AHI: 1.3 Ana comes in for CPAP compliance. She continues to do well with her CPAP, wearing it regu larly for the duration of her sleep. Her CPAP has become a regular part of her sleep routin e. She does not consider sleeping without it. The only times she sleeps without it are whe n she travels. She says she has started to take it with her because she doesn't sleep well without it. She does not have any questions or concerns. I have discussed the download and results of the paperwork in detail. The download shows t hat her sleep apnea is controlled, with an AHI of 1.3. It also shows that her leaks are con trolled. She is changing her insurance to Medicare in the next month. She understands that she will need BP 126/68 | Pulse 81 | Resp 16 | Wt 88.1 kg (194 lb 3.6 oz) | SpO2 98% | BMI 35.52 kg/ m Review of Systems Objective: Physical Exam Assessment: Problem #1: OBSTRUCTIVE SLEEP APNEA ([id number]-D41.33) This is controlled with CPAP. She is doing well with her CPAP compliance. Plan: 1. She is to continue with CPAP indefinitely. 2. Touch base with medical supplier twice per year to ensure that all equipment is satisfa ctory. I will follow up again in 2 months, sooner prn. At that time we will reassess with all lam ropriate paperwork. Fifteen minutes were spent [id number], with the majority of time spen t [...] 2019 | Visit | | [address] | | | | | | [place] | | | | | | [address] | | | | | | | | +--------+---------+ + + + documented as of this encounter Visit Diagnoses + + | Diagnosis | + + | PRISCILLA on CPAP - Primary Obstructive sleep apnea (adult) (pediatric) | + + documented in this encounter"
--- OUTSIDE RECORDS SUMMARY | ~2020-03-15 | XMS | Encounter Summary ---
Demographics + + + | Address | [address] | | | [place] [address] | + + + | Home Phone | | + + + | Preferred Language | Unknown | + + + | Marital Status | | + + + | Sabianist Affiliation | Unknown | + + + | Race | Unknown | + + + | Ethnic Group | Unknown | + + + Author + + + | Author | [facility] | | | and Scout | + + + | Organization | [facility] | | | and [place] | + + + | Address | Unknown | + + + | Phone | Unavailable | + + + Support + + + + + | Name | Relationship | Address | Phone | + + + + + | Kendall MUNSON | [address] | | | | | [place] [address] | | + + + + + Care Team Providers + +------+ + | Care Ham Facer Name | Role | Phone | + +------+ + | Don Morin MD | PCP | | + +------+ + Reason for Visit +--------+--------+ + | Reason | Onset | Comments | | | Date | | +--------+--------+ + | Other | 11/04/ | Ashleigh protocol | | | 2016 | | +--------+--------+ + Encounter Details +--------+ + + + + | Date | Type | Department | Care Team | Description | +--------+ + + + + | 11/04/ | Telephone | [facility] | Jayme Blevins, | Other (Brace | | 2016 | | NEUROSURGERY [address] | DO [address] | protocol) | | | | [address] | [address] [place], [place] | | | | | [place], [place] | [address] | | | | | [address] | | | | | | [phone] | | | +--------+ + + + [...] Encounter - Julianna Dumont Cert MA - 11/05/2015 3:49 PM PDTI returned Ana' call . She asked how often she was to be wearing her brace. She is a B brace and should wear wh en out of bed. I explained this to her. I also let her know that she should not drive whil e taking her pain medication or muscle relaxers. JULIANNA DUMONT HUTeDivya Franco - 11/05/2015 11:48 AM PDTPatient called to discuss brace protocol and wo huy like to discuss when she can begin driving again. documented in this encounter Plan of Treatment [...]
--- OUTSIDE RECORDS SUMMARY | ~2020-03-15 | XMS | Encounter Summary ---
Demographics + + + | Address | [address] | | | [place] [address] | + + + | Home Phone | | + + + | Preferred Language | Unknown | + + + | Marital Status | | + + + | Hinduism Affiliation | Unknown | + + + | Race | Unknown | + + + | Ethnic Group | Unknown | + + + Author + + + | Author | [facility] | | | and Scout | + + + | Organization | [facility] | | | and [place] | + + + | Address | Unknown | + + + | Phone | Unavailable | + + + Support + + + + + | Name | Relationship | Address | Phone | + + + + + | Kendall MUNSON | [address] | | | | | [place] [address] | | + + + + + Care Team Providers + +------+ + | Care Post Adoption Coordinator Name | Role | Phone | + [...] Description | +--------+---------+ + + + | 06/02/ | Office | [facility] | David Henriquez PA | PRISCILLA on CPAP (Primary | | 2018 | Visit | SLEEP DISORDER [address] | [address] | Dx) | | | | [address] [place] | [place] | | | | | [place] [address] | [address] | | | | | [phone] | | | +--------+---------+ + + + [...] + + + | Blood Pressure | 140/80 | 06/02/2018 1:36 PM | | | | | PDT | | + + + + + | Pulse | 82 | 06/02/2018 1:36 PM | | | | | PDT | | + + + + + | Temperature | - | - | | + + + + + | Respiratory Rate | 16 | 06/02/2018 1:36 PM | | | | | PDT | | + + + + + | Oxygen Saturation | 98% | 06/02/2018 1:36 PM | | | | | PDT | | + + + + + | Inhaled Oxygen | - | - | | | Concentration | | | | + + + + + | Weight | 87.5 kg (192 lb 14.4 | 06/02/2018 1:36 PM | | | | oz) | PDT | | + + + + + | Height | - | - | | + + + + + | Body Mass Index | 35.28 | 04/08/2017 1:59 PM | | | [...] encounter Progress Notes David Henriquez PA - 06/02/2018 1:30 PM PDT Subjective: Patient ID: Ana Wells is a 62 y.o. female. HPI last office visit: 03/30/2018 date of HST: 11/04/2016 AHI: 68.8 RDI: O2%: 84% with 91.1 minutes below 90% Machine type: ResMed AirSense 10 Mask type: full face mask DME: [facility] [place] pressure: 4-20 cm Median: 10.4 cm 95%: 12.7 cm maximum: 14.4 cm Nights using CPAP: 61/64 % of nights >4 hours: 84% average usage (all nights): 6:49 average usage (nights used): 7:09 AHI: 1.6 Ana comes in for CPAP compliance. She [...] she doesn't sleep well without it. She recently changed her insurance to Medicare which required a [id number] vi sit for her to get replacement supplies. I have discussed the download and results of the paperwork in detail. The download shows t hat her sleep apnea is controlled, with an AHI of 1.6. It also shows that her leaks are con trolled. BP 140/80 | Pulse 82 | Resp 16 | Wt 87.5 kg (192 lb 14.4 oz) | SpO2 98% | BMI 35.28 kg /m Review of Systems Objective: Physical Exam Assessment: Problem #1: OBSTRUCTIVE SLEEP APNEA ([id number]-I50.33) This is controlled with CPAP. She is doing well with her CPAP compliance. Plan: 1. She is to continue with CPAP indefinitely. 2. We have faxed a prescription to [facility] [place] for replacement supplies. 3. Touch base with medical supplier twice per year to ensure that all equipment is satisfa ctory. I will follow up again in 1 year, sooner prn. At that time we will reassess with all appro priate paperwork. Fifteen minutes were spent [id number], with the majority of time spent in [...] Go | | | | | | [place] | | | | | | [address] | | | | | | | | +--------+---------+ + + + documented as of this encounter Visit Diagnoses + + | Diagnosis | + + | PRISCILLA on CPAP - Primary Obstructive sleep apnea (adult) (pediatric) | + + documented in this encounter"
--- OUTSIDE RECORDS SUMMARY | ~2020-03-15 | XMS | Encounter Summary ---
Demographics + + + | Address | [address] | | | [place] [address] | + + + | Home Phone | | + + + | Preferred Language | Unknown | + + + | Marital Status | | + + + | Hinduism Affiliation | Unknown | + + + | Race | Unknown | + + + | Ethnic Group | Unknown | + + + Author + + + | Author | [facility] | | | and Scout | + + + | Organization | [facility] | | | and [place] | + + + | Address | Unknown | + + + | Phone | Unavailable | + + + Support + + + + + | Name | Relationship | Address | Phone | + + + + + | Kendall MUNSON | [address] | | | | | [place] [address] | | + + + + + Care Team Providers + +------+ + | Care Funeral Arrangement Director Name | Role | Phone | + +------+ + | Don Morin MD | PCP | | + +------+ + Encounter Details +--------+ + + + + | Date | Type | Department | Care Team | Description | +--------+ + + + + | 10/17/ | Orders Only | [facility] | Jayme Blevins, | Disease of spinal | | 2016 | | NEUROSURGERY [address] | DO [address] | cord (HCC) (Primary | | | | [address] | [address] [place] | Dx); Status post | | | | [place] | [address] | cervical spinal | | | | [address] | | fusion | | | | [phone] | | | +--------+ + + + [...] 2020 | Visit | | [address] | | | | | | [place] | | | | | | [address] | | | | | | | [...] the cervical spine. Anterior compression plate | [facility] | | and screws extending from C3 [...] + | Anthony, Rad Results In - 12/04/2015 3:26 PM PDT [...] ST[address] | [address] | [place] | [phone] | | [facility] | | [address] | | | - IMAGING | | | | + + + + + documented in this encounter Visit Diagnoses + + | Diagnosis | + + | Disease of spinal cord (HCC) - Primary Unspecified disease of spinal cord | + + | Status post cervical spinal fusion Arthrodesis status | + + documented in this encounter"
--- OUTSIDE RECORDS SUMMARY | ~2020-03-15 | XMS | Encounter Summary ---
Demographics + + + | Address | [address] | | | [place] [address] | + + + | Home Phone | | + + + | Preferred Language | Unknown | + + + | Marital Status | | + + + | Hoahaoism Affiliation | Unknown | + + + | Race | Unknown | + + + | Ethnic Group | Unknown | + + + Author + + + | Author | [facility] | | | and Scout | + + + | Organization | [facility] | | | and [place] | + + + | Address | Unknown | + + + | Phone | Unavailable | + + + Support + + + + + | Name | Relationship | Address | Phone | + + + + + | Kendall MUNSON | [address] | | | | | [place] [address] | | + + + + + Care Team Providers + +------+ + | Care Pan Greaser Name | Role | Phone | + +------+ + | Don Morin MD | PCP | | + +------+ + Encounter Details +--------+ + + + + | Date | Type | Department | Care Team | Description | +--------+ + + + + | 10/16/ | Orders Only | [facility] | Jayme Blevins, | High cholesterol | | 2016 | | NEUROSURGERY [address] | DO [address] | (Primary Dx); | | | | [address] | [address] | Essential | | | | [place], [place] | [address] | hypertension; | | | | [address] | | Neuropathy; History | | | | [phone] | | of tobacco use | +--------+ + + + + Social [...] 2020 | Visit | | [address] | | | | | | [place] | | | | | | [address] | | | | | | | | +--------+---------+ + + + documented as of this encounter Results XR Chest PA and Lateral (10/17/2015 1:05 PM PST) + + | Specimen | + + | | + + + + + | Narrative | Performed At | + + + | XR CHEST PA AND LATERAL 10/17/2015 1:05 PM HISTORY: PRE OPERATIVE | [facility] | | EXAM. COMPARISON: None. Findings: Heart size is within normal | [facility] | | limits. There is atherosclerosis of the aorta. Mediastinum is | [facility] | | unremarkable. Central pulmonary vasculature is normal. The bilateral | - IMAGING | | lungs are clear with no evidence for pleural effusion or pneumothorax. | | | Mild spondylosis is seen. IMPRESSION - No acute findings. | | | Dictated and Signed by: Олег Jacobo MD Electronically signed: | | | 10/17/2015 1:40 PM | | + + + + + | Procedure Note | + + | Anthony, Rad Results In - 10/17/2015 1:43 PM PST XR CHEST PA AND LATERAL 10/17/2015 1:05 | | PMHISTORY: PRE OPERATIVE EXAM.COMPARISON: None.Findings:Heart size is within normal | | limits. There is atherosclerosis of the aorta.Mediastinum is unremarkable. Central | | pulmonary vasculature is normal. Thebilateral lungs are clear with no evidence for | | pleural effusion or pneumothorax.Mild spondylosis is seen.IMPRESSION -No acute | | findings.Dictated and Signed by: Олег Jacobo MD Electronically signed: 10/17/2015 1:40 | | PM | |Heart size is within normal limits. There is atherosclerosis of the aorta. | |Mediastinum is unremarkable. Central pulmonary vasculature is normal. The | |bilateral lungs are clear with no evidence for pleural effusion or pneumothorax. | |Mild spondylosis is seen. | | | |IMPRESSION - | |No acute findings. | | | |Dictated and Signed by: Олег Jacobo MD | | Electronically signed: 10/17/2015 1:40 PM | + + + + + + + | Performing | Address | City/State/Zipcode | Phone Number | | Organization | | | | + + + + + | [facility] | [address] | [place] | [phone] | | [facility] | | [address] | | | - IMAGING | | | | + + + + + Basic Metabolic Panel (10/17/2015 12:45 PM PST) + + + + + + | Component | Value | Ref Range | Performed | Pathologist | | | | | At | Signature | + + + + + + | Na | 131 (L) | 136 - 149 | [facility] | | | | | mmol/L | [facility] | | | | | | MEDICAL | | | | | | CENTER - | | | | | | LABORATORY | | + + + + + + | K | 3.2 (L) | 3.5 - 5.1 | [facility] | | | | | mmol/L | [facility] | | | | | | MEDICAL | | | | | | CENTER - | | | | | | LABORATORY | | + + + + + + | Cl | 97 (L) | 98 - 109 mmol/L | [facility] | | | | | | [facility] | | | | | | MEDICAL | | | | | | CENTER - | | | | | | LABORATORY | | + + + + + + | CO2 | 26 | 24 - 31 mmol/L | [facility] | | | | | | [facility] | | | | | | MEDICAL | | | | | | CENTER - | | | | | | LABORATORY | | + + + + + + | Anion Gap | 8 | 3 - 16 mmol/L | [facility] | | | | | | [facility] | | | | | | MEDICAL | | | | | | CENTER - | | | | | | LABORATORY | | + + + + + + | Glucose | 76 | 70 - 109 mg/dL | [facility] | | | | | | [facility] | | | | | | MEDICAL | | | | | | CENTER - | | | | | | LABORATORY | | + + + + + + | BUN | 12 | 7 - 18 mg/dL | [facility] | | | | | | [facility] | | | | | | MEDICAL | | | | | | CENTER - | | | | | | LABORATORY | | + + + + + + | Creatinine | 0.76 | 0.60 - 1.30 | [facility] | | | | | mg/dL | [facility] | | | | | | MEDICAL | | | | | | CENTER - | | | | | | LABORATORY | | + + + + + + | eGFR, | >60Comment: GLOMERULAR | >=60 | [facility] | | | non- | FILTRATION | mL/min/1.73m2 | [facility] | | | [place] | RATE,ESTIMATED | | MEDICAL | | | | mL/min/1.85n9Wqeo than | | CENTER - | | | | 60 Chronic kidney | | LABORATORY | | | | disease,if found over a | | | | | | 3-month period.Less than | | | | | | 15 Kidney failureFor | | | | | | | | | | | | Americans,multiply the | | | | | | calculated GFR by 1.21. | | | | | | | | | | + + + + + + | Calcium | 9.6 | 8.3 - 10.5 | [facility] | | | | | mg/dL | [facility] | | | | | | MEDICAL | | | | | | CENTER - | | | | | | LABORATORY | | + + + + + + | BUN/Creatin | 15.8 | | [facility] | | | ine Ratio | | | [facility] | | | | | | MEDICAL | | | | | | CENTER - | | | | | | LABORATORY | | + + + + + + + + | Specimen | + + | Blood | + + + + + + + | Performing | Address | City/State/Zipcode | Phone Number | | Organization | | | | + + + + + | [facility] | [address] | [place] | [phone] | | [facility] | | [address] | | | - LABORATORY | | | | + + + + + PTT (10/17/2015 12:45 PM PST) + +-------+ + + + | Component | Value | Ref Range | Performed | Pathologist | | | | | At | Signature | + +-------+ + + + | aPTT | 27 | 22 - 36 seconds | [facility] | | | | | | [facility] | | | | | | MEDICAL | | | | | | CENTER - | | | | | | LABORATORY | | + +-------+ + + + + + | Specimen | + + | Blood | + + + + + + + | Performing | Address | City/State/Zipcode | Phone Number | | Organization | | | | + + + + + | [facility] | [address] | [place] | [phone] | | [facility] | | [address] | | | - LABORATORY | | | | + + + + + Protime INR (10/17/2015 12:45 PM PST) + + + + + + | Component | Value | Ref Range | Performed | Pathologist | | | | | At | Signature | + + + + + + | Prothrombin | 12.5 | 11.3 - 13.9 | [facility] | | | Time | | seconds | [facility] | | | | | | MEDICAL | | | | | | CENTER - | | | | | | LABORATORY | | + + + + + + | INR | 0.89 (L)Comment: Usual | 0.90 - 1.10 | [facility] | | | | Oral Anticoagulation | | [facility] | | | | Range: 2.0 - | | MEDICAL | | | | 3.0High Level Oral | | CENTER - | | | | Anticoagulation Range: | | LABORATORY | | | | 2.5 - 3.5 | | | | + + + + + + + + | Specimen | + + | Blood | + + + + + + + | Performing | Address | City/State/Zipcode | Phone Number | | Organization | | | | + + + + + | [facility] | [address] | [place] | [phone] | | [facility] | | [address] | | | - LABORATORY | | | | + + + + + CBC with Differential (10/17/2015 12:45 PM PST) + +-------+ + + + | Component | Value | Ref Range | Performed | Pathologist | | | | | At | Signature | + +-------+ + + + | White Blood | 8.7 | 4.0 - 11.0 K/uL | [facility] | | | Cells | | | [facility] | | | | | | MEDICAL | | | | | | CENTER - | | | | | | LABORATORY | | + +-------+ + + + | Red Blood | 3.95 | 3.70 - 5.20 | [facility] | | | Cells | | M/uL | [facility] | | | | | | MEDICAL | | | | | | CENTER - | | | | | | LABORATORY | | + +-------+ + + + | Hemoglobin | 13.4 | 11.5 - 16.0 | [facility] | | | | | g/dL | [facility] | | | | | | MEDICAL | | | | | | CENTER - | | | | | | LABORATORY | | + +-------+ + + + | Hematocrit | 38.1 | 34.0 - 47.0 % | [facility] | | | | | | [facility] | | | | | | MEDICAL | | | | | | CENTER - | | | | | | LABORATORY | | + +-------+ + + + | MCV | 96.6 | 83.0 - 101.0 fL | [facility] | | | | | | [facility] | | | | | | MEDICAL | | | | | | CENTER - | | | | | | LABORATORY | | + +-------+ + + + | MCH | 33.9 | 28.0 - 35.0 pg | [facility] | | | | | | [facility] | | | | | | MEDICAL | | | | | | CENTER - | | | | | | LABORATORY | | + +-------+ + + + | MCHC | 35.1 | 32.0 - 36.0 | [facility] | | | | | g/dL | [facility] | | | | | | MEDICAL | | | | | | CENTER - | | | | | | LABORATORY | | + +-------+ + + + | RDW-CV | 12.1 | <15.0 % | [facility] | | | | | | [facility] | | | | | | MEDICAL | | | | | | CENTER - | | | | | | LABORATORY | | + +-------+ + + + | Platelet | 263 | 140 - 440 K/uL | [facility] | | | Count | | | [facility] | | | | | | MEDICAL | | | | | | CENTER - | | | | | | LABORATORY | | + +-------+ + + + | MPV | 7.6 | fL | [facility] | | | | | | [facility] | | | | | | MEDICAL | | | | | | CENTER - | | | | | | LABORATORY | | + +-------+ + + + | % | 60.0 | 45.0 - 82.0 % | [facility] | | | Neutrophils | | | [facility] | | | | | | MEDICAL | | | | | | CENTER - | | | | | | LABORATORY | | + +-------+ + + + | % | 29.8 | 20.0 - 45.0 % | [facility] | | | Lymphocytes | | | [facility] | | | | | | MEDICAL | | | | | | CENTER - | | | | | | LABORATORY | | + +-------+ + + + | % Monocytes | 9.6 | 4.0 - 12.0 % | [facility] | | | | | | [facility] | | | | | | MEDICAL | | | | | | CENTER - | | | | | | LABORATORY | | + +-------+ + + + | % | 0.2 | 0.0 - 5.0 % | [facility] | | | Eosinophils | | | [facility] | | | | | | MEDICAL | | | | | | CENTER - | | | | | | LABORATORY | | + +-------+ + + + | % Basophils | 0.4 | 0.0 - 1.0 % | [facility] | | | | | | [facility] | | | | | | MEDICAL | | | | | | CENTER - | | | | | | LABORATORY | | + +-------+ + + + | Absolute | 5.20 | 1.80 - 8.50 | [facility] | | | Neutrophils | | K/uL | [facility] | | | | | | MEDICAL | | | | | | CENTER - | | | | | | LABORATORY | | + +-------+ + + + | Absolute | 2.60 | 0.60 - 3.20 | [facility] | | | Lymphocytes | | K/uL | [facility] | | | | | | MEDICAL | | | | | | CENTER - | | | | | | LABORATORY | | + +-------+ + + + | Absolute | 0.80 | 0.00 - 1.00 | [facility] | | | Monocytes | | K/uL | [facility] | | | | | | MEDICAL | | | | | | CENTER - | | | | | | LABORATORY | | + +-------+ + + + | Absolute | 0.00 | 0.00 - 0.40 | [facility] | | | Eosinophils | | K/uL | [facility] | | | | | | MEDICAL | | | | | | CENTER - | | | | | | LABORATORY | | + +-------+ + + + | Absolute | 0.00 | 0.00 - 0.10 | [facility] | | | Basophils | | K/uL | [facility] | | | | | | MEDICAL | | | | | | CENTER - | | | | | | LABORATORY | | + +-------+ + + + + + | Specimen | + + | Blood | + + + + + + + | Performing | Address | City/State/Zipcode | Phone Number | | Organization | | | | + + + + + | [facility] | [address] | [place] | [phone] | | [facility] | | [address] | | | - LABORATORY | | | | + + + + + ECG 12 lead (10/17/2015 12:41 PM PST) + + + + + + | Component | Value | Ref Range | Performed | Pathologist | | | | | At | Signature | + + + + + + | VENTRICULAR | 63 | BPM | [facility] | | | RATE EKG | | | | | + + + + + + | ATRIAL RATE | 63 | BPM | [facility] | | + + + + + + | P-R | 152 | ms | [facility] | | | INTERVAL | | | | | + + + + + + | QRS | 90 | ms | [facility] | | | DURATION | | | | | + + + + + + | Q-T | 426 | ms | [facility] | | | INTERVAL | | | | | + + + + + + | Q-T | 435 | ms | [facility] | | | INTERVAL | | | | | | (CORRECTED) | | | | | + + + + + + | P WAVE AXIS | 63 | degrees | [facility] | | + + + + + + | QRS AXIS | 56 | degrees | [facility] | | + + + + + + | T AXIS | 52 | degrees | [facility] | | + + + + + + | INTERPRETAT | Normal sinus | | [facility] | | | ION TEXT | rhythmNormal ECGNo | | | | | | previous ECGs | | | | | | availableConfirmed by | | | | | | THERESA ANDRE MD | | | | | | ([id number]) on 10/17/2015 | | | | | | 6:45:34 PM | | | | + + + + + + + + | Specimen | + + | | + + + + + | Narrative | Performed At | + + + | | | + + + + +---------+ + + | Performing | Address | City/State/Zipcode | Phone Number | | Organization | | | | + +---------+ + + | [facility] | | | | + +---------+ + + documented in this encounter Visit Diagnoses + + | Diagnosis | + + | High cholesterol - Primary Pure hypercholesterolemia | + + | Essential hypertension Unspecified essential hypertension | + + | Neuropathy Mononeuritis of unspecified site | + + | History of tobacco use Personal history of tobacco use, presenting hazards to health | + + documented in this encounter"
--- OUTSIDE RECORDS SUMMARY | ~2020-03-15 | XMS | Encounter Summary ---
Demographics + + + | Address | [address] | | | [place] [address] | + + + | Home Phone | | + + + | Preferred Language | Unknown | + + + | Marital Status | | + + + | Latter-Day Affiliation | Unknown | + + + | Race | Unknown | + + + | Ethnic Group | Unknown | + + + Author + + + | Author | [facility] | | | and Scout | + + + | Organization | [facility] | | | and [place] | + + + | Address | Unknown | + + + | Phone | Unavailable | + + + Support + + + + + | Name | Relationship | Address | Phone | + + + + + | Kendall MUNSON | [address] | | | | | [place] [address] | | + + + + + Care Team Providers + +------+ + | Care Access Service Representative Name | Role | Phone | + [...] | | | | | | | ([facility]) | | | | | | | Procedures | | | | | | | [place] | | | | | | | [...] + + + + | 10/22/ | Anesthesia | [facility] | David Pacheco MD | | | 2015 | Event | [facility] | [address] | | | | | [address] | [place] | | | | | [place] | [address] | | | | | [address] | | | | | | [phone] | Evens Hirsch | | | | | | MD Loreta [address] | | | | | | [address] [place] | | | | | | [address] | | | | | | | | | | | | | | +--------+ + + + + Anesthesia Record + + + + + | Procedure Name | Responsible | Anesthesia Start | Anesthesia Stop Time | | | Anesthesiologist | Time | | + + + + + | C3-4, C4-5, C5-6, | David Pacheco MD | 10/23/15 1001 | 10/23/15 1253 | | C6-7 Anterior | | | | | Cervical Discectomy | | | | | w/ Fusion and | | | | | Plating (N/A Neck) | | | | + + + + + +----+---+ + + | Da | T | Event | Comment | | te | i | | | | | m | | | | | e | | | +----+---+ + + | 03 | 0 | | | | /1 | 9 | | | | 5/ | 5 | | | | 20 | 7 | | | | 16 | | | | +----+---+ + + | | 1 | An Checkout | Pre-use anesthesia machine/equipment checkout. | | | 0 | | | | | 0 | | | | | 1 | | | +----+---+ + + | | 1 | An Start | Reassessment prior to anesthesia induction/procedure. | | | 0 | | | | | 0 | | | | | 1 | | | +----+---+ + + | | 1 | Antibiotic | | | | 0 | Given | | | | 0 | | | | | 1 | | | +----+---+ + + | | 1 | Preoxygenat | | | | 0 | ed | | | | 0 | | | | | 4 | | | +----+---+ + + | | 1 | An | | | | 0 | Induction | | | | 0 | | | | | 6 | | | +----+---+ + + | | 1 | An | | | | 0 | Intubation | | | | 1 | | | | | 1 | | | +----+---+ + + | | 1 | Sontag | | | | 0 | 43-degrees | | | | 2 | | | | | 5 | | | +----+---+ + + | | 1 | First | | | | 0 | Inc/Proc St | | | | 2 | | | | | 5 | | | +----+---+ + + | | 1 | Breathing | | | | 2 | Spontaneous | | | | 2 | ly | | | | 8 | | | +----+---+ + + | | 1 | Sontag off | | | | 2 | | | | | 4 | | | | | 7 | | | +----+---+ + + | | 1 | Breathing | | | | 2 | Spontaneous | | | | 4 | ly | | | | 7 | | | +----+---+ + + | | 1 | Oropharynx | | | | 2 | Suctioned | | | | 4 | | | | | 7 | | | +----+---+ + + | | 1 | Moving | | | | 2 | Purposefull | | | | 4 | y | | | | 7 | | | +----+---+ + + | | 1 | Extubated | | | | 2 | Awake | | | | 4 | | | | | 7 | | | +----+---+ + + | | 1 | an stop | | | | 2 | data | | | | 4 | | | | | 7 | | | +----+---+ + + | | 1 | An Stop | Patient handed off to recovery nurse. | | | 5 | | | | | 3 | | | +----+---+ + + +------+ | Meds | +------+ + +---------+ | Name | Total | + +---------+ | lidocaine 2% | 40 mg | + +---------+ | propofol | 300 mg | + +---------+ | ondansetron | 4 mg | + +---------+ | dexamethasone | 10 mg | + +---------+ | fentaNYL | 100 mcg | + +---------+ | HYDROmorphone | 2 mg | + +---------+ | cisatracurium | 10 mg | + +---------+ | neostigmine | 1 mg | + +---------+ | glycopyrrolate | 0.2 mg | + +---------+ | ceFAZolin in dextrose (ANCEF) | 2 g | | IVPB 2 g | | + +---------+ | ePHEDrine | 30 mg | + +---------+ | midazolam | 2 mg | + +---------+ | sodium chloride 0.9% (NS) | 700 mL | | infusion | | + +---------+ + + | Name | + + | N2O Flow Rate (L/Min) | + + | O2 Flow Rate (L/Min) | + + | Insp O2 | + + | Exp MARTINEZ | + + | Air Flow Rate (L/Min) | + + + + | No blood administrations on file. | + + +--------+ + + + | Type | Details | Placement | Removal | +--------+ + + + | Periph | 10/23/15; 0942; [id number] | 10/23/15 0942 by | 10/24/15 1120 by | | eral | catheter system; 20 gauge, 1 08/13 | Radha Zepeda, | Guido Giron, | | IV | in length; Blood Bank; | RN | RN | | | intradermal injection, tolerated | | | | | well; short term use; 10/24/15; | | | | | 1120 | | | +--------+ + + + | Airway | Placement Date: 10/23/15; | 10/23/15 1011 by | 10/23/15 1247 by | | | Placement Time: 1011; Mask | David Pacheco MD | David Pacheco MD | | | Ventilation: EZ w/OA; Airway | | | | | Grade: 1; External Maneuvers: CP; | | | | | Successful Technique: video | | | | | scope; Laryngoscope Blade Size: | | | | | 3; Attempts: 1; Airway Type: | | | | | endotracheal, cuffed, oral; Size: | | | | | 6.5; Airway Tube Secured At: 20; | | | | | Tube Reference Point: lip; | | | | | Placement Check: exhaled CO2 | | | | | detection device; Removal Date: | | | | | 10/23/15; Removal Time: 1247 | | | +--------+ + + + | Read | 10/23/15; 1120; Right; neck; | 10/23/15 1120 by | 10/24/15 1121 by | | only - | healing within expectations; | Don Gilbert RN | Guido Giron, | | | 10/24/15; 1121 | | RN | | Incisi | | | | | on | | | | +--------+ + + + | Drain/ | 10/23/15; 1211; #1; Right; | 10/23/15 1211 by | 10/24/15 0950 by | | Device | anterior; neck; collapsible | Don Gilbert RN | Guido Giron, | | Site | closed device; 10 fr round drain; | | RN | | | short term use; 10/24/15; 0950 | | | +--------+ + + + documented in this encounter Social History + + + +--------+ + [...] + + documented as of this encounter OR Notes Anesthesia Postprocedure Evaluation - David Pacheco MD - 10/23/2015 12:54 PM PDT ANESTHESIA POSTANESTHESIA EVALUATION nAa Wells 60 y.o. female 1955 [id number] Procedure(s) C3-4, C4-5, C5-6, C6-7 Anterior Cervical Discectomy w/ Fusion and Plating (N/ A Neck) Filed Vitals: 10/23/15 0915 10/23/15 1252 BP: 125/68 129/70 Pulse: 60 68 Temp: 36.6 C (97.9 F) 36.2 C (97.2 F) Resp: 16 12 SpO2: 99% 93% Cooperates? Yes Mental Status Performs simple tasks. Respiratory Satisfactory - Airway patent (self maintained). Cardiovascular Satisfactory Blood pressure and heart rate acceptable Temperature Satisfactory Pain Satisfactory N/V Control Satisfactory Hydration Satisfactory No signs of dehydration Complications None apparent Electronically signed by David Pacheco MD 10/23/2015 12:54 [facility] nesthesia Preprocedure Evaluation - David Pacheco MD - 10/23/2015 9:51 AM PDTFormatting of this note might be di fferent from the original. ANESTHESIA PREANESTHESIA EVALUATION Ana Wells 60 y.o. female 1955 [id number] Procedure(s): C3-4, C4-5, C5-6, C6-7 Anterior Cervical Discectomy w/ Fusion and Plating (N/ A Neck) Medical history, anesthesia, medications, allergy, NPO status verified histories reviewed. ECG reviewed. Labs reviewed. Review of Systems / Med History Anesthesia History (+) PONV Cardiovascular (+) hypertension(-) angina , Exercise tolerance >4 METS Pulmonary (+) smoking history(+) sleep apnea: known Endocrine (+) obesity: BMI (30-39) Physical Exam Airway MP II, TM >3 FB, Mouth opening >2 FB. Neck: full ROM, extends >30 degrees. Jaw protrus ion normal. Dental ; (+) dentures-lower. CV Rhythm regular. Rate normal. (-) murmur. Pulm Clear to auscultation bilaterally. Neuro Grossly normal. Anesthesia Plan ASA 2 Type: General. Induction: Intravenous. Potential problems: None anticipated. Monitors: Standard ASA monitors. Consent statement: Risks discussed included (but were not limited to): nausea, pain, sore throat, . Consenting person understands and agrees to proceed. Electronically Signed by: David Pacheco MD ESig date/time: 10/23/2015 9:51 documented in this enco unter Plan of [...] Diagnoses Not on filedocumented in this encounter Administered Medications + +--------+ +------+------+------+ | Medication Order | MAR | Action | Dose | Rate | Site | | | Action | Date | | | | + +--------+ +------+------+------+ | ceFAZolin in dextrose (ANCEF) | Given | 10/23/19 | 2 g | | | | IVPB 2 g 2 g, Intravenous, | | 16 10:00 | | | | | Administer over 30 Minutes, Prior | | AM PDT | | | | | to Incision, Starting Tue | | | | | | | 10/23/15 at 0924, For 1 dose, | | | | | | | Administer within 1 hour of | | | | | | | surgical incision., Pre-op | | | | | | + +--------+ +------+------+------+ +---+---+ | | | +---+---+ + +-------+ +-------+---+---+ | cisatracurium (NIMBEX) | Given | 10/23/19 | 10 mg | | | | injection Intravenous, PRN, | | 16 10:06 | | | | | Ventilator Dyssynchrony, Starting | | AM PDT | | | | | 10/23/15 at 1006, Anesthesia | | | | | | | Intra-op | | | | | | + +-------+ +-------+---+---+ +---+---+ | | | +---+---+ + +-------+ +-------+---+---+ | dexamethasone (DECADRON) 10 | Given | 10/23/19 | 10 mg | | | | mg/mL injection Intravenous, | | 16 10:30 | | | | | PRN, Starting e 10/23/15 at | | AM PDT | | | | | 1030, Anesthesia Intra-op | | | | | | + +-------+ +-------+---+---+ +---+---+ | | | +---+---+ + +-------+ +-------+---+---+ | ePHEDrine 50 mg/mL injection | Given | 10/23/19 | 15 mg | | | | PRN, Starting 3/15/16 at | | 16 10:29 | | | | | 1019, Anesthesia Intra-op | | AM PDT | | | | + +-------+ +-------+---+---+ +-------+ +-------+---+---+ | Given | 10/23/19 | 15 mg | | | | | 16 10:19 | | | | | | AM PDT | | | | +-------+ +-------+---+---+ +---+---+ | | | +---+---+ + +-------+ +---------+---+---+ | fentaNYL injection | Given | 10/23/19 | 100 mcg | | | | Intravenous, PRN, Pain, Starting | | 16 10:02 | | | | | 10/23/15 at 1002, Anesthesia | | AM PDT | | | | | Intra-op | | | | | | + +-------+ +---------+---+---+ +---+---+ | | | +---+---+ + +-------+ +--------+---+---+ | glycopyrrolate (ROBINUL) | Given | 10/23/19 | 0.2 mg | | | | injection Intravenous, PRN, | | 16 12:37 | | | | | Secretions, Starting 10/23/15 | | PM PDT | | | | | at 1237, Anesthesia Intra-op | | | | | | + +-------+ +--------+---+---+ +---+---+ | | | +---+---+ + +-------+ +------+---+---+ | HYDROmorphone (DILAUDID) 2 | Given | 10/23/19 | 1 mg | | | | mg/mL injection Intravenous, | | 16 12:30 | | | | | PRN, Pain, Starting 10/23/15 | | PM PDT | | | | | at 1054, Anesthesia Intra-op | | | | | | + +-------+ +------+---+---+ +-------+ +------+---+---+ | Given | 10/23/19 | 1 mg | | | | | 16 10:54 | | | | | | AM PDT | | | | +-------+ +------+---+---+ +---+---+ | | | +---+---+ + +-------+ +-------+---+---+ | lidocaine (PF) 2% injection | Given | 10/23/19 | 40 mg | | | | Intravenous, PRN, Starting Tue | | 16 10:06 | | | | | 10/23/15 at 1006, Anesthesia | | AM PDT | | | | | Intra-op | | | | | | + +-------+ +-------+---+---+ +---+---+ | | | +---+---+ + +-------+ +------+---+---+ | midazolam (VERSED) 1 mg/mL | Given | 10/23/19 | 2 mg | | | | injection Intravenous, PRN, | | 16 10:00 | | | | | Anxiety, Starting 10/23/15 at | | AM PDT | | | | | 1000, Anesthesia Intra-op | | | | | | + +-------+ +------+---+---+ +---+---+ | | | +---+---+ + +-------+ +------+---+---+ | neostigmine (PROSTIGMIN) 1 | Given | 10/23/19 | 1 mg | | | | mg/mL injection Intravenous, | | 16 12:37 | | | | | PRN, Starting 10/23/15 at | | PM PDT | | | | | 1237, Anesthesia Intra-op | | | | | | + +-------+ +------+---+---+ +---+---+ | | | +---+---+ + +-------+ +------+---+---+ | ondansetron (ZOFRAN) injection | Given | 10/23/19 | 4 mg | | | | Intravenous, PRN, Nausea, | | 16 10:30 | | | | | Vomiting, Starting 10/23/15 at | | AM PDT | | | | | 1030, Anesthesia Intra-op | | | | | | + +-------+ +------+---+---+ +---+---+ | | | +---+---+ + +-------+ +--------+---+---+ | propofol (DIPRIVAN) injection | Given | 10/23/19 | 300 mg | | | | Intravenous, PRN, Starting Tue | | 16 10:06 | | | | | 10/23/15 at 1006, Anesthesia | | AM PDT | | | | | Intra-op | | | | | | + +-------+ +--------+---+---+ +---+---+ | | | +---+---+ + +---------+ [...] +---------+ +--------+-------+---+ +---+---+ | | | +---+---+ documented in this encounter"
--- OUTSIDE RECORDS SUMMARY | ~2020-03-15 | XMS | Encounter Summary ---
Demographics + + + | Address | [address] | | | [place] [address] | + + + | Home Phone [...] + | Author | [facility] | | | and Scout | + + + | Organization | [facility] | | | and [place] | + + + | Address | Unknown | + + + | Phone | Unavailable | + + + Support + + + + + | Name | Relationship | Address | Phone | + + + + + | Kendall MUNSON | [address] | | | | | [place] [address] | | + + + + + Care Team Providers + +------+ + | Care Ladies Suit Operator Name | Role | Phone | + +------+ + | Don Morin MD | PCP | | + +------+ + Reason for Visit +--------+--------+ + | Reason | Onset | Comments | | | Date | | +--------+--------+ + | Pain | 01/03/ | | | | 2015 | | +--------+--------+ + Encounter Details +--------+ + + + + | Date | Type | Department | Care Team | Description | +--------+ + + + + | 01/03/ | Telephone | [facility] [place] | Jayme Blevins, | Pain | | 2016 | | NEUROSURGERY [address] | DO [address] | | | | | [address] | [address] [place], [place] | | | | | [place], [place] | [address] | | | | | [address] | | | | | | [phone] | | | +--------+ + + + [...] | + +---+---+---+ + + | 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 elephone Encounter - Alex Sandra PA - 016 3:03 PM PDTYes she can do this. Cold wet washcloth with work as well.Electronically si gned by ORLANDO Lao at 01/14/2016 3:03 PM PDTTelephone Encounter - Rosie Bowen RN - 01/14/2016 2:55 PM PDTCalled Ana and advised her per Alex Sandra PA-C, she verb alized understanding. Ana would like to know if she can use "cold packs" under her cervical collar because of th e heat. She described the cold pack as round cold beads that wraps around her neck (gel pack beads). Please Advise Further. elephone Encounter - Alex Sandra PA - 01/14/2016 2:38 PM PDTMedrol Dosep ak is ordered. eleph one Encounter - Julianna Dumont Cert MA - 01/11/2016 9:44 AM PDTI spoke with Ana. She would be interested in trying the Medrol Dospak. She is already taking Gabapentin 600mg three ti mes a day. She would like to hold off on a visit at this time as she does have one schedule d in a few weeks. Please see attached medication and sign. Thank you, JULIANNA DUMONT elephone Encounte r - Alex Sandra PA - 01/10/2016 6:39 PM PDTI agree with your phone assessment and re commendations. If patient feels that she is currently suffering from significant symptoms I be happy to see her in our office. Also, if she calls again, with her surgery being fairly recently I would be happy to call in a Medrol Dosepak for her and/or start Neurontin. This can also be helpful if she is having significant extremity pain. elephone Encounter - Rosie Bowen RN - 12:12 PM PDTPost-op patient: Yes". Type of Procedure: C3-7 Fusion Date of Procedure: 10/23/15 Next Office Visit: 01/28/16 Reason for call: Pain Type of pain: Constant when she lifts her right arm. She describes the pain as a stabbing and achy pain. Location of Pain: Neck pain that radiates into her right shoulder when she bends her elbow . Pain Level: 7/10 New Pain: Yes. When did pain start to increase or change: One month ago Worse with activity: Yes. Sudden onset of Lower or Upper extremity weakness: No. Denies sudden onset of numbness. Sh e stated that the numbness she had prior to surgery in her hands is not gone but better. Current intake of pain medication/or muscle relaxants: Hydrocodone & Valium She states that she has had to do a lot of travelling in the past month due to family emerg encies. She was advised to take it easy, stay on top of her pain and call us with worsening symptoms. She was advised to seek immediate medical attention with worsening symptoms, she v erbalized understanding. Please advise further. elephone Encounter - Divya Andrews - 01/04/2016 10:29 AM PDTPatient called with complaint of an increase in p ain. She states the pain goes from her neck down to her right shoulder. She is not able to l ift her right arm very high without causing more pain. Next appt with Dr. Blevins 01/28/16. Pl moriah call. documented in t his encounter Plan of Treatment +--------+---------+ + + + | Date | Type | Specialty | Care Team | Description | +--------+---------+ + + + | 06/04/ | Office | Sleep Medicine | David Henriquez PA | | | 2019 | Visit | | [address] | | | | | | [place] | | | | | | [phone] | | | | | | | | +--------+---------+ + + + documented as of this encounter Visit Diagnoses Not on filedocumented in this encounter
--- OUTSIDE RECORDS SUMMARY | ~2020-03-15 | XMS | Encounter Summary ---
Demographics + + + | Address | [address] | | | [place] [address] | + + + | Home Phone | | + + + | Preferred Language | Unknown | + + + | Marital Status | | + + + | Mormon Affiliation | Unknown | + + + | Race | Unknown | + + + | Ethnic Group | Unknown | + + + Author + + + | Author | [facility] | | | and Scout | + + + | Organization | [facility] | | | and [place] | + + + | Address | Unknown | + + + | Phone | Unavailable | + + + Support + + + + + | Name | Relationship | Address | Phone | + + + + + | Kendall MUNSON | [address] | | | | | [place] [address] | | + + + + + Care Team Providers + +------+ + | Care Forensic Structural Engineer Name | Role | Phone | + +------+ + PCP | Unavailable | + +------+ + Encounter Details +--------+ + + + + | Date | Type | Department | Care Team | Description | +--------+ + + + + | 12/03/ | Hospital | [facility] | | | | 2003 | Encounter | [facility] | | | | | | CENTER [address] | | | | | | [place] | | | | | | [address] | | | | | | [phone] | | | +--------+ + + + + Social History + +-------+ +--------+------+ | Tobacco Use | Types | Packs/Day | Years | Date | | | | | Used | | + +-------+ +--------+------+ | Never Assessed | | | | | + +-------+ +--------+------+ + + + | Sex Assigned at [...] [place] | | | | | | [address] | | | | | | | | +--------+---------+ + + + documented as of this encounter Visit Diagnoses Not on filedocumented in this encounter"
--- OUTSIDE RECORDS SUMMARY | ~2020-03-15 | XMS | Encounter Summary ---
Demographics + + + | Address | [address] | | | [place] [address] | + + + | Home Phone | | + + + | Preferred Language | Unknown | + + + | Marital Status | | + + + | Temple Affiliation | Unknown | + + + | Race | Unknown | + + + | Ethnic Group | Unknown | + + + Author + + + | Author | [facility] | | | and Scout | + + + | Organization | [facility] | | | and [place] | + + + | Address | Unknown | + + + | Phone | Unavailable | + + + Support + + + + + | Name | Relationship | Address | Phone | + + + + + | Kendall MUNSON | [address] | | | | | [place] [address] | | + + + + + Care Team Providers + +------+ + | Care Sewing Room Supervisor Name | Role | Phone | + +------+ + | Don Morin MD | PCP | | + +------+ + Reason for Referral Evaluate & Treat (Routine) +--------+ + + + + + | Status | Reason | Specialty | Diagnoses / | Referred By | Referred To | | | | | Procedures | Contact | Contact | +--------+ + + + + + | Closed | Specialty | Physical | Diagnoses | [facility], | | | | Services | Therapy | Cervical | Alex Massey, | | | | Required | | myelopathy | PA-C [address] | | | | | | ([facility]) | [address] | | | | | | Cervicalgia | [address] | | | | | | Kyphosis of | [place], | | | | | | cervical | [place] [address] | | | | | | region, | Phone: | | | | | | unspecified | [phone] | | | | | | kyphosis | Fax: | | | | | | type | [phone] | | | | | | Cervical | | | | | | | stenosis of | | | | | | | spinal canal | | | | | | | Cervical | | | | | | | radicular | | | | | | | pain Status | | | | | | | post | | | | | | | cervical | | | | | | | spinal | | | | | | | fusion | | | | | | | Procedures | | | | | | | [facility] | | | | | | | THERAPY | | | | | | | EVALUATION | | | +--------+ + + + + + Reason for Visit + + + | Reason | Comments | + + + | Follow-up | 3m PO | + + + Encounter Details +--------+---------+ + + + | Date | Type | Department | Care Team | Description | +--------+---------+ + + + | 01/28/ | Office | [facility] | Alex Sandra, | Cervical myelopathy | | 2015 | Visit | NEUROSURGERY [address] | PA-C [address] | ([facility]) (Primary Dx); | | | | [address] | [address] [place] | Cervicalgia; | | | | [place], [place] | [place] [address] | Kyphosis of cervical | | | | [address] | [phone] | region, unspecified | | | | [phone] | | kyphosis type; | | | | | | Cervical stenosis of | | | | | | spinal canal; | | | | | | Cervical radicular | | | | | | pain; Status post | | | | | | cervical spinal | | | | | | fusion | +--------+---------+ + + + Social History [...] + + + | Blood Pressure | 129/80 | 01/29/2016 3:51 PM | | | | | PDT | | + + + + + | Pulse | 75 | 01/29/2016 3:51 PM | | | | | PDT | | + + + + + | Temperature | - | - | | + + + + + | Respiratory Rate | 18 | 01/29/2016 3:51 PM | | | | | PDT | | + + + + + | Oxygen Saturation | - | - | | + + + + + | Inhaled Oxygen | - | - | | | Concentration | | | | + + + + + | Weight | 77.1 kg (170 lb) | 01/29/2016 3:51 PM | | | | | PDT | | + + + + + | Height | 157.5 cm (5' 2") | 01/29/2016 3:51 PM | | | | | PDT | | + + + + + | Body Mass Index | 31.09 | 01/29/2016 3:51 PM | | | | | PDT [...] of this encounter Patient Instructions Patient Instructions Alex Sandra PA - 01/29/2016 4:53 PM PDTI'm going to order phys ical therapy for you. I'm also going to have you follow-up with Dr. Blevins in about 6 weeks . In the meantime, try to wean out of your collar. If you feel motivated, please discuss g oing back on Chantix with your primary care doctor and try to quit smoking. Lastly, if you' re neck begins to feel better, I'm fine with your lifting up to 20 pounds until the follow-u p with Dr. Blevins. However, until you see him, I would not lift more than that.Electronical ly signed by DANIEL Lao at 01/29/2016 4:57 PM PDT documented in this encounter Progress Notes Alex Sandra PA - 01/29/2016 4:52 PM PDTFormatting of this note might be different f rom the original. DANIEL Rivera [address] [facility], [address] [place] [address] FAX: NEUROSURGERY FOLLOW-UP CHIEF COMPLAINT: Chief Complaint Patient presents with Follow-up 3m PO HISTORY OF PRESENT ILLNESS: The patient is a 60 y.o. female that had a cervical fusion for neck and arm pain along with myelopathy around 3 months ago. She returns and overall is do ing Somewhat poorly. The patient complains of ongoing constant neck pain along with pain in her hands radiating into her fingers. Prior to surgery patient felt totally numb. Now, daniel diane has pain in the hands. Right hand is worse than the left hand. The patient has been walking as much as directed. She is still taking pain medications at this point. However, she predominantly takes pain medication at nighttime. Swallowing is close to or back to no rmal. The patient has had no issues with her surgical site. CURRENT MEDICATIONS: Current Outpatient Prescriptions Medication Sig Dispense Refill cyanocobalamin (VITAMIN B-12) 500 mcg tablet Take 500 mcg by mouth Daily. diazepam (VALIUM) 5 mg tablet Take 1 tablet by mouth every 6 hours as needed. 90 tablet 0 escitalopram (LEXAPRO) 10 mg tablet Take 10 mg by mouth Daily. gabapentin (NEURONTIN) 300 mg capsule Take 600 mg by mouth 3 times daily. HYDROcodone-acetaminophen (NORCO) 10-325 mg per tablet Take 1-2 tablets by mouth every 4 hours as needed for Pain. 120 tablet 0 losartan (COZAAR) 25 mg tablet Take 25 [...] has been smoking Cigarettes. She has a 2.8 pack-year smoking history. She has never used smokeless tobacco. She reports that she drinks about 0.6 oz of alcohol per week. She reports that she does not use illicit drugs. INTERIM PHYSICAL EXAMINATION: Blood pressure 129/80, pulse 75, resp. rate 18, height 1.575 m (5' 2"), weight 77.111 kg (1 70 lb), not currently . Body mass index is 31.09 kg/(m^2). GENERAL: Ana Wells is in no acute distress with unlabored respirations. SPINE: The patient s incision is well healed. EXTREMITIES: No lower extremity edema. NEUROLOGICAL EXAMINATION: MENTAL STATUS: The patient is awake, alert, and oriented. She follows simple and complex commands MOTOR EXAM: Motor strength is 4 to 4+. This is improved when compared to the preoperative exam. SENSORY EXAM: The sensory examination is improved when compared to the preoperative exam. RADIOGRAPHIC REVIEW: The patient s x-rays show stable instrumentation and alignment and were reviewed with the patient today. Increased bony fusion is noted but it is not complete. ASSESSMENT: Encounter Diagnoses Name Primary? Cervical myelopathy Yes Cervicalgia Kyphosis of cervical region, unspecified kyphosis type Cervical stenosis of spinal canal Cervical radicular pain Status post cervical spinal fusion Past Medical History Diagnosis Date High cholesterol Hypertension Neuropathy History of tobacco use PONV (postoperative nausea and vomiting) Wears dentures lower partial Sleep apnea no CPAP PLAN: Overall, the patient is doing somewhat poorly. . The patient can see some improvements but continues to recover from recent surgery. She is also concerned about ongoing symptoms in her right leg but does not want to consider surgery until her neck feels a little better. I increased the patient s activities and have now about her left up to 20 pounds. Sheree r, I have cautioned her against doing this quickly or aggressively. The patient and also wi ll begin the process of brace weaning. I would like the patient to advance slowly with this process and discussed this at length during today's visit. I would also like the patient t o continue with postoperative rehabilitation and to advance with therapy as tolerated. half-way pain medication should be continued and tapered by their primary care provider or pain management At today's visit I have encouraged her to try and wean out of her brace. I stressed the im portance of being able to do this and how continuing to wear it actually causes weakening of muscles and increased pain. I also ordered physical therapy for her. Patient will follow- up with Dr. Blevins in approximately 6-8 weeks for evaluation of her ongoing neck issues as w ell as discussing the current status of her back and right leg. ELECTRONICALLY SIGNED BY: DANIEL Rivera, 01/29/2016 16:53 documented in this encounter Plan of Treatment +--------+---------+ + + + | Date | Type | Specialty | Care Team | Description | +--------+---------+ + + + | 06/04/ | Office | Sleep Medicine | David Henriquez PA | | | 2020 | Visit | | [address] | | | | | | [place] | | | | | | [address] | | | | | | | | +--------+---------+ + + + + + +--------+ + + | Name | Type | Priori | Associated Diagnoses | Order Schedule | | | | ty | | | + + +--------+ + + | Ambulatory referral | Outpatient | Routin | Cervical | Ordered: 01/29/2016 | | to Physical Therapy | Referral | e | myelopathy | | | | | | Cervicalgia | | | | | | Kyphosis of cervical | | | | | | region, unspecified | | | | | | kyphosis type | | | | | | Cervical stenosis of | | | | | | spinal canal | | | | | | Cervical radicular | | | | | | pain Status post | | | | | | cervical spinal | | | | | | fusion | | + + +--------+ + + documented as of this encounter Visit Diagnoses + + | Diagnosis | + + | Cervical myelopathy (HCC) - Primary Cervical spondylosis with myelopathy | + + | Cervicalgia | + + | Kyphosis of cervical region, unspecified kyphosis type | + + | Cervical stenosis of spinal canal Spinal stenosis in cervical region | + + | Cervical radicular pain Brachial neuritis or radiculitis nos | + + | Status post cervical spinal fusion Arthrodesis status | + + documented in this encounter
--- OUTSIDE RECORDS SUMMARY | ~2020-03-15 | XMS | Encounter Summary ---
Demographics + + + | Address | [address] | | | [place] [address] | + + + | Home Phone | | + + + | Preferred Language | Unknown | + + + | Marital Status | | + + + | Anabaptism Affiliation | Unknown | + + + | Race | Unknown | + + + | Ethnic Group | Unknown | + + + Author + + + | Author | [facility] | | | and Scout | + + + | Organization | [facility] | | | and [place] | + + + | Address | Unknown | + + + | Phone | Unavailable | + + + Support + + + + + | Name | Relationship | Address | Phone | + + + + + | Kendall MUNSON | [address] | | | | | [place] [address] | | + + + + + Care Team Providers + +------+ + | Care Acrylic Fabricator Name | Role | Phone | + +------+ + | Don Morin MD | PCP | | + +------+ + Reason for Visit + + + | Reason | Comments | + + + | Back Injury | ED F/U | + + + Evaluate & Treat (Urgent) +--------+--------+ + + + + | Status | Reason | Specialty | Diagnoses / | Referred By | Referred To | | | | | Procedures | Contact | Contact | +--------+--------+ + + + + | Closed | | Neurosurgery | Diagnoses | Mikel, | Felicity, | | | | | Other | Don Courtney, | Jayme Keating DO | | | | | spondylosis | [address] | [address] | | | | | with | [address] | [address] | | | | | myelopathy, | [address] | [place] | | | | | cervical | [place] | [address] Phone: | | | | | region | [address] | [phone] | | | | | Incontinence | Phone: | Fax: | | | | | of bowel | [phone] | [phone] | | | | | Procedures | Fax: | | | | | | [place] OFFICE | [phone] | | | | | | CONSULTATION | | | | | | | NEW/ESTAB | | | | | | | PATIENT 60 | | | | | | | MIN [place] | | | | | | | OFFICE | | | | | | | OUTPATIENT | | | | | | | VISIT 25 | | | | | | | MINUTES [place] | | | | | | | OFFICE | | | | | | | OUTPATIENT | | | | | | | NEW 60 | | | | | | | MINUTES | | | +--------+--------+ + + + + Encounter Details +--------+---------+ + + + | Date | Type | Department | Care Team | Description | +--------+---------+ + + + | 10/16/ | Office | [facility] | Jayme Blevins, | Cervical myelopathy | | 2016 | Visit | NEUROSURGERY [address] | DO [address] | (Primary Dx); | | | | [address] | [address] [place], [place] | Kyphosis of cervical | | | | [place], [place] | [address] | region, unspecified | | | | [address] | | kyphosis type; | | | | [phone] | | Cervical stenosis of | | | | | | spinal canal; | | | | | | Cervical radicular | | | | | | pain; Cervicalgia; | | | | | | Gait instability | +--------+---------+ + + + Social History [...] + + + | Blood Pressure | 134/74 | 10/17/2015 10:29 AM | | | | | PST | | + + + + + | Pulse | 76 | 10/17/2015 10:29 AM | | | | | PST | | + + + + + | Temperature | - | - | | + + + + + | Respiratory Rate | 16 | 10/17/2015 10:29 AM | | | | | PST | | + + + + + | Oxygen Saturation | - | - | | + + + + + | Inhaled Oxygen | - | - | | | Concentration | | | | + + + + + | Weight | 83.9 kg (185 lb) | 10/17/2015 10:29 AM | | | | | PST | | + + + + + | Height | 157.5 cm (5' 2") | 10/17/2015 10:29 AM | | | | | PST | | + + + + + | Body Mass Index | 33.84 | 10/17/2015 10:29 AM | | | | | PST | | + + + + + documented in this encounter Patient Instructions Patient Instructions Jayme Blevins DO - 10/17/2015 11:11 AM PSTPlease follow-up with you r primary care physician for preoperative clearance. Please present for surgery when scheduled. documented in this encounter Progress Notes Jayme Blevins DO - 10/17/2015 11:11 AM PSTFormatting of this note might be different fro m the original. Jayme Blevins DO [address] [facility] [place], [place] [id number] FAX: NEUROSURGERY HISTORY AND PHYSICAL EXAMINATION CHIEF COMPLAINT: Chief Complaint Patient presents with Back Injury ED F/U HISTORY OF PRESENT ILLNESS: The patient is a 60 y.o. female with the complaint of neck twin n symptoms that began 5 months ago. The patient describes fighting with her daughter and tw isting her neck. The symptoms have been rapidly worsening. She rates the pain as moderate. The symptoms are frequent, daily, continuous. She describ es the pain as aching and stabbing. The patient describes arm symptoms down both sides. The arm symptoms account for at least greater than or equal to 75% of her symptoms. Her pain travels from her neck into her arms - she has bilateral arm numbness. She also describes having to hold onto the dominguez and coun ters as she walks. She does indicate a history of loss of fine motor function. Other findi ngs of progressive myelopathy are present. She has generalized [...] over the C-3, C-4, C-5, C-6 and C- 7 region. Range of motion is limited. Rotation and extension does cause symptoms to radiat e into the extremities on both sides. Flexion and extension of the neck does cause severe discomfort. No tenderness in the midline of the thoracic or lumbar spine. There is no major palpable d eformity of the spine. EXTREMITIES: No cyanosis, clubbing, or edema. Distal pulses are palpable. NEUROLOGICAL EXAM: MENTAL STATUS: The patient is awake, alert, and oriented. She follows simple and complex commands. Her speech is fluent, she comprehends speech well, and she repeats well. She has no apparent deficits with short or middle or intermediate school principal memory. CRANIAL NERVES: II: Acuity is intact. Johnson are full to confrontation. III, IV, : The pupils are reactive. Extraocular movements are intact. No ptosis is note d. V: Facial sensation is intact and symmetric. [...] Intrinsics 4- 4- Ulnar Intrinsics 4- 4- Tube Roller Strength 4- 4- Hip Flexion 4+ 4+ [...] the patient today during the visit. The MRI of the cervical spine from 10/11/15 demonstrates loss of cervical lordosis with kyphosis. There is stenosis C3-7 with deformation of the spinal cord at every level from C3-7, worse a t C4-5 with spinal cord signal change. Cervical [...] kyphosis and severe stenosis causing deformation of th e spinal cord and signal change C3-7. This is likely contributing to her neck pain, arm numb ness, arm weakness, and gait instability. I had a lengthy discussion with the patient about her options for care including surgical a nd non-surgical options. She would like to proceed with urgent ACDF C3-7. Given the severit y of her condition I will authorize this surgery urgently and plan to operate next week. We discussed the risks, alternatives, and benefits to surgical intervention with Ms. Eddi aranda in clinic. These risks included but were not limited to , stroke, heart attack, num bness, weakness, paralysis, failure of fusion, failure of hardware, subsidence, adjacent seg ment degeneration, cerebrospinal fluid leak, bleeding, infection, injury to surrounding tiss ues and organs, injury from positioning, injury to the nerves, difficulty with breathing, di fficulty with swallowing, difficulty with voice change, and [...] that although some patients may obtain 100% sym ptom relief, it is realistic to anticipate that some symptoms will continue postoperatively despite a successful surgery. We also discussed that there is no guarantee that surgery will provide improvement in her c ondition, and indeed may even worsen the symptoms. We also discussed that in the course of the procedure the operative plan may be altered to include more, less, or different levels d epending upon findings in order to provide her with the best possible outcome. For multiple (more than 1 level fusions), I recommend the use of a bone growth stimulator p ostoperatively. This is to improve the probability and rate of fusion. She will follow-up with her primary care provider for preoperative clearance and optimizati on prior to presenting for surgery. ELECTRONICALLY SIGNED BY: Jayme Blevins DO, 10/17/2015 11:18 documented in this en counter Plan of Treatment +--------+---------+ + + + | Date | Type | Specialty | Care Team | Description | +--------+---------+ + + + | 06/04/ | Office | Sleep Medicine | David Henriquez PA | | | 2019 | Visit | | [address] | | | | | | [place], [place] | | | | | | [address] | | | | | | | | +--------+---------+ + + + documented as of this encounter Visit Diagnoses + + | Diagnosis | + + | Cervical myelopathy (HCC) - Primary Cervical spondylosis with myelopathy | + + | Kyphosis of cervical region, unspecified kyphosis type | + + | Cervical stenosis of spinal canal Spinal stenosis in cervical region | + + | Cervical radicular pain Brachial neuritis or radiculitis nos | + + | Cervicalgia | + + | Gait instability Abnormality of gait | + + documented in this encounter
--- OUTSIDE RECORDS SUMMARY | ~2020-03-15 | XMS | Encounter Summary ---
Demographics + + + | Address | [address] | | | [place] [address] | + + + | Home Phone | | + + + | Preferred Language | Unknown | + + + | Marital Status | | + + + | Rastafari Affiliation | Unknown | + + + | Race | Unknown | + + + | Ethnic Group | Unknown | + + + Author + + + | Author | [facility] | | | and Scout | + + + | Organization | [facility] | | | and [place] | + + + | Address | Unknown | + + + | Phone | Unavailable | + + + Support + + + + + | Name | Relationship | Address | Phone | + + + + + | Kendall MUNSON | [address] | | | | | [place] [address] | | + + + + + Care Team Providers + +------+ + | Care Delivery Person Name | Role | Phone | + +------+ + | Rex Umanzor MD | PCP | | + +------+ + Reason for Visit +--------+ + | Reason | Comments | +--------+ + | Other | sleep results | +--------+ + Encounter Details +--------+---------+ + + + | Date | Type | Department | Care Team | Description | +--------+---------+ + + + | 11/20/ | Office | [facility] | Warner Galdamez | PRISCILLA (obstructive | | 2017 | Visit | SLEEP DISORDER [address] | MD Jovanna [address] | sleep apnea) | | | | [address] [place] | [address] [place] | (Primary Dx) | | | | [place] [address] | [place] [address] | | | | | [phone] | [phone] | | | | | | | [...] + + + | Blood Pressure | 102/70 | 11/20/2016 10:07 AM | | | | | PDT | | + + + + + | Pulse | 80 | 11/20/2016 10:07 AM | | | | | PDT | | + + + + + | Temperature | - | - | | + + + + + | Respiratory Rate | 14 | 11/20/2016 10:07 AM | | | | | PDT | | + + + + + | Oxygen Saturation | 98% | 11/20/2016 10:07 AM | | | | | PDT | | + + + + + | Inhaled Oxygen | - | - | | | Concentration | | | | + + + + + | Weight | 78.3 kg (172 lb 9.6 | 11/20/2016 10:07 AM | | | | oz) | PDT | | + + + + + | Height | - | - | | + + + + + | Body Mass Index | 31.07 | 10/29/2016 10:43 AM | | | | | PDT [...] of this encounter Patient Instructions Patient Instructions Warner Galdamez Jr., MD - 11/20/2016 10:28 AM PDTFormatting of this n ote might be different from the original. Continuous Positive Airway Pressure (CPAP) Your healthcare provider has prescribed continuous positive airway pressure (CPAP) therapy for you. A CPAPdevice helps you breathe better at night. The device sends air through your nose or mouth when you breathe in to keep your air passages open. CPAP is: Used most often to treat sleep apnea and some other problems. (Sleep apnea is a chronic condition with periods of sleep in which you briefly stop breathing.) Safe and very effective. But it takes time to get used to the mask. Your healthcare provider, nurse, or medical supplier will give you tips for wearing and car ing for your CPAP device. General guidelines Recommendations include the following: It's very important not togive up! It takes time to get used to wearing the mask at [facility]. Practice using your CPAP device during the day, especially whenever you take a nap. Remember, there are several different types of masks. If you can t get used to your ma sk, ask your provider or medical supply company about trying another style. If you have nasal stuffiness or dryness when using your CPAP device, talk with your prov ider or medical supply company. There are ways to ease these problems. For example, your pro vider may recommend using a moistening nasal spray. Or the medical supply company may recomm end a device with a humidifier. The goal is to use yourCPAP all night, every night, during all naps, and even when you travel. Keep your mask clean. Wash it with soap and water. Be sure to rinse the mask and tubing well with water to remove any soap. Let them air-dry completely before using. Make yourself comfortable when sleeping with CPAP. Try using extra pillows. Work with your medical supply company so that you know how to correctly use your CPAP. The company's pharmaceutical specialty representative will be able to help you: Use the CPAP correctly Troubleshoot any problems that come up Learn to clean and maintain the device Adjust to regular use of the CPAP The CPAP device settings are given as centimeters of water, or cm/H2O. Each person s pres sure settings are different. Your healthcare provider will tell you what settings to use. Ne vicky change your CPAP pressure setting unless your provider tells you to. CPAP cm/H20 pressure when you breathe in Date Last Reviewed: 12/09/201519996015-7075 [employer]. [address] [place] [address]. All righ ts reserved. This information is not intended as a substitute for professional medical care. Always follow your healthcare professional's instructions. documented in this encounter Progress Notes Warner Galdamez Jr., MD - 11/20/2016 10:08 AM PDTThe patient comes in for follow-up after undergoing home sleep apnea testing. My interpretation of the patient's sleep study, which I have reviewed with the patient, is as follows: Unattended, Multiparameter, Sleep Apnea Test for Ana Wells performed on November 04, 2016. Identifying Information: Ana Wells is a 61 y.o. female who is referred for unatten ded, multi-parameter, sleep apnea test because of probable Obstructive Sleep Apnea. Technical Information: The study was performed on November 04, 2016 using the [employer] equipment with Pol[employer]mit[employer]ooie Version 9 Software. The study was hand [...] the peak signal excursion by 90% or great er of pre-event baseline using an oronasal thermal sensor, or an alternative apnea sensor an d the duration of the 90% or greater drop in sensor signal is greater than or equal to 10 se conds. Obstructive Apnea: Event associated with co ntinued or increased inspiratory effort throughout the entire period of absent airflow. Central Apnea: Event associated with absent inspiratory effort throughout the entire period of absent airflow. Because EEG is not monit ored, Central Apneas cannot be scored with any degree of reliability on this type of sleep s tudy. Mixed Apnea: Event associated with absent i nspiratory effort in the initial portion of the event followed by resumption of inspiratory effort during the second portion of the event. Because EEG is not monitored, mixed apneas ar e not reliably scored on this type of study. Respiratory Event: The peak signal excursions drom by greater than or equal to 30% of pre-event baseline using a recommended or alternative airflow sensor and the duration of the >= 30% drop in signal excursion is greater than or equal to 10 seconds a nd there is a greater than or equal to a 3% oxygen desaturation from pre-event baseline. Respiratory Event Related Arousal: Because EEG is not recorded, Res piratory Event Related Arousal's cannot be enumerated. DAVIE (Respiratory Event Index): Apneas plus Respiratory Events divid ed by Monitoring Time. Results: Data collection commenced [...] diagnosed. This is associated with significant and sust ained oxygen desaturation. Suggestions: Treatment of Obstructive Sleep Apnea is strongly advised. BP 102/70 mmHg | Pulse 80 | Resp 14 | Wt 78.291 kg (172 lb 9.6 oz) | SpO2 98% A: PRISCILLA: The patient has clinically significant PRISCILLA. I've discussed this with the patient sudhir thomas. I've discussed treatment options (weight loss, CPAP, Dental Appliance, surgery) again a nd I am advising a trial of CPAP therapy. The mechanisms of action of CPAP in treating PRISCILLA w ere discussed in detail with the patient. I've discussed desensitization techniques as well as some imagery techniques that can be helpful. I've discussed the use of heated humidity. A nd I've discussed our P[facility] Compliance [facility]. RLS: I'm hoping that this might improve with treatment of her PRISCILLA. P: Resmed AirSense 10 autoset CPAP 4-20cm is prescribed. F/u 4 days after getting CPAP in P[facility] Compliance Clinic. Today, 15 minutes was spent face to face with the patient; the majority of time was spent erasto vale regarding PRISCILLA and its treatment. documented in th is encounter Plan of Treatment +--------+---------+ + + + | Date | Type | Specialty | Care Team | Description | +--------+---------+ + + + | 06/04/ | Office | Sleep Medicine | David Henriquez PA | | | 2019 | Visit | | [address] | | | | | | [place] | | | | | | [phone] | | | | | | | | +--------+---------+ + + + documented as of this encounter Visit Diagnoses + + | Diagnosis | + + | PRISCILLA (obstructive sleep apnea) - Primary Obstructive sleep apnea (adult) (pediatric) | + + documented in this encounter"
--- OUTSIDE RECORDS SUMMARY | ~2020-03-15 | XMS | Encounter Summary ---
Demographics + + + | Address | [address] | | | [place] [address] | + + + | Home Phone | | + + + | Preferred Language | Unknown | + + + | Marital Status | | + + + | Hinduism Affiliation | Unknown | + + + | Race | Unknown | + + + | Ethnic Group | Unknown | + + + Author + + + | Author | [facility] | | | and Scout | + + + | Organization | [facility] | | | and [place] | + + + | Address | Unknown | + + + | Phone | Unavailable | + + + Support + + + + + | Name | Relationship | Address | Phone | + + + + + | Kendall MUNSON | [address] | | | | | [place] [address] | | + + + + + Care Team Providers + +------+ + | Care Certified Surgical Technician Name | Role | Phone | + +------+ + | Rex Umanzor MD | PCP | | + +------+ + Encounter Details +--------+ + + + + | Date | Type | Department | Care Team | Description | +--------+ + + + + | 03/19/ | [facility] | [facility] | Jayme Blevins, | Cervical myelopathy | | 2016 | Encounter | MED CTR XRAY [address] | DO [address] | ([facility]); S/P cervical | | | | [place] | [address] [place], [place] | spinal fusion | | | | [place] [address] | [address] | | | | | [phone] | | | +--------+ + + + [...] 2019 | Visit | | [address] | | | | | | [place] | | | | | | [address] | | | | | | | | +--------+---------+ + + + documented as of this encounter Procedures + +--------+ + + + | Procedure Name | Priori | Date/Time | Associated Diagnosis | Comments | | | ty | | | | + +--------+ + + + | XR CERVICAL SPINE 2 | Routin | 03/19/2016 | Cervical | Results for this | | OR 3 VIEWS | e | 12:15 PM | myelopathy (HCC) | procedure are in the | | | | PDT | S/P cervical spinal | results section. | | | | | fusion | | + +--------+ + + + documented in this encounter Results XR Cervical Spine 2 or 3 Views (03/19/2016 12:15 PM PDT) + + | Specimen | + + | | + + + + + | Narrative | Performed At | + + + | EXAM: XR CERVICAL SPINE 2 OR 3 VIEWS dated 03/19/2016 11:08 AM | [facility] | | HISTORY:S/p cervical fusion COMPARISON: Cervical spine radiographs | [facility] | | dating to 10/23/2015 FINDINGS:Frontal and lateral views of the [facility] | | cervical spine. Anterior cervical discectomy and fusion changes | - IMAGING | | from C3 through C7. Intact hardware which is unchanged position. | | | Ongoing bone incorporation. No change in positioning of the | | | interbody grafts. No change in spinal alignment. IMPRESSION - | | | No radiographic evidence for an interval complication. Dictated | | | and Signed by: Suraj Thayer MD Electronically signed: 03/19/2016 | | | 3:00 PM | | + + + + + | Procedure Note | + + | Anthony, Rad Results In - 03/19/2016 3:04 PM PDT EXAM: XR CERVICAL SPINE 2 OR 3 VIEWS | | dated 03/19/2016 11:08 AMHISTORY:S/p cervical fusionCOMPARISON: Cervical spine | | radiographs dating to 10/23/2015FINDINGS:Frontal and lateral views of the cervical spine. | | Anterior cervicaldiscectomy and fusion changes from C3 through C7. Intact hardware | | which isunchanged position. Ongoing bone incorporation. No change in positioning ofthe | | interbody grafts. No change in spinal alignment.IMPRESSION -No radiographic evidence | | for an interval complication.Dictated and Signed by: Suraj Thayer MD Electronically | | signed: 03/19/2016 3:00 PM | |unchanged position. Ongoing bone incorporation. No change in positioning of | |the interbody grafts. No change in spinal alignment. | | | |IMPRESSION - | | | |No radiographic evidence for an interval complication. | | | |Dictated and Signed by: Suraj Thayer MD | | Electronically signed: 03/19/2016 3:00 PM | + + + + + + + | Performing | Address | City/State/Zipcode | Phone Number | | Organization | | | | + + + + + | [facility] | [address] | [place], [place] | [phone] | | [facility] | | [address] | | | - IMAGING | | | | + + + + + documented in this encounter Visit Diagnoses + + | Diagnosis | + + | Cervical myelopathy (HCC) Cervical spondylosis with myelopathy | + + | S/P cervical spinal fusion Arthrodesis status | + + documented in this encounter"
--- OUTSIDE RECORDS SUMMARY | ~2020-03-15 | XMS | Encounter Summary ---
Demographics + + + | Address | [address] | | | [place] [address] | + + + | Home Phone | | + + + | Preferred Language | Unknown | + + + | Marital Status | | + + + | Taoism Affiliation | Unknown | + + + | Race | Unknown | + + + | Ethnic Group | Unknown | + + + Author + + + | Author | [facility] | | | and cSout | + + + | Organization | [facility] | | | and [place] | + + + | Address | Unknown | + + + | Phone | Unavailable | + + + Support + + + + + | Name | Relationship | Address | Phone | + + + + + | Kendall MUNSON | [address] | | | | | [place] [address] | | + + + + + Care Team Providers + +------+ + | Care Machine Plaster Mixer Name | Role | Phone | + +------+ + | Rex Umanzor MD | PCP | | + +------+ + Reason for Visit + + + | Reason | Comments | + + + | Groin Pain | | + + + | Leg Pain | | + + + Encounter Details +--------+ + + + + | Date | Type | Department | Care Team | Description | +--------+ + + + + | 04/08/ | Emergency | [facility] | Maurice Melo MD | Sciatica, | | 2017 | | [facility] | [address] | unspecified | | | | CENTER [address] | [place], [place] | laterality (Primary | | | | [place], [place] | [address] | Dx) | | | | [address] | | | | | | [phone] | | | +--------+ + + + [...] + + + | Blood Pressure | 115/88 | 04/08/2017 2:56 PM | | | | | PDT | | + + + + + | Pulse | 66 | 04/08/2017 2:56 PM | | | | | PDT | | + + + + + | Temperature | 37.2 C (99 F) | 04/08/2017 1:59 PM | | | | | PDT | | + + + + + | Respiratory Rate | 18 | 04/08/2017 2:56 PM | | | | | PDT | | + + + + + | Oxygen Saturation | 97% | 04/08/2017 2:56 PM | | | | | PDT | | + + + + + | Inhaled Oxygen | - | - | | | Concentration | | | | + + + + + | Weight | 81.6 kg (180 lb) | 04/08/2017 1:59 PM | | | | | PDT | | + + + + + | Height | 157.5 cm (5' 2") | 04/08/2017 1:59 PM | | | | | PDT | | + + + + + | Body Mass Index | 32.92 | 04/08/2017 1:59 PM | | | [...] + documented as of this encounter Discharge Instructions Instructions Maurice Melo MD - 04/08/2017Pain medication as needed Anti-inflammatory as prescribed Slowly resume normal activities Return for worsening symptoms, other new complaints documented in this encounter Medications at Time of Discharge + + + +---------+ + + | Medication | Sig | Dispensed | Refills | Start | End Date | | | | | | Date | | + + + +---------+ + + | DULoxetine | Take 40 mg by mouth | | 0 | | | | (IREDavidKA) [address] | Daily. | | | | | | capsule | | | | | | + + + +---------+ + + | UNABLE TO FIND | Resmed AirSense 10 | | 0 | | | | | autoset CPAP: 4-20 | | | | | | | cm | | | | | + + + +---------+ + + | gabapentin | Take 900 mg by mouth | | 0 | | | | (NEURONTIN) 300 mg | 3 times daily. | | | | 9 | | capsule | | | | | | + + + +---------+ + + | | Take 1 tablet by [...] + + + +---------+ + + | naproxen | Take 1 tablet by | 14 | 0 | 04/08/20 | | | (NAPROSYN) 500 mg | mouth 2 times daily | tablet | | 17 | 7 | | tablet | (with breakfast & | | | | | | | dinner) for 7 days. | | | | | + + + +---------+ + + | | Take 1-2 tablets by | 30 | 0 | 04/08/20 | | | oxyCODONE-acetaminop | mouth every 6 hours | tablet | | 17 | 8 | | hen (PERCOCET) 5-325 | as needed for Pain. | | [...] documented as of this encounter ED Notes Maurice Melo MD - 04/08/2017 2:23 PM PDT Emergency Department Encounter Note CHIEF COMPLAINT: Groin pain HPI Ana Wells is a 61 y.o. female who presents to the Emergency Department with acute onset of left groin pain that radiates to the buttock and down into the knee. She's not had bowel or bladder incontinence. No direct trauma. She has a history of previous lumbar sania k problems and has had problems with nerve impingement in the past. She's not a previous hannah mbar surgeries. She did have cervical spine surgery that did result in some continued right -sided paralysis. She's not had specific weakness of the left side but does have increasing pain with any movement and trouble moving the leg secondary to pain. She's not had fever. No unusual weight loss. She's not had abdominal pain. No urinary complaints. PAST MEDICAL & SURGICAL HISTORY Past Medical History: Diagnosis Date Cervical disc disease High cholesterol History of tobacco use Hypertension Neuropathy (HCC) PRISCILLA (obstructive sleep apnea) no CPAP PONV (postoperative nausea and vomiting) Restless legs syndrome Wears dentures lower partial Past Surgical History: Procedure Laterality Date CARPAL TUNNEL RELEASE Bilateral CERVICAL SPINE SURGERY N/A 10/23/2015 Procedure: C3-4, C4-5, C5-6, C6-7 Anterior Cervical Discectomy w/ Fusion and Plating; Rodolfo geon: Jayme Blevins DO; Location: [facility] MAIN OR CHOLECYSTECTOMY cyst excision anal HYSTERECTOMY rectal fistula repaired right shoulder repair 2016 SINUS SURGERY 2006 TONSILLECTOMY REVIEW OF SYSTEMS As in history of present illness. PHYSICAL EXAM VITAL SIGNS: (first vital signs):Temp: 37.2 C (99 F) Pulse: 76 Resp: 16 SpO2: 98 % BP: 137/83 General: Alert, appears uncomfortable, non toxic HEENT: Normocephalic, atraumatic, OP clear, PERRL, EOMI Neck: supple, full range of motion, no tracheal deviation Cardiovascular: Normal rate and rhythm, no murmurs, rubs or gallops Pulmonary: CTA bilateral, no wheeze/rhonci or resp distress Back: She has tenderness over the sciatic notch on the left, there is no lumbar tenderness, no crepitus, no deformity, distal sensation intact Musculoskeletal: normal ROM, no tenderness Neurologic: Alert, no cranial nerve deficits, no focal deficits Skin: warm and dry ASSESMENT & ED COURSE: Patient here with sciatica. She appears quite uncomfortable. She is treated with IV opiat e and anti-inflammatories. We'll go ahead and start her on a course of anti-inflammatories as well as pain control. She may slowly resume normal activities as tolerated. She does no t have symptoms to suggest infection, bleeding or acute neurologic emergency. DISPOSITION: Discharge FINAL IMPRESSION: Sciatica Maurice Melo MD 04/08/172031 arolina Draper RN - 04/08/2017 1:56 PM PDTComplains of left groin pain that started yesterday and radiates into the buttock. Rates pain 10/10 unrelieved with OTC. No known injury. Hx of upper back surger y over one year ago and has partial paralysis on her right matthew. documented in this encounter Plan of Treatment +--------+---------+ + + + | Date | Type | Specialty | Care Team | Description | +--------+---------+ + + + | 06/04/ | Office | Sleep Medicine | David Henriquez PA | | | 2019 | Visit | | [address] | | | | | | [place] | | | | | | [id number] | | | | | | | | +--------+---------+ + + + documented as of this encounter Visit Diagnoses + + | Diagnosis | + + | Sciatica, unspecified laterality - Primary | + + documented in this encounter Administered Medications + +--------+ +--------+------+------+ | Medication Order | MAR | Action | Dose | Rate | Site | | | Action | Date | | | | + +--------+ +--------+------+------+ | HYDROmorphone (DILAUDID) | Given | 04/08/20 | 0.5 mg | | | | injection 0.5 mg 0.5 mg, | | 17 2:50 | | | | | Intravenous, ONCE, 04/08/17 at | | PM PDT | | | | | 1425, For 1 dose | | | | | | + +--------+ +--------+------+------+ +---+---+ | | | +---+---+ + +-------+ +--------+---+---+ | HYDROmorphone (DILAUDID) | Given | 04/08/20 | 0.5 mg | | | | injection 0.5 mg 0.5 mg, | | 17 3:59 | | | | | Intravenous, ONCE, Thu04/08/17 at | | PM PDT | | | | | 1520, For 1 dose | | | | | | + +-------+ +--------+---+---+ +---+---+ | | | +---+---+ + +-------+ +-------+---+---+ | ketorolac (TORADOL) injection | Given | 04/08/20 | 30 mg | | | | 30 mg 30 mg, Intravenous, ONCE, | | 17 2:50 | | | | | Thu04/08/17 at 1425, For 1 dose | | PM PDT | | | | + +-------+ +-------+---+---+ +---+---+ | | | +---+---+ + +-------+ +------+---+---+ | ondansetron (ZOFRAN) injection | Given | 04/08/20 | 4 mg | | | | 4 mg 4 mg, Intravenous, ONCE, | | 17 2:50 | | | | | 04/08/17 at 1425, For 1 dose | | PM PDT | | | | + +-------+ +------+---+---+ +---+---+ | | | +---+---+ documented in this encounter
--- OUTSIDE RECORDS SUMMARY | ~2020-03-15 | XMS | Encounter Summary ---
Demographics + + + | Address | [address] | | | [place] [address] | + + + | Home Phone | | + + + | Preferred Language | Unknown | + + + | Marital Status | | + + + | Advent Affiliation | Unknown | + + + | Race | Unknown | + + + | Ethnic Group | Unknown | + + + Author + + + | Author | [facility] | | | and Scout | + + + | Organization | [facility] | | | and [place] | + + + | Address | Unknown | + + + | Phone | Unavailable | + + + Support + + + + + | Name | Relationship | Address | Phone | + + + + + | Kendall MUNSON | [address] | | | | | [place] [address] | | + + + + + Care Team Providers + +------+ + | Care Scoreboard Operator Name | Role | Phone | + +------+ + PCP | Unavailable | + +------+ + Encounter Details +--------+ + + + + | Date | Type | Department | Care Team | Description | +--------+ + + + + | 12/19/ | Hospital | [facility] | | | | 2003 | Encounter | MED CTR SLEEP | | | | | | CENTER [address] | | | | | | [place] | | | | | | [address] | | | | | | [phone] | | | +--------+ + + + [...] [place] | | | | | | [address] | | | | | | | | +--------+---------+ + + + documented as of this encounter Visit Diagnoses Not on filedocumented in this encounter"
--- OUTSIDE RECORDS SUMMARY | ~2020-03-15 | XMS | Encounter Summary ---
Demographics + + + | Address | [address] | | | [place] [address] | + + + | Home Phone | | + + + | Preferred Language | Unknown | + + + | Marital Status | | + + + | Alevism Affiliation | Unknown | + + + | Race | Unknown | + + + | Ethnic Group | Unknown | + + + Author + + + | Author | [facility] | | | and Scout | + + + | Organization | [facility] | | | and [place] | + + + | Address | Unknown | + + + | Phone | Unavailable | + + + Support + + + + + | Name | Relationship | Address | Phone | + + + + + | Kendall MUNSON | [address] | | | | | [place] [address] | | + + + + + Care Team Providers + +------+ + | Care Engraving Operator Name | Role | Phone | + +------+ + | Rex Umanzor MD | PCP | | + +------+ + Encounter Details +--------+ + + + + | Date | Type | Department | Care Team | Description | +--------+ + + + + | 06/02/ | Orders Only | [facility] | [facility] | | | 2016 | | CONVERSION [address] | [address] | | | | | [address] | [address] | | | | | [place] | [place] [address] | | | | | [id number] | [phone] | | | | | [phone] | | | +--------+ + + + [...] [place] | | | | | | [address] | | | | | | | | +--------+---------+ + + + documented as of this encounter Procedures + +--------+ + + + | Procedure Name | Priori | Date/Time | Associated Diagnosis | Comments | | | ty | | | | + +--------+ + + + | ECHO INTERPRETATION | Routin | 06/02/2017 | | Results for this | | OF OUTSIDE FILMS | e | 11:38 AM | | procedure are in the | | | | PDT | | results section. | + +--------+ + + + documented in this encounter Results ECHO Interpretation of Outside Films (06/02/2017 11:38 AM PDT) + + | Specimen | + + | | + + + + + | Impressions | Performed At | + + + | 1. Overall left ventricular systolic function is normal with, an EF | | | between 60 - 65 %. 2. The right ventricle is normal in size and | | | function. 3. No clinically significant valvular abnormalities. | | + + + + + + | Narrative | Performed At | + + + | Patient Name: Ana Wells Date of : 1955 | | | Performing Physician: JOSE CANTU MD | | | | | | INDICATIONS Chest pressure CONCLUSIONS | | | 1. Overall left ventricular systolic function is normal with, an EF | | | between 60 - 65 %. 2. The right ventricle is normal in size and | | | function. 3. No clinically significant valvular abnormalities. | | | FINDINGS -------- ECG rhythm: Sinus rhythm. Study: A 2-dimensional | | | transthoracic echocardiogram with m-mode, spectral and color flow | | | Doppler was perfomed. Study: This was a technically adequate study. | | | Left Ventricle: Overall left ventricular systolic function is normal | | | with, an EF between 60 - 65 %. Left Ventricle: The left ventricle | | | cavity size is normal. Left Ventricle: Left ventricular wall | | | thickness is normal. Left Ventricle: No regional wall motion | | | abnormalities. Left Ventricle: The diastolic filling pattern | | | indicates impaired relaxation consistent with mild dysfunction (Grade | | | I), which is normal for the patient's age. Right Ventricle: The right | | | ventricle is normal in size and function. Left Atrium: The left | | | atrium is normal in size. Right Atrium: The right atrium is normal in | | | size. Aortic Valve: The aortic valve is trileaflet and appears | | | structurally normal. Aortic Valve: There is no evidence of aortic | | | regurgitation. Aortic Valve: There is no evidence of aortic stenosis. 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 Mitral Valve: No mitral regurgitation. Mitral Valve: | | | There is minimal mitral valve prolapse of the anterior leaflet. | | | Tricuspid Valve: The tricuspid valve appears structurally normal. | | | Tricuspid Valve: Trace tricuspid regurgitation present. Tricuspid | | | Valve: There is no evidence of pulmonary hypertension. Tricuspid | | | Valve: The right ventricular systolic pressure (pulmonary artery | | | systolic pressure), as measured by Doppler, is 33.36mmHg. Pulmonic | | | Valve: The pulmonic valve is normal. Pulmonic Valve: Trace pulmonic | | | regurgitation. Pericardium: There is no pericardial effusion. | | | IVC/Hepatic Veins: The IVC is normal size (1.5-2.5cm) and collapses | | | >50% with sniff, consistent with central venous pressures of 5-10mmHg. | | | Aorta: The aortic root and ascending aorta are normal. The | | | aortic a Aorta: rch is not well seen. Mass: No mass visualized | | | Thrombus: No clot visualized Thrombus: No vegetation visualized. | | | Septum: No ASD observed. Septum: No VSD observed. MEASUREMENTS | | | Ao asc: 2.91 cm Ao Diam: 2.48 cm Ao sinus: | | | 2.[address] junct: 2.40 cm IVC: 1.51 cm LA Diam: 3.60 cm | | | LA Major: 4.41 cm EDV(Teich): 98.27 ml IVSd: 0.72 cm | | | LVIDd: 4.61 cm LVPWd: 0.75 cm LVOT Area: 3.15 cm2 LVOT | | | Diam: 2.00 cm %FS: 35.32 % EF(Teich): 64.75 % ESV(Teich): | | | 34.63 ml LVIDs: 2.98 cm SV(Teich): 63.63 ml RA Major: | | | 4.56 cm RV Major: 6.99 cm RVIDd: 2.62 cm LVEF MOD A2C: | | | 61.18 % SV MOD A2C: 37.29 ml LVEF MOD A4C: 63.70 % SV MOD | | | A4C: 36.53 ml EF Biplane: 62.82 % LVEDV MOD BP: 60.15 ml | | | LVESV MOD BP: 22.36 ml LVEDV MOD A2C: 60.96 ml LVLd A2C: | | | 7.15 cm LVEDV MOD A4C: 57.35 ml LVLd A4C: 6.89 cm LVESV MOD | | | A2C: 23.66 ml LVLs A2C: 5.77 cm LVESV MOD A4C: 20.81 ml | | | LVLs A4C: 5.63 cm LAESV(A-L): 47.40 ml LAESV Index (A-L): | | | 25.62 ml/m2 LAAs A2C: 15.09 cm2 LAESV A-L A2C: 44.18 ml LALs | | | A2C: 4.37 cm LAAs A4C: 16.19 cm2 LAESV A-L A4C: 45.56 ml | | | LALs A4C: 4.88 cm RAAs: 12.45 cm2 RAESV A-L: 29.62 ml | | | RAESV MOD: 28.63 ml RALs: 4.44 cm TAPSE: 2.32 cm AV maxPG: | | | 6.33 mmHg AV meanP.74 mmHg AV Vmax: 1.25 m/s AV | | | Vmean: 0.74 m/s AV VTI: 22.83 cm JEAN Vmax: 2.45 cm2 JEAN | | | (VTI): 2.79 cm2 AVAI Vmax: 0.00 cm2/m2 AVAI (VTI): 0.00 | | | cm2/m2 LVOT maxP.84 mmHg LVOT meanP.90 mmHg LVSI | | | Dopp: 34.52 ml/m2 LVSV Dopp: 63.87 ml LVOT Vmax: 0.98 m/s | | | LVOT Vmean: 0.64 m/s LVOT VTI: 20.27 cm MV A Yo: 0.84 m/s | | | MV DecT: 151.80 ms MV E Yo: 0.74 m/s MV E/A Ratio: 0.87 | | | MV PHT: 44.02 ms MVA By PHT: 4.99 cm2 Septal e': 0.07 m/s | | | Septal E/e': 10.33 Lateral e': 0.08 m/s Lateral E/e': 9.21 | | | RAP: 5 mmHg RVSP: 33.36 mmHg TR maxP.36 mmHg TR | | | Vmax: 2.66 m/s Helminthologist: JULIO CESAR Authenticated by: JOSE | | | MD PEPE Report Date/Time: -- [id number] | | + + + + + | Procedure Note | + + | Fredy Cruz Conversion - 03/31/2019 8:34 PM PDT Patient Name: Danilo Wells | | : 1955 Performing Physician: JOSE CANTU, | | INDICATIONS C | | hest pressure CONCLUSIONS 1. Overall left ventricular systolic function is | | normal with, an EF between 60 - 65 %.2. The right ventricle is normal in size and | | function. 3. No clinically significant valvular abnormalities. FINDINGS--------ECG | | rhythm: Sinus rhythm.Study: A 2-dimensional transthoracic echocardiogram with m-mode, | | spectral and color flow Doppler was perfomed.Study: This was a technically adequate | | study.Left Ventricle: Overall left ventricular systolic function is normal with, an EF | | between 60 - 65 %.Left Ventricle: The left ventricle cavity size is normal.Left | | Ventricle: Left ventricular wall thickness is normal.Left Ventricle: No regional wall | | motion abnormalities.Left Ventricle: The diastolic filling pattern indicates impaired | | relaxation consistent with mild dysfunction (Grade I), which is normal for the patient's | | age.Right Ventricle: The right ventricle is normal in size and function.Left Atrium: | | The left atrium is normal in size.Right Atrium: The right atrium is normal in | | size.Aortic Valve: The aortic valve is trileaflet and appears structurally normal.Aortic | | Valve: There is no evidence of aortic regurgitation.Aortic Valve: There is no evidence | | of aortic stenosis.Mitral Valve: 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 | | degeneration.Mitral Valve: No mitral regurgitation.Mitral Valve: There is minimal mitral | | valve prolapse of the anterior leaflet.Tricuspid Valve: The tricuspid valve appears | | structurally normal.Tricuspid Valve: Trace tricuspid regurgitation present.Tricuspid | | Valve: There is no evidence of pulmonary hypertension.Tricuspid Valve: The right | | ventricular systolic pressure (pulmonary artery systolic pressure), as measured by | | Doppler, is 33.36mmHg.Pulmonic Valve: The pulmonic valve is normal.Pulmonic Valve: Trace | | pulmonic regurgitation.Pericardium: There is no pericardial effusion.IVC/Hepatic | | Veins: The IVC is normal size (1.5-2.5cm) and collapses >50% with sniff, consistent with | | central venous pressures of 5-10mmHg.Aorta: The aortic root and ascending aorta are | | normal. The aortic aAorta: rch is not well seen.Mass: No mass visualizedThrombus: No | | clot visualizedThrombus: No vegetation visualized.Septum: No ASD observed.Septum: No VSD | | observed. MEASUREMENTS Ao asc: 2.91 cmAo Diam: 2.48 cmAo sinus: 2.68 | | cmAo st junct: 2.40 cmIVC: 1.51 cmLA Diam: 3.60 cmLA Major: 4.41 cmEDV(Teich): | | 98.27 mlIVSd: 0.72 cmLVIDd: 4.61 cmLVPWd: 0.75 cmLVOT Area: 3.15 [id number] Diam: | | 2.00 cm%FS: 35.32 %EF(Teich): 64.75 %ESV(Teich): 34.63 mlLVIDs: 2.98 | | cmSV(Teich): 63.63 mlRA Major: 4.56 cmRV Major: 6.99 cmRVIDd: 2.62 cmLVEF MOD | | A2C: 61.18 %SV MOD A2C: 37.29 mlLVEF MOD A4C: 63.70 %SV MOD A4C: 36.53 mlEF | | Biplane: 62.82 %LVEDV MOD BP: 60.15 mlLVESV MOD BP: 22.36 mlLVEDV MOD A2C: 60.96 | | mlLVLd A2C: 7.15 cmLVEDV MOD A4C: 57.35 mlLVLd A4C: 6.89 cmLVESV MOD A2C: 23.66 | | mlLVLs A2C: 5.77 cmLVESV MOD A4C: 20.81 mlLVLs A4C: 5.63 cmLAESV(A-L): 47.40 | | mlLAESV Index (A-L): 25.62 ml/m2LAAs A2C: 15.09 [id number] A-L A2C: 44.18 mlLALs | | A2C: 4.37 cmLAAs A4C: 16.19 [id number] A-L A4C: 45.56 mlLALs A4C: 4.88 cmRAAs: | | 12.45 [id number] A-L: 29.62 mlRAESV MOD: 28.63 mlRALs: 4.44 cmTAPSE: 2.32 cmAV | | maxP.33 mmHgAV meanP.74 mmHgAV Vmax: 1.25 m/Yohana Vmean: 0.74 m/Yohana VTI: | | 22.83 cmAVA Vmax: 2.45 cm2AVA (VTI): 2.79 [id number] Vmax: 0.00 cm2/m2AVAI (VTI): | | 0.00 cm2/m2LVOT maxP.84 mmHgLVOT meanP.90 mmHgLVSI Dopp: 34.52 ml/m2LVSV | | Dopp: 63.87 mlLVOT Vmax: 0.98 m/sLVOT Vmean: 0.64 m/sLVOT VTI: 20.27 cmMV A Yo: | | 0.84 m/sMV DecT: 151.80 msMV E Yo: 0.74 m/sMV E/A Ratio: 0.87MV PHT: 44.02 | | msMVA By PHT: 4.99 he3Hzskjn e': 0.07 m/sSeptal E/e': 10.33Lateral e': 0.08 | | m/sLateral E/e': 9.21RAP: 5 mmHgRVSP: 33.36 mmHgTR maxP.36 mmHgTR Vmax: | | 2.66 m/s Helminthologist: DHAuthenticated by: Tate YANES Date/Time: -- | | [id number] IMPRESSION: 1. Overall left ventricular systolic function is | | normal with, an EF between 60 - 65 %.2. The right ventricle is normal in size and | | function. 3. No clinically significant valvular abnormalities. | |MEASUREMENTS | | | |Ao asc: 2.91 cm | |Ao Diam: 2.48 cm | |Ao sinus: 2.68 cm | |Ao st junct: 2.40 cm | |IVC: 1.51 cm | |LA Diam: 3.60 cm | |LA Major: 4.41 cm | |EDV(Teich): 98.27 ml | |IVSd: 0.72 cm | |LVIDd: 4.61 cm | |LVPWd: 0.75 cm | |LVOT Area: 3.15 cm2 | |LVOT Diam: 2.00 cm | |%FS: 35.32 % | |EF(Teich): 64.75 % | |ESV(Teich): 34.63 ml | |LVIDs: 2.98 cm | |SV(Teich): 63.63 ml | |RA Major: 4.56 cm | |RV Major: 6.99 cm | |RVIDd: 2.62 cm | |LVEF MOD A2C: 61.18 % | |SV MOD A2C: 37.29 ml | |LVEF MOD A4C: 63.70 % | |SV MOD A4C: 36.53 ml | |EF Biplane: 62.82 % | |LVEDV MOD BP: 60.15 ml | |LVESV MOD BP: 22.36 ml | |LVEDV MOD A2C: 60.96 ml | |LVLd A2C: 7.15 cm | |LVEDV MOD A4C: 57.35 ml | |LVLd A4C: 6.89 cm | |LVESV MOD A2C: 23.66 ml | |LVLs A2C: 5.77 cm | |LVESV MOD A4C: 20.81 ml | |LVLs A4C: 5.63 cm | |LAESV(A-L): 47.40 ml | |LAESV Index (A-L): 25.62 ml/m2 | |LAAs A2C: 15.09 cm2 | |LAESV A-L A2C: 44.18 ml | |LALs A2C: 4.37 cm | |LAAs A4C: 16.19 cm2 | |LAESV A-L A4C: 45.56 ml | |LALs A4C: 4.88 cm | |RAAs: 12.45 cm2 | |RAESV A-L: 29.62 ml | |RAESV MOD: 28.63 ml | |RALs: 4.44 cm | |TAPSE: 2.32 cm | |AV maxP.33 mmHg | |AV meanP.74 mmHg | |AV Vmax: 1.25 m/s | |AV Vmean: 0.74 m/s | |AV VTI: 22.83 cm | |JEAN Vmax: 2.45 cm2 | |JEAN (VTI): 2.79 cm2 | |AVAI Vmax: 0.00 cm2/m2 | |AVAI (VTI): 0.00 cm2/m2 | |LVOT maxP.84 mmHg | |LVOT meanP.90 mmHg | |LVSI Dopp: 34.52 ml/m2 | |LVSV Dopp: 63.87 ml | |LVOT Vmax: 0.98 m/s | |LVOT Vmean: 0.64 m/s | |LVOT VTI: 20.27 cm | |MV A Yo: 0.84 m/s | |MV DecT: 151.80 ms | |MV E Yo: 0.74 m/s | |MV E/A Ratio: 0.87 | |MV PHT: 44.02 ms | |MVA By PHT: 4.99 cm2 | |Septal e': 0.07 m/s | |Septal E/e': 10.33 | |Lateral e': 0.08 m/s | |Lateral E/e': 9.21 | |RAP: 5 mmHg | |RVSP: 33.36 mmHg | |TR maxP.36 mmHg | |TR Vmax: 2.66 m/s | | | |Helminthologist: | |Authenticated by: JOSE CANTU MD | |Report Date/Time: -- [id number] | | | |IMPRESSION: | |1. Overall left ventricular systolic function is normal with, an EF between 60 - 65 %. | |2. The right ventricle is normal in size and function. 3. No clinically significant valvul ar abnormalities. | + + documented in this encounter Visit Diagnoses Not on filedocumented in this encounter"
--- OUTSIDE RECORDS SUMMARY | ~2020-03-15 | XMS ---
Demographics + + + | Address | [address] | | | [place] [address] | + + + | Preferred Language | Unknown | + + + | Marital Status | Unknown | + + + | Mandaen Affiliation | Unknown | + + + | Race | Unknown | + + + | Ethnic Group | Unknown | + + + Author + + + | Author | [facility] | + + + | Organization | [facility] | + + + | Address | [address] | | | [place] [address] | + + + | Phone | | + + + Care Team Providers + + + + | Care Electrical Experimental Mechanic Name | Role | Phone | + + + + Unavailable | Unavailable | + + + + PROBLEMS + + + + + + + + | Type | Condition | ICD9-CM | [id number] | Onset | Condition | SNOMED | | | | Code | Code | Dates | Status | Code | + + + + + + + + | Problem | Depression | | F32.9 | | Active | [id number] | + + + + + + + + | Problem | H/O | Z98.89 | | | Active | | | | cervical | | | | | | | | spine | | | | | | | | surgery | | | | | | + + + + + + + + | Problem | HTN | | I10 | | Active | [id number] | | | (hypertens | | | | | | | | ion) | | | | | | + + + + + + + + | Problem | Encounter | | Z13.89 | | Active | [id number] | | | for | | | | | | | | screening | | | | | | | | for other | | | | | | | | disorder | | | | | | + + + + + + + + | Problem | Sleep | G47.30 | | | Active | 90184389 | | | apnea | | | | | | + + + + + + + + | Problem | Right | M75.101 | | | Active | [id number] | | | rotator | | | | | [id number] | | | cuff tear | | | | | | + + + + + + + + | Problem | Benign | H81.10 | | | Active | 798341948 | | | positional | | | | | | | | vertigo | | | | | | + + + + + + + + | Problem | Tobacco | | Z72.0 | | Active | 319782519 | | | use | | | | | | + + + + + + + + | Problem | COPD | | J44.9 | | Active | 24629750 | | | (chronic | | | | | | | | obstructiv | | | | | | | | e | | | | | | | | pulmonary | | | | | | | | disease) | | | | | | + + + + + + + + | Assessment | Severe | G47.33 | | 12 December, | Active | 60825843 | | | obstructiv | | | 2017 | | | | | e sleep | | | | | | | | apnea | | | | | | + + + + + + + + | 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 | | | Active | 03547109 | | | ic polyp | | | | | | | | of | | | | | | | | ascending | | | | | | | | colon | | | | | | + + + + + + + + | Assessment | Overweight | | E66.3 | 12 December, | Active | [id number] | | | | | | 2017 | | | + + + + + + + + | Problem | Degenerati | | M47.816 | | Active | 82339956 | | | ve joint | | | | | | | | disease | | | | | | | | (DJD) of | | | | | | | | lumbar | | | | | | | | spine | | | | | | + + + + + + + + | Problem | DJD | M47.812 | | | Active | [phone] | | | (degenerat | | | | | | | | jesus joint | | | | | | | | disease) | | | | | | | | of | | | | | | | | cervical | | | | | | | | spine | | | | | | + + + + + + + + | Problem | Dyslipidem | E78.5 | | | Active | [id number] | | | ia | | | | | | + + + + + + + + | Problem | Severe | G47.33 | | | Active | 06655407 | | | obstructiv | | | | | | | | e sleep | | | | | | | | apnea | | | | | | + + + + + + + + | Problem | Chronic | | G89.4 | | Active | [id number] | | | pain | | | | | | | | syndrome | | | | | | + + + + + + + + | Problem | Tobacco | F17.200 | | | Active | [id number] | | | use | | | | | | | | disorder | | | | | | + + + + + + + + ALLERGIES + + + + +---------+ | Substance | Reaction | Event Type | Date | Status | + + + + +---------+ | Oumar | Unknown | Non Drug | December, | Unknown | | | | Allergy | | | + + + + +---------+ SOCIAL HISTORY No smoking Hx information available PLAN OF CARE VITAL SIGNS + + + + | Height | 63 in | 2016-12-12 | + + + + | Weight | 174 lbs | 2016-12-12 | + + + + | BMI | 30.82 kg/m2 | 2016-12-12 | + + + + | Temperature | 98.1 degrees Fahrenheit | 2016-12-12 | + + + + | Heart Rate | 73 /min | 2016-12-12 | + + + + | Blood pressure systolic | 132 mm Hg | 2016-12-12 | + + + + | Blood pressure diastolic | 84 mm Hg | 2016-12-12 | + + + + MEDICATIONS + + + + + + + +--------+ | Medicati | Instruct | Dosage | Frequenc | Start | End Date | Duration | Status | | on | ions | | y | Date | | | | + + + + + + + +--------+ | Multi | Orally | 1 tablet | 24h | | | | Active | | Vitamin | Once a | | | | | | | | Daily | day | | | | | | | + + + + + + + +--------+ | Simvasta | Orally | 1 tablet | 24h | | | 90 days | Active | | tin 40 | Once a | in the | | | | | | | MG | day | evening | | | | | | + + + + + + + +--------+ | Duloxeti | | TAKE ONE | | | | 30 | Active | | ne HCl | | CAPSULE | | | | | | | 40mg | | BY | | | | | | | | | MOUTH | | | | | | | | | EVERY | | | | | | | | | DAY | | | | | | + + + + + + + +--------+ | Losartan | Orally | 1 tablet | 24h | 11 Mar, | | 90 days | Active | | | Once a | | | 2016 | | | | | Potassiu | day | | | | | | | | m-HCTZ | | | | | | | | | 100-25 | | | | | | | | | MG | | | | | | | | + + + + + + + +--------+ | Gabapent | Orally | 3 | 8h | | | | Active | | in 300 | Three | capsule | | | | | | | MG | times a | | | | | | | | | day | | | | | | | + + + + + + + +--------+ RESULTS No Results PROCEDURES + + + + + | Procedure | Date Ordered | Related Diagnosis | Body Site | + + + + + | Est Level III | December 12, 2016 | | | | Intermediate | | | | + + + + + | [id number] MED/CURRENT | December 12, 2016 | | | | MED MERGE | | | | + + + + + IMMUNIZATIONS No Known Immunizations"
--- OUTSIDE RECORDS SUMMARY | ~2020-03-15 | XMS | Encounter Summary ---
Demographics + + + | Address | [address] | | | [place] [address] | + + + | Home Phone | | + + + | Preferred Language | Unknown | + + + | Marital Status | | + + + | Jain Affiliation | Unknown | + + + | Race | Unknown | + + + | Ethnic Group | Unknown | + + + Author + + + | Author | [facility] | | | and Scout | + + + | Organization | [facility] | | | and [place] | + + + | Address | Unknown | + + + | Phone | Unavailable | + + + Support + + + + + | Name | Relationship | Address | Phone | + + + + + | Kendall MUNSON | [address] | | | | | [place] [address] | | + + + + + Care Team Providers + +------+ + | Care Rubber Compounder Formulator Name | Role | Phone | + [...] | | | | | ([facility]) | | | | | | | Procedures | | | | | | | DC | | | | | | | [...] Description | +--------+---------+ + + + | 10/22/ | Surgery | [facility] | Jayme Blevins, | C3-4, C4-5, C5-6, | | 2016 | | [facility] | DO [address] | C6-7 Anterior | | | | [address] | [address] [place] [address] | Cervical Discectomy | | | | [place] | [id number] | w/ Fusion and | | | | [phone] | | Plating | | | | [phone] | | | +--------+---------+ + + + [...] + + + | Blood Pressure | 113/69 | 10/23/2015 1:55 PM | | | | | PDT | | + + + + + | Pulse | 70 | 10/23/2015 2:00 PM | | | | | PDT | | + + + + + | Temperature | 36.2 C (97.2 F) | 10/23/2015 12:52 PM | | | | | PDT | | + + + + + | Respiratory Rate | 18 | 10/23/2015 2:00 PM | | | | | PDT | | + + + + + | Oxygen Saturation | 95% | 10/23/2015 2:00 PM | | | | | PDT [...] of admission the patient was admitted to [facility] and underwent a C3-C7 . Patient was [...] signed by: Alex Sandra, 10/24/2015 7:50 [facility] documented in this encounter Discharge Instructions [...] + documented as of this encounter Progress Alex Webb PA - 10/24/2015 7:39 AM PDTFormatting of this note might be different f rom the original. [facility] PROGRESS NOTE Pt. Name/Age/: Ana Wells 60 y.o. 1955 Post operative day 1 SUBJECTIVE: Patient doing well. Pain is well controlled. 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 CRANIAL NERVES: II: Acuity is intact. [...] Intrinsics 4- 4- Ulnar Intrinsics 4- 4- Tree Doctor Strength 4- 4- Hip Flexion 4+ 4+ [...] and Plating; Surgeon: Jayme Blevins DO; Location: [facility] MAIN OR No Known Allergies Precautions/Limitations: spinal, falls, orthotic/bracing (B-Collar) Left Upper Extremity Weight-Bearing: (No overhead push, pull, lift) Right Upper Extremity Weight-Bearing: (No overhead push, pull, lift) Left Lower Extremity Weight-Bearing: full weight-bearing Right Lower Extremity Weight-Bearing: full weight-bearing Evaluation SUBJECTIVE: History of Presenting Problem: Ana Wells is a 60 y.o. who presents to the [facility] for Neck pain sx x 5 [...] (1 x evaluation) until discharge from the [facility] or discharged from the hospital. Occupational Therapy [...] multiple contributors. ADLs UB Dressing, Level of Beasley: modified independence LB, Level of Beasley: modified independence Toileting, Level of Beasley: modified independence Grooming, Level of Beasley: modified independence Transfers Toilet, Level of Beasley: modified independence STG Goals OT Additional Goal [...] discharged home with significant other. lan of Robyn - Violet Pope RN - 10/24/2015 10:44 AM PDTDischarge planning; Visited with Lois. Maria Isabel méndez today at noon. She lives with her spouse on the [facility]. Her spouse will stay h ome the [...] proper technique for BTB. Able to don Florence collar indpt, vc's given for pointers. Modified [...] bed mobility, transfers, gait trg/safety, stair trg, Florence collar, HEP, grade B review Patient Status/Goals: Reflects last filed data of patient status; may be from multiple contributors. Gait Level of Beasley : modified independence Assistive Device: 2 wheeled walker (FWW) Distance (feet): 300 Gait Pattern Analysis: (.) Gait Deviations: lorena decreased, stride length decreased Impairments: impaired balance Stairs Up/down 4 steps, modified indtp, 2 rails. Transfers Sit-Stand, Level of Beasley: modified independence Stand-Sit, Level of Beasley: modified independence, verbal cues required [id number], Assistive Device: 2 wheeled walker (FWW) Safety Issues: balance decreased during turns Impairments: impaired balance, postural control impaired Bed Mobility (pt utilizes logroll technique) Assistive Device: none Supine to Sit, Level of Beasley: independent Sit to Supine, Level of Beasley: not tested Safety Issues: decreased use of arms for pushing/pulling Impairments: postural control impaired STG GOALS Bed Mobility Goal, Activity Type: supine to sit/sit to supine Beasley Level: independent Assistive Device: none Time to Achieve: 2 - 3 days Goal Status: met Transfer Training Goal, Activity Type: sit to stand/stand to sit Beasley Level: modified independence Assistive Device: 2 wheeled walker (FWW) Time to Achieve: 2 - 3 days Goal Status: met, revised Gait Training Goal, Beasley Level: modified independence Assistive Device: 2 wheeled walker (FWW) Distance: 150 Time to Achieve: 2 - 3 days Goal Status: met, revised Stairs Goal, Beasley Level: modified independence Assistive Device: none Number [...] Cheryl Esteves, PT, 10/24/2015 9:12 lan of [facility] Jennifer read RN - 10/24/2015 8:07 AM [...] was rating this pain while using 1 [place] 10-325 at a time. 5. She walked the day of surgery so this goal was accomplished. 6. She did not have a BM in spite of being given Lactulose yesterday morning and a stool so ftener last night. She refused the 2nd dose of Lactulose stating she had to drive to [facility] and did not want to have an issue on the way there. 7. She is free from s/s of infection. 8. She tolerated her diet ok. 9. She was not yet Mod I in the room. She was SBA in the room w/FWW. Her LAMONT drain had about 80 mL in it overnight. Her dressing was CDI lan of Care - Pi Kaela Sweet RN - 10/23/2015 11:51 PM PDTProblem: Patient [...] t he floor. Muscle strengths 5/5, strong job service specialist and plantar/dorsiflexion. Dressing was CDI. A little [...] a 60 y.o. who presents to the [facility] for mobility limitation s/p C3-C7 ACD w/ [...] be from multiple contributors. Gait Level of Beasley : contact guard assist, verbal cues required Assistive Device: 2 wheeled walker (FWW) Distance (feet): 100 Gait Pattern Analysis: 2-point gait Gait Deviations: lorena decreased, stride length decreased Impairments: impaired balance Stairs TBA Transfers Sit-Stand, Level of Beasley: contact guard assist, verbal cues required Stand-Sit, Level of Beasley: contact guard assist, verbal cues required [id number], Assistive Device: 2 wheeled walker (FWW) Safety Issues: balance decreased during turns Impairments: impaired balance, postural control impaired Bed Mobility (pt utilizes logroll technique) Assistive Device: none Supine to Sit, Level of Beasley: contact guard assist Sit to Supine, Level of Beasley: supervision required Safety Issues: decreased use of arms for pushing/pulling Impairments: postural control impaired ROM ROM Testing Results: no range of motion deficits identified Strength Strength Testing Results: no strength deficits were identified STG GOALS Bed Mobility Goal, Activity Type: supine to sit/sit to supine Beasley Level: independent Assistive Device: none Time to Achieve: 2 - 3 days Goal Status: new Transfer Training Goal, Activity Type: sit to stand/stand to sit Beasley Level: modified independence Assistive Device: 4 wheeled walker (4WW) Time to Achieve: 2 - 3 days Goal Status: new Gait Training Goal, Beasley Level: modified independence Assistive Device: 4 wheeled walker (4WW) Distance: 150 Time to Achieve: 2 - 3 days Goal Status: new Stairs Goal, Beasley Level: modified independence Assistive Device: none Number [...] Quan, Speech Pathologist - 10/23/2015 4:07 PM Mj gilman of this note might be different from [...] thro at pain during swallow at 4/10. BUSINESS ANALYTICS DIRECTOR educated on the need for pain management and to alert RN if pain is increasing. Pt states no dysphagia, and no GERD. She states bilateral numbness i n her hands which occasionally makes it hard to cut food. OME reveals no deficits. Pt's voic e is hoarse which she states is not normal, but has gotten better with increased water intak e. BUSINESS ANALYTICS DIRECTOR observed the pt set up her items and self feed bites of puree, chopped, mixed, and br ead textures. Pt did not report increased pain with these textures, but did use a liquid was h with chopped and bread textures. SHe had no overt s/s of airway compromise with any solid or liquid texture trialed. BUSINESS ANALYTICS DIRECTOR rec'd and educated the Pt on dysphagia advanced textures and thin liquids. BUSINESS ANALYTICS DIRECTOR rec'd increase this diet texture once Pt's odynophagia has resolved. Pt ve rbalized understanding. No further skilled BUSINESS ANALYTICS DIRECTOR services needed at this time. BUSINESS ANALYTICS DIRECTOR explained t exture recommendation to the RN. Speech language pathology will follow Ana Shah only until discharge from [facility] or discharged from the hospital. Speech Language Pathology Anticipated Discharge Needs are: home with family/caregiver, ADL assist Post discharge speech language pathology recommendation: no further Speech Therapy Planned Interventions: diet texture modification, patient/caregiver education BUSINESS ANALYTICS DIRECTOR Diagnosis: mild dysphagia c/b odynophagia and [...] PM PDTDATE: 10/23/2015 SURGEON: Jayme Blevins DO CISCO UNIFIED COMMUNICATIONS ENGINEER: Alex Sandra PA-C PREOPERATIVE DIAGNOSES: 1. Cervical [...] until th e uncovertebral joints were exposed. [place] distraction pins were placed at the C4-5 [...] x 14 mm cortical reyna ne from [facility] was chosen, and to achieve arthrodesis, endplates [...] fit well and was snug. Next, the [place] pi ns were moved to the C6 and C7 vertebral bodies. Bone wax was used to fill the holes created by the [place] pins previously. Next, attention was turned to the C6-7 level. The diskectomy was initiated with #11 by inci sing the annulus at C6-7. Diskectomy was [...] fit well and was snug. Next, the [place] distraction pins were placed at the C3-4 [...] fit well and was snug. Next, the [place] pins were removed and bone wax was placed where the pins were to arrest reyna ne bleeding. A 80 mm [facility] [employer]ational plate was chosen. This is by [employer]. It was p laced on top of [...] Note Ana Wells 60 y.o. female 1955 [id number] Proc. 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 No other abnormalities found. Complications none Specimens * No specimens in log * Drains Drain/Device Site 10/23/15 1211 #1 Right anterior neck (Active) Electronically signed by: Jayme Blevins DO 10/23/2015 12:56 [facility] Jayme Blevins DO at 10/08 12:57 PM PDTdocumented in this encounter Plan of Treatment +--------+---------+ + + + | Date | Type | Specialty | Care Team | Description | +--------+---------+ + + + | 06/04/ | Office | Sleep Medicine | David Henriquez PA | | | 2019 | Visit | | [address] | | | | | | [place] | | | | | | [address] | | | | | | | [...] + + | Performing | Address | City/State/[facility] | Phone Number | | Organization | | | | + +---------+ + + | [facility] | | | | + +---------+ + + LAKESHA Baron Osorio No Mary (10/23/2015 12:38 PM PDT) + + | [...] [facility] | | [facility] | [facility] - | | | | | | [facility] BANK | | + + + + + + | Rh Type | Positive | | [facility] | | | | | | [facility] | | | | [...] ST. | [address] | [place] | | | [facility] | | [address] | | | - BLOOD BANK | | | | + + + + + documented in this encounter Visit Diagnoses + + | Diagnosis | + + | Disease of spinal cord (HCC) Unspecified disease of spinal cord | + + documented in this encounter
--- OUTSIDE RECORDS SUMMARY | ~2020-03-15 | XMS | Encounter Summary ---
Demographics + + + | Address | [address] | | | [place] [address] | + + + | Home Phone | | + + + | Preferred Language | Unknown | + + + | Marital Status | | + + + | Uatsdin Affiliation | Unknown | + + + | Race | Unknown | + + + | Ethnic Group | Unknown | + + + Author + + + | Author | [facility] | | | and Scout | + + + | Organization | [facility] | | | and [place] | + + + | Address | Unknown | + + + | Phone | Unavailable | + + + Support + + + + + | Name | Relationship | Address | Phone | + + + + + | Kendall MUNSON | [address] | | | | | [place] [address] | | + + + + + Care Team Providers + +------+ + | Care Operations Manager Station Name | Role | Phone | + +------+ + | Rex Umanzor MD | PCP | | + +------+ + Reason for Referral Diagnostic/Screening (Routine) +--------+--------+ + + + + | Status | Reason | Specialty | Diagnoses / | Referred By | Referred To | | | | | Procedures | Contact | Contact | +--------+--------+ + + + + | Closed | | Radiology | Diagnoses | Felicity, | [facility] | | | | | Cervical | Jayme Keating DO | [address] | | | | | myelopathy | [address] | [place], | | | | | ([facility]) S/P | [address] | [place] | | | | | cervical | [place] | [address] | | | | | spinal | [address] | Phone: | | | | | fusion | Phone: | [phone] | | | | | Procedures | [phone] | Fax: | | | | | MRI Cervical | Fax: | [phone] | | | | | Spine wo | [phone] | | | | | | Contrast | | | +--------+--------+ + + + + Reason for Visit + + + | Reason | Comments | + + + | Follow-up | 6w PO | + + + Encounter Details +--------+---------+ + + + | Date | Type | Department | Care Team | Description | +--------+---------+ + + + | 03/10/ | Office | [facility] | Jayme Blevins, | Cervical myelopathy | | 2016 | Visit | NEUROSURGERY [address] | DO [address] | ([facility]) (Primary Dx); | | | | [address] | [address] [place], [place] | S/P cervical spinal | | | | [place], [place] | [address] | fusion; Chronic | | | | [address] | | midline low back | | | | [phone] | | pain with | | | | | | right-sided sciatica | +--------+---------+ + + + Social History [...] +---------+ + + | Blood Pressure | 103/69 | 03/10/2016 9:07 AM | | | | | PDT | | + +---------+ + + | Pulse | 69 | 03/10/2016 9:07 AM | | | | | PDT | | + +---------+ + + | Temperature | - | - | | + +---------+ + + | Respiratory Rate | 18 | 03/10/2016 9:07 AM | | | | | PDT | | + +---------+ + + | Oxygen Saturation | - [...] +---------+ + + documented in this encounter Functional [...] Instructions Patient Instructions Jayme Blevins DO - 03/10/2016 9:40 AM PDTPlease undergo MRI of the cervical spine and x-rays of the lumbar spine. Please undergo new x-rays of the cervical spine in 3 and 9 months. Please follow-up with me after the imaging. documented in this encounter Progress Notes Jayme Blevins DO - 03/10/2016 9:41 AM PDTFormatting of this note might be different fro m the original. Jayme Blevins DO [address] [facility] [address] [place] [address] FAX: NEUROSURGERY FOLLOW-UP CHIEF COMPLAINT: Chief Complaint Patient presents with Follow-up 6w PO HISTORY OF PRESENT ILLNESS: The patient is a 60 y.o. female that had an ACDF C3-7 by me f or cervical myelopathy around 3 months ago. She returns [...] She says neck pain is res olved. PAST MEDICAL HISTORY: Past Medical History Diagnosis [...] Discectomy w/ Fusion and Plating; Pinedo rgeon: Jamye Blevins DO; Location: [facility] MAIN OR CURRENT MEDICATIONS: Current Outpatient Prescriptions Medication Sig Dispense Refill cyanocobalamin (VITAMIN B-12) 500 mcg tablet Take 500 mcg by mouth Daily. diazepam (VALIUM) 5 mg tablet Take 1 tablet by mouth every 6 hours as needed. 60 tablet 0 escitalopram (LEXAPRO) 10 mg tablet Take 10 mg by mouth Daily. gabapentin (NEURONTIN) 300 mg capsule Take 600 mg by mouth 3 times daily. HYDROcodone-acetaminophen (NORCO) 10-325 mg per tablet Take 1-2 tablets by mouth every 4 hours as needed for Pain. 90 tablet 0 losartan (COZAAR) 25 mg tablet [...] Paternal Aunt INTERIM PHYSICAL EXAMINATION: Blood pressure 103/69, pulse 69, resp. rate 18, not currently . There is no we ight on file to calculate BMI. 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 This is improved from the preoperative exam. SENSORY EXAM: The sensory examination improved from the preoperative exam. REFLEXES: Reflexes are unchanged from her preoperative history and physical. RADIOGRAPHIC REVIEW: The patient s postoperative x-rays show stable instrumentation and alignment and were rev iewed with the patient today. There have been no interval changes since the immediate posto perative films. There has been increased arthrodesis since the patient s last x-ray which was also reviewed for comparison. ASSESSMENT: S/P ACDF C3-7: Encounter Diagnoses Name Primary? Cervical myelopathy Yes S/P cervical spinal fusion Chronic midline low back pain with right-sided sciatica Past Medical History Diagnosis Date High cholesterol Hypertension Neuropathy History of tobacco use PONV (postoperative nausea and vomiting) Wears dentures lower partial Sleep apnea no CPAP PLAN: Overall, the patient is doing fairly well. The patient's preoperative symptoms are improv ing at this point. I am concerned about the ongoing difficulty walking. I would like to asc ertain if this is from ongoing cervical pathology versus known lumbar stenosis. I have increased the patient s activities as of today, and I would like the patient to co ntinue to advance with activities as tolerated. I am hoping to see complete healing in the next 3-9 months time and will continue to follow the patient with x-rays. I hope sincerely that she continues to see further improvement in her symptoms over the course of her recover y. I will order MRI of the cervical spine and dynamic x-rays of the lumbar spine. She will undergo repeat x-ray of the neck in 3 and 9 months and follow-up with me after the MRI and lumbar x-rays are complete. We discussed the possibility of posterior cervical fusi on versus lumbar fusion if needed. All questions were answered. ELECTRONICALLY SIGNED BY: Jayme Blevins DO, 03/10/2016 9:47 documented in this encounter Plan of Treatment +--------+---------+ + + + | Date | Type | Specialty | Care Team | Description | +--------+---------+ + + + | 06/04/ | Office | Sleep Medicine | David Henriquez PA | | | 2020 | Visit | | [address] | | | | | | [place] | | | | | | [id number] | | | | | | | | +--------+---------+ + + + documented as of this encounter Results XR Cervical Spine 2 or 3 Views (10/29/2016 10:03 AM PDT) + + | Specimen | + + | | + + + + + | Narrative | Performed At | + + + | EXAM:XR CERVICAL SPINE 2 OR 3 VIEWS CLINICAL HISTORY: S/p | [facility] | | cervical fusion COMPARISON: Cervical spine radiographs dating to | [facility] | | December 04, 2015. FINDINGS: Anterior cervical discectomy and fusion | [facility] | | changes from C3 through C7. Intact hardware. No change in position | - IMAGING | | of the interbody grafts. Ongoing bony incorporation of the grafts. | | | No residual precervical soft tissue thickening. Prominent C7 | | | transverse processes. Bilateral carotid artery calcifications | | | bilaterally. IMPRESSION - No radiographic evidence for an | | | interval complication. Dictated and Signed by: Suraj Thayer MD | | | Electronically signed: 10/29/2016 11:00 AM | | + + + + + | Procedure Note | + + | Anthony, Rad Results In - 10/29/2016 11:03 AM PDT EXAM:XR CERVICAL SPINE 2 OR 3 VIEWS | | | | CLINICAL HISTORY: S/p cervical fusion | | | | COMPARISON: Cervical spine radiographs dating to December 04, 2015. | | | | FINDINGS: Anterior cervical discectomy and fusion changes from C3 through C7. | | Intact hardware. No change in position of the interbody grafts. Ongoing bony | | incorporation of the grafts. No residual precervical soft tissue thickening. | | Prominent C7 transverse processes. Bilateral carotid artery calcifications | | bilaterally. | | | | IMPRESSION - | | | | No radiographic evidence for an interval complication. | | | | Dictated and Signed by: Suraj Thayer MD | | Electronically signed: 10/29/2016 11:00 AM | + + + + + + + | Performing | Address | City/State/Zipcode | Phone Number | | Organization | | | | + + + + + | [facility] | [address] | [place] | [phone] | | [facility] | | [address] | | | - IMAGING | | | | + + + + + XR Lumbar Spine 4 + Vw (03/19/2016 12:16 PM PDT) + + | Specimen | + + | | + + + + + | Narrative | Performed At | + + + | EXAM: XR LUMBAR SPINE 4 + VW dated 03/19/2016 10:59 AM | [facility] | | HISTORY:Lumbago COMPARISON: Lumbar spine MRI dated 3 03/11/2016 | [facility] | | FINDINGS:5 views of the lumbar spine. 5 nonrib-bearing lumbar-type | MEDICAL CENTER | | vertebral bodies. There is no scoliosis. In the neutral lateral | - IMAGING | | position there is slight retrolisthesis of L4 and L5. Disc | | | narrowing is mild L4-L5 and moderate at L5-S1. Scattered marginal | | | osteophytes. Diffuse facet arthrosis. No compression deformities. | | | No abnormal translation with flexion or extension. Nonaneurysmal | | | calcification in the aorta. IMPRESSION - Lumbar spondylosis | | | predominating at L4-L5 and L5-S1. Spondylolisthesis of L4 and L5. | | | Dictated and Signed by: Suraj Thayer MD Electronically | | | signed: 03/19/2016 3:02 PM | | + + + + + | Procedure Note | + + | Anthony, Fredy Results In - 03/19/2016 3:06 PM PDT EXAM: XR LUMBAR SPINE 4 + VW dated | | 03/19/2016 10:59 AMHISTORY:LumbagoCOMPARISON: Lumbar spine MRI dated 3 03/11/2016FINDINGS:5 | | views of the lumbar spine. 5 nonrib-bearing lumbar-type vertebralbodies. There is no | | scoliosis. In the neutral lateral position there is slightretrolisthesis of L4 and L5. | | Disc narrowing is mild L4-L5 and moderate atL5-S1. Scattered marginal osteophytes. | | Diffuse facet arthrosis. Nocompression deformities. No abnormal translation with | | flexion or extension. Nonaneurysmal calcification in the aorta.IMPRESSION -Lumbar | | spondylosis predominating at L4-L5 and L5-S1.Spondylolisthesis of L4 and L5.Dictated and | | Signed by: Suraj Thayer MD Electronically signed: 03/19/2016 3:02 PM | |L5-S1. Scattered marginal osteophytes. Diffuse facet arthrosis. No | |compression deformities. No abnormal translation with flexion or extension. | |Nonaneurysmal calcification in the aorta. | | | |IMPRESSION - | | | |Lumbar spondylosis predominating at L4-L5 and L5-S1. | | | |Spondylolisthesis of L4 and L5. | | | |Dictated and Signed by: Suraj Thayer MD | | Electronically signed: 03/19/2016 3:02 PM | + + + + + + + | Performing | Address | City/State[facility] | Phone Number | | Organization | | | | + + + + + | [facility] | [address] | [place] | [phone] | | [facility] | | [address] | | | - IMAGING | | | | + + + + + XR Cervical Spine 2 or 3 Views (03/19/2016 12:15 PM PDT) + + | Specimen | + + | | + + + + + | Narrative | Performed At | + + + | EXAM: XR CERVICAL SPINE 2 OR 3 VIEWS dated 03/19/2016 11:08 AM [facility] | | HISTORY:S/p cervical fusion COMPARISON: Cervical spine radiographs | [facility] | | dating to 10/23/2015 FINDINGS:Frontal and lateral views of the [facility] | | cervical spine. Anterior cervical discectomy [...] + + | Performing | Address | City/State[facility] | Phone Number | | Organization | | | | + + + + + | [facility] | [address] | [place] | [phone] | | [facility] | | [address] | | | - IMAGING | | | | + + + + + MRI Cervical Spine wo Contrast (03/19/2016 12:10 PM PDT) + + | Specimen | + + | | + + + + + | Narrative | Performed At | + + + | UNENHANCED MRI CERVICAL SPINE 03/19/2016 11:28 AM CLINICAL | [facility] | | HISTORY: Cervical myelopathy COMPARISON: Cervical MRI October [facility] | | 3, cervical radiographs January 28 and multiple previous radiographs | [facility] | | TECHNIQUE: The following 3T MR sequences of the cervical spine were | - IMAGING | | obtained: 1. Sagittal, axial and coronal T1. 2. Axial and | | | sagittal T2. 3. Axial GRE. 4. Sagittal STIR. FINDINGS: | | | Artifact from previously noted ACDF hardware extends from C3 through | | | C7. There is no conclusive evidence of fracture or subluxation. | | | Imaged contents of the posterior fossa and foramen magnum are | | | unremarkable. There is localized myelomalacia at the C4-5 level, | | | with asymmetric increased T2/STIR signal in the right paramedian and | | | right lateral aspects of the cord. This is increased in conspicuity | | | from previous imaging. The cervical and imaged upper thoracic | | | spinal cord otherwise demonstrates normal intrinsic signal intensity | | | and caliber. Low signal ligamentous hypertrophy is again visible | | | about the anterior C1-2 articulation, again contributing to mild | | | central canal stenosis at this level, as visualized on the provided | | | sagittal images through the region. The craniocervical junction is | | | unremarkable. The C2-3 level is unremarkable. Vertebral | | | osteophytes at the operated C3-4 and C5-6 levels mildly narrow the | | | right and left neural foramina, respectively. There is no central | | | canal stenosis. No residual stenosis is evident at the operated | | | C4-5 or C6-7 levels. The C7-T1 level demonstrates facet | | | hypertrophy without disc pathology or significant stenosis. Facet | | | hypertrophy is present asymmetrically on the right in the imaged | | | upper thoracic spine, mild to moderately narrowing several neural | | | foramina on provided sagittal images through the region. | | | IMPRESSION - 1. LOCALIZED MYELOMALACIA AND RIGHT SIDED CORD SIGNAL | | | ALTERATION AT C4-5, A RESULT OF PREVIOUSLY VISIBLE COMPRESSIVE | | | MYELOPATHY. 2. NO SIGNIFICANT RESIDUAL STENOSIS STATUS POST ACDF | | | EXTENDING FROM C3 THROUGH C7. 3. ASYMMETRIC MILD TO MODERATE | | | NEUROFORAMINAL STENOSIS IN THE IMAGED UPPER THORACIC SPINE A | | | RESULT OF FACET HYPERTROPHY. Dictated and Signed by: Zeus Rodríguez MD Electronically signed: 03/19/2016 12:23 PM | | + + + + + | Procedure Note | + + | Anthony, Rad Results In - 03/19/2016 12:26 PM PDT UNENHANCED MRI CERVICAL SPINE 03/19/2016 | | 11:28 AMCLINICAL HISTORY: Cervical myelopathy COMPARISON: Cervical MRI October 10, | | cervical radiographs January 28 and multipleprevious radiographsTECHNIQUE: The following | | 3T MR sequences of the cervical spine were obtained:1. Sagittal, axial and coronal | | T1.2. Axial and sagittal T2.3. Axial GRE.4. Sagittal STIR.FINDINGS: Artifact from | | previously noted ACDF hardware extends from C3 throughC7. There is no conclusive | | evidence of fracture or subluxation. Imagedcontents of the posterior fossa and foramen | | magnum are unremarkable. There islocalized myelomalacia at the C4-5 level, with | | asymmetric increased T2/STIRsignal in the right paramedian and right lateral aspects of | | the cord. This isincreased in conspicuity from previous imaging. The cervical and | | imaged upperthoracic spinal cord otherwise demonstrates normal intrinsic signal | | intensityand caliber.Low signal ligamentous hypertrophy is again visible about the | | anterior C1-2articulation, again contributing to mild central canal stenosis at this | | level,as visualized on the provided sagittal images through the region. | | Thecraniocervical junction is unremarkable.The C2-3 level is unremarkable.Vertebral | | osteophytes at the operated C3-4 and C5-6 levels mildly narrow theright and left neural | | foramina, respectively. There is no central canalstenosis.No residual stenosis is | | evident at the operated C4-5 or C6-7 levels.The C7-T1 level demonstrates facet | | hypertrophy without disc pathology orsignificant stenosis.Facet hypertrophy is present | | asymmetrically on the right in the imaged upperthoracic spine, mild to moderately | | narrowing several neural foramina on providedsagittal images through the | | region.IMPRESSION -1. LOCALIZED MYELOMALACIA AND RIGHT SIDED CORD SIGNAL ALTERATION AT | | C4-5, ARESULT OF PREVIOUSLY VISIBLE COMPRESSIVE MYELOPATHY.2. NO SIGNIFICANT | | RESIDUAL STENOSIS STATUS POST ACDF EXTENDING FROM C3 THROUGHC7.3. ASYMMETRIC MILD TO | | MODERATE NEUROFORAMINAL STENOSIS IN THE IMAGED UPPERTHORACIC SPINE A RESULT OF FACET | | HYPERTROPHY.Dictated and Signed by: Usama Cummings MD Electronically signed: 03/19/2016 | | 12:23 PM | |The C2-3 level is unremarkable. | | | |Vertebral osteophytes at the operated C3-4 and C5-6 levels mildly narrow the | |right and left neural foramina, respectively. There is no central canal | |stenosis. | | | |No residual stenosis is evident at the operated C4-5 or C6-7 levels. | | | |The C7-T1 level demonstrates facet hypertrophy without disc pathology or | |significant stenosis. | | | |Facet hypertrophy is present asymmetrically on the right in the imaged upper | |thoracic spine, mild to moderately narrowing several neural foramina on provided | |sagittal images through the region. | | | |IMPRESSION - | |1. LOCALIZED MYELOMALACIA AND RIGHT SIDED CORD SIGNAL ALTERATION AT C4-5, A | |RESULT OF PREVIOUSLY VISIBLE COMPRESSIVE MYELOPATHY. | | | |2. NO SIGNIFICANT RESIDUAL STENOSIS STATUS POST ACDF EXTENDING FROM C3 THROUGH | |C7. | | | |3. ASYMMETRIC MILD TO MODERATE NEUROFORAMINAL STENOSIS IN THE IMAGED UPPER | |THORACIC SPINE A RESULT OF FACET HYPERTROPHY. | | | |Dictated and Signed by: Usama Cummings MD | | Electronically signed: 03/19/2016 12:23 PM | + + + + + + + | Performing | Address | City/State/Zipcode | Phone Number | | Organization | | | | + + + + + | [facility] | [address] | [place] | [phone] | | [facility] | | [address] | | | - IMAGING | | | | + + + + + documented in this encounter Visit Diagnoses + + | Diagnosis | + + | Cervical myelopathy (HCC) - Primary Cervical spondylosis with myelopathy | + + | S/P cervical spinal fusion Arthrodesis status | + + | Chronic midline low back pain with right-sided sciatica | + + documented in this encounter"
--- OUTSIDE RECORDS SUMMARY | ~2020-03-15 | XMS | Encounter Summary ---
Demographics + + + | Address | [address] | | | [place] [address] | + + + | Home Phone | | + + + | Preferred Language | Unknown | + + + | Marital Status | | + + + | Christian Affiliation | Unknown | + + + | Race | Unknown | + + + | Ethnic Group | Unknown | + + + Author + + + | Author | [facility] | | | and Scout | + + + | Organization | [facility] | | | and [place] | + + + | Address | Unknown | + + + | Phone | Unavailable | + + + Support + + + + + | Name | Relationship | Address | Phone | + + + + + | Kendall MUNSON | [address] | | | | | [place] [address] | | + + + + + Care Team Providers + +------+ + | Care Hardware Supplies Sales Representative Name | Role | Phone | + +------+ + | Don Morin MD | PCP | | + +------+ + Encounter Details +--------+ + + + + | Date | Type | Department | Care Team | Description | +--------+ + + + + | 10/16/ | Hospital | [facility] | Jayme Blevins, | | | 2016 | Encounter | MED [facility] XRAY [address] | DO [address] | | | | | [place] | [address] | | | | | [place] [address] | [address] | | | | | [phone] | | | | | | | Martin Bain | | | | | | MD [place] [address] | | | | | | [address] | | | | | | [place] [address] | | | | | | [phone] | | | | | | | [...] by mouth | | 0 | | 03/22/201 | | 25 mg tablet | Daily. [...] 2020 | Visit | | [address] | | | | | | [place] | | | | | | [address] | | | | | | | | +--------+---------+ + + + documented as of this encounter Procedures + +--------+ + + + | Procedure Name | Priori | Date/Time | Associated Diagnosis | Comments | | | ty | | | | + +--------+ + + + | XR CHEST PA AND | Routin | 10/17/2015 | High cholesterol | Results for this | | LATERAL | e | 1:05 PM | Essential | procedure are in the | | | | PST | hypertension | results section. | | | | | Neuropathy History | | | | | | of tobacco use | | + +--------+ + + + documented in this encounter Results XR Chest PA and [...] + + | [facility] | [address] | [place] | [phone] | | [facility] | | [address] | | | - IMAGING | | | | + + + + + documented in this encounter Visit Diagnoses Not on filedocumented in this encounter"
--- OUTSIDE RECORDS SUMMARY | ~2020-03-15 | XMS | Encounter Summary ---
Demographics + + + | Address | [address] | | | [place] [address] | + + + | Home Phone | | + + + | Preferred Language | Unknown | + + + | Marital Status | | + + + | Baptism Affiliation | Unknown | + + + | Race | Unknown | + + + | Ethnic Group | Unknown | + + + Author + + + | Author | [facility] | | | and Scout | + + + | Organization | [facility] | | | and [place] | + + + | Address | Unknown | + + + | Phone | Unavailable | + + + Support + + + + + | Name | Relationship | Address | Phone | + + + + + | Kendall MUNSON | [address] | | | | | [place] [address] | | + + + + + Care Team Providers + +------+ + | Care Electrical Maintenance Worker Name | Role | Phone | + +------+ + | Don Morin MD | PCP | | + +------+ + Reason for Visit + + + | Reason | Comments | + + + | Follow-up | 5w PO | + + + Encounter Details +--------+---------+ + + + | Date | Type | Department | Care Team | Description | +--------+---------+ + + + | 12/03/ | Office | [facility] | Alex Sandra, | Cervicalgia (Primary | | 2016 | Visit | NEUROSURGERY [address] | PA-C [address] | Dx) | | | | [address] | [address] [place] | | | | | [place], [place] | [place] [address] | | | | | [address] | [phone] | | | | | [phone] | | | +--------+---------+ + + + [...] | + +---+---+---+ + + | 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: 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 half after [...] + + + | Blood Pressure | 99/68 | 12/04/2015 2:03 PM | | | | | PDT | | + + + + + | Pulse | 86 | 12/04/2015 2:03 PM | | | | | PDT | | + + + + + | Temperature | - | - | | + + + + + | Respiratory Rate | 18 | 12/04/2015 2:03 PM | | | | | PDT | | + + + + + | Oxygen Saturation | - | - | | + + + + + | Inhaled Oxygen | - | - | | | Concentration | | | | + + + + + | Weight | 82.1 kg (181 lb) | 12/04/2015 2:03 PM | | | | | PDT | | + + + + + | Height | 157.5 cm (5' 2") | 12/04/2015 2:03 PM | | | | | PDT | | + + + + + | Body Mass Index | 33.11 | 12/04/2015 2:03 PM | | | | | PDT [...] Instructions Patient Instructions Alex Sandra PA - 12/05/2015 8:41 PM PDTYou may now slowly incr ease your lifting up to 15 pounds as tolerated. We will hold off on PT at this time. Lastl y, you will see Dr. Blevins in approximately 2 months where a new x-ray will be taken at that time. In the meantime, you can also begin to wean out of your brace as instructed below. Ho rex please do not start this for another 4 weeks. SPINE BRACE WEANING PROTOCOL (5 WEEKS) Below are instructions for weaning your brace. You can move through the weeks slower if yo u feel the need to do so, but the overall goal is to get you out of the brace slowly over th e next several weeks. WEEK 1 If you have been using your brace for activities like sleeping, showering, do not use the b race for these activities any longer but continue using it for everything else. WEEK 2 Stop wearing your brace for sitting and short distance walking. You should use the brace f or anything more involved. WEEK 3 Stop using the brace for medium distance walking. You can bend and twist your back but sti ll proceed slowly with these activities. WEEK 4 Stop using the brace for everything but the most difficult tasks. You should now be able to go on long walks and lift more weight as directed. Add more bending and twisting as tolera oliver. WEEK 5 Stop using the brace for daily use. I would encourage you to use the brace in the future f or activities that you know might aggravate your back or cause pain. You should still work to strengthen your back and use good technique when pear picker things and bending. documented in this encounter Progress Notes Alex Sandra PA - 12/04/2015 5:08 PM PDTFormatting of this note might be different f rom the original. ORLANDO Rivera [address] [facility], [address] [place] [address] FAX: NEUROSURGERY FOLLOW-UP CHIEF COMPLAINT: Chief Complaint Patient presents with Follow-up 5w PO HISTORY OF PRESENT ILLNESS: The patient is a 60 y.o. female that had a cervical fusion for neck pain and arm pain around 4 weeks ago. She returns and overall is doing good. The pat ient complains of ongoing but improving pain that is primarily present in her neck muscles i n the back.. The patient has been walking as much as directed. She is still taking pain m edications at this point. The patient has had no issues with [...] as needed for Pain. 120 tablet 0 Lactulose SOLN Take 30 mLs by mouth every 6 hours as needed (Constipation). 240 mL 1 losartan (COZAAR) 25 mg tablet Take 25 [...] illicit drugs. INTERIM PHYSICAL EXAMINATION: Blood pressure 99/68, pulse 86, resp. rate 18, height 1.575 m (5' 2"), weight 82.101 kg (18 1 lb), not currently . Body mass index is 33.1 kg/(m^2). GENERAL: Ana Wells is in no acute distress with unlabored respirations. SPINE: The patient s incisions are healing well without drainage, significant erythema, o r discharge. EXTREMITIES: No lower extremity edema. NEUROLOGICAL EXAMINATION: MENTAL STATUS: The patient is awake, alert, and oriented. She follows simple and complex commands MOTOR EXAM: Motor strength is4+to 5/5. This is improved when compared to the preoperative exam. SENSORY EXAM: The sensory examination is improved when compared to the preoperative exam. RADIOGRAPHIC REVIEW: The patient s x-rays show stable instrumentation and alignment and were reviewed with the patient today. There have been no interval changes since the immediate postoperative films . Complete fusion has not yet occurred, but this is normal and would not be expected at thi s time. ASSESSMENT: Encounter Diagnosis Name Primary? Cervicalgia Yes Past Medical History Diagnosis Date High cholesterol Hypertension Neuropathy History of tobacco use PONV (postoperative nausea and vomiting) Wears dentures lower partial Sleep apnea no CPAP PLAN: Overall, the patient is doing well. The patient can see some improvements but continues to recover from recent surgery. At todays visit I asked that she transition to a B Brace stat us. She will remain in this status for 4 weeks. At this time I will allow her to begin the 5 weeks brace weaning protocol. I increased the patient s activities now allowing 15 pound lifting. The patient and also will begin the process of brace weaning. I would like the patient to advance slowly with t his process and discussed this at length during today's visit. I would also like the patien t to continue with postoperative rehabilitation and to advance with therapy as tolerated. We discussed that we can provide pain medications for up to two additional months. We disc ussed the need to continue tapering pain medication. If they need longer term pain medicati on, they should begin working on either pain management or with the primary care provider. I am hoping to see improvement over the coming weeks to months and plan to continue to foll ow this patient. The patient will follow-up in clinic in around 8 weeks for re-evaluation. ELECTRONICALLY SIGNED BY: ORLANDO Rivera, 12/04/2015 17:09 documented in this encounter Plan of Treatment +--------+---------+ + + + | Date | Type | Specialty | Care Team | Description | +--------+---------+ + + + | 06/04/ | Office | Sleep Medicine | David Henriquez PA | | | 2019 | Visit | | [address] | | | | | | [place] | | | | | | [id number] | | | | | | | | +--------+---------+ + + + documented as of this encounter Visit Diagnoses + + | Diagnosis | + + | Cervicalgia - Primary | + + documented in this encounter
--- OUTSIDE RECORDS SUMMARY | ~2020-03-15 | XMS | Encounter Summary ---
Demographics + + + | Address | [address] | | | [place] [address] | + + + | Home Phone | | + + + | Preferred Language | Unknown | + + + | Marital Status | | + + + | Protestant Affiliation | Unknown | + + + | Race | Unknown | + + + | Ethnic Group | Unknown | + + + Author + + + | Author | [facility] | | | and Scout | + + + | Organization | [facility] | | | and [place] | + + + | Address | Unknown | + + + | Phone | Unavailable | + + + Support + + + + + | Name | Relationship | Address | Phone | + + + + + | Kendall MUNSON | [address] | | | | | [place] [address] | | + + + + + Care Team Providers + +------+ + | Care Family Reunification Specialist Name | Role | Phone | + +------+ + | Rex Umanzor MD | PCP | | + +------+ + Reason for Visit + + + | Reason | Comments | + + + | CPAP Follow Up | Sleep Resource | + + + Encounter Details +--------+ + + + + | Date | Type | Department | Care Team | Description | +--------+ + + + + | 11/27/ | Clinical | [facility] | Warner Galdamez | PRISCILLA (obstructive | | 2017 | Support | SLEEP DISORDER [address] | MD Jovanna [address] | sleep apnea) | | | | [address] [place] | [address] [place] | (Primary Dx) | | | | [place] [address] | [place] [address] | | | | | [phone] | [phone] | | | | | | | [...] + + + | Blood Pressure | 122/72 | 11/27/2016 2:05 PM | | | | | PDT | | + + + + + | Pulse | 88 | 11/27/2016 2:05 PM | | | | | PDT | | + + + + + | Temperature | - | - | | + + + + + | Respiratory Rate | 14 | 11/27/2016 2:05 PM | | | | | PDT | | + + + + + | Oxygen Saturation | 96% | 11/27/2016 2:05 PM | | | | | PDT | | + + + + + | Inhaled Oxygen | - | - | | | Concentration | | | | + + + + + | Weight | 78.5 kg (173 lb) | 11/27/2016 2:05 PM | | | | | PDT | | + + + + + | Height | 157.5 cm (5' 2") | 11/27/2016 2:05 PM | | | | | PDT | | + + + + + | Body Mass Index | 31.64 | 11/27/2016 2:05 PM | | | [...] documented as of this encounter Progress Notes Jon Pacheco Neurodiagnostic Tech - 11/27/2016 2:43 PM PDTFormatting of this note migh t be different from the original. Clinical Sleep Support Visit Patient:Ana Wells Date of :1955 Encounter Date: 11/27/2016 Reason for visit: Chief Complaint Patient presents with CPAP Follow Up Sleep Resource Patient was last seen in our clinic on 11/20/[address] Galdamez, referred to us by Dr. Adry richardson . PAP was ordered on 11/20/2016 from [facility]. Patient has been using PAP for 7 out of 7 nights, wearing the ResMed S-10 auto PAP with settings of 4 to 20, wearing the Full Fa ce mask. ~ Vital signs were: BP 122/72 mmHg | Pulse 88 | Resp 14 | Ht 1.575 m (5' 2") | Wt 78.472 kg (173 lb) | BMI 31.63 kg/m2 | SpO2 96% ~ Patient is doing good, she has a full face mask and could possibly not need one. We talke d about other available types, tried a nasal pillows and she loved them. She is going to inv estigate getting a P-10. Her current mask leaks and was adjusted although application was go od. She admitted to feeling better and sleeping better and has been told she seems better by her spouse. ~ Overall leak is 28.8-62.4 ~ Compliance >4 hours =100% with AHI of 1.6 ~ Average daily usage of 7:19 Original date of study was on 11/04/2016 that showed an AHI of 68.8 with a O2 Harshal of 84% w ith 91.1 minutes < 90%. Sleep hygiene reviewed with the patient included sleep wake times, compliance use, study re sults and benefits of wearing PAP Plan for continuous PAP use: 1. Wear PAP any time you are sleeping 2. Continue with PAP indefinitely 3. Follow up with David PERRY in 2 weeks with equipment Jon Pacheco RPSGT CSE doc umented in this encounter Plan of Treatment +--------+---------+ + + + | Date | Type | Specialty | Care Team | Description | +--------+---------+ + + + | 06/04/ | Office | Sleep Medicine | David Henriquez PA | | | 2019 | Visit | | [address] | | | | | | [place] | | | | | | [phone] | | | | | | | | +--------+---------+ + + + documented as of this encounter Visit Diagnoses + + | Diagnosis | + + | PRISCILLA (obstructive sleep apnea) - Primary Obstructive sleep apnea (adult) (pediatric) | + + documented in this encounter
--- OUTSIDE RECORDS SUMMARY | ~2020-03-15 | XMS | Encounter Summary ---
Demographics + + + | Address | [address] | | | [place] [address] | + + + | Home Phone | | + + + | Preferred Language | Unknown | + + + | Marital Status | | + + + | Scientology Affiliation | Unknown | + + + | Race | Unknown | + + + | Ethnic Group | Unknown | + + + Author + + + | Author | [facility] | | | and Scout | + + + | Organization | [facility] | | | and [place] | + + + | Address | Unknown | + + + | Phone | Unavailable | + + + Support + + + + + | Name | Relationship | Address | Phone | + + + + + | Kendall MUNSON | [address] | | | | | [place] [address] | | + + + + + Care Team Providers + +------+ + | Care Sales Trader Name | Role | Phone | + +------+ + | Don Morin MD | PCP | | + +------+ + Encounter Details +--------+ + + + + | Date | Type | Department | Care Team | Description | +--------+ + + + + | 10/16/ | Preadmit | [facility] | Jayme Blevins, | High cholesterol; | | 2016 | Visit | [facility] | DO [address] | Essential | | | | CLINIC [address] | [address] | hypertension; | | | | [place] | [address] | Neuropathy; History | | | | [address] | | of tobacco use | | | | [phone] | | | +--------+ + + + [...] 06/04/ | Office | Sleep Medicine | [place], David D, PA | | | 2020 | Visit | | [address] | | | | | | [place] | | | | | | [address] | | | | | | | [...] | + +--------+ + + + | PTT | Routin | 10/17/2015 | High cholesterol | Results for this | | | e | 12:45 PM | Essential | procedure are in the | | | | PST | hypertension | results section. | | | | | Neuropathy History | | | | | | of tobacco use | | + +--------+ + + + | PROTIME INR | Routin | 10/17/2015 | High cholesterol | Results for this | | | e | 12:45 PM | Essential | procedure are in the | | | | PST | hypertension | results section. | | | | | Neuropathy History | | | | | | of tobacco use | | + +--------+ + + + | CBC WITH | Routin | 10/17/2015 | High cholesterol | Results for this | | DIFFERENTIAL | e | 12:45 PM | Essential | procedure are in the | | | | PST | hypertension | results section. | | | | | Neuropathy History | | | | | | of tobacco use | | + +--------+ + + + | BASIC METABOLIC | Routin | 10/17/2015 | High cholesterol | Results for this | | PANEL | e | 12:45 PM | Essential | procedure are in the | | | | PST | hypertension | results section. | | | | | Neuropathy History | | | | | | of tobacco use | | + +--------+ + + + | CULTURE, MRSA | Routin | 10/17/2015 | | Results for this | | | e | 12:44 PM | | procedure are in the | | | | PST | | results section. | + +--------+ + + + | ECG 12 LEAD | Routin | 10/17/2015 | High cholesterol | Results for this | | | e | 12:41 PM | Essential | procedure are in [...] + | Fredy Cruz Results In - 10/17/2015 1:43 PM PST [...] + | [facility] | [address] | [place] | [phone] | | [facility] | | [address] | | | - IMAGING | | [...] | | | | | mmol/L | [facility] | | | | [...] 12 | 7 - 18 mg/dL | [facility] | | | | | | [facility] | | | | | | MEDICAL | | | | | | CENTER - | | | | | | LABORATORY | | + + + + + + | Creatinine | 0.76 | 0.60 - 1.30 | [facility] | | | | | mg/dL | [facility] | | | | | | MEDICAL | | | | | | CENTER - | | | | | | LABORATORY | | + + + + + + | eGFR, | >60Comment: GLOMERULAR | >=60 | [facility] | | | non- | FILTRATION | mL/min/1.73m2 | [facility] | | | Bangladeshi | RATE,ESTIMATED | | MEDICAL | | | | mL/min/1.73u7Vuht than | | CENTER - | | [...] | ine Ratio | | | [facility] | | [...] + + | [facility] | [address] | [place] | [phone] | | [facility] | | [address] | | | - LABORATORY | | | | + + + + + PTT (10/17/2015 12:45 PM PST) + +-------+ + + + | Component | Value | Ref Range | Performed | Pathologist | | | | | At | Signature | + +-------+ + + + | aPTT | 27 | 22 - 36 seconds | [facility] | | | | | | ST[facility] [...] + + | [facility] | [address] | [place] | [phone] | | [facility] | | [address] | | | - LABORATORY | | [...] | Time | | seconds | [facility] | | | | [...] + + | [facility] | [address] | [place], [place] | [phone] | | [facility] | | [address] | | | - LABORATORY | | [...] | | | Cells | | | [facility] | | [...] | | Neutrophils | | K/uL | [facility] | | | | | | MEDICAL | | | | | | CENTER - | | | | | | LABORATORY | | + +-------+ + + + | Absolute | 2.60 | 0.60 - 3.20 | [facility] | | | Lymphocytes | | K/uL | [facility] | | | | | | MEDICAL | | | | | | CENTER - | | | | | | LABORATORY | | + +-------+ + + + | Absolute | 0.80 | 0.00 - 1.00 | [facility] | | | Monocytes | | K/uL | [facility] | [...] + | [facility] | [address] | [place], [place] | [phone] | | [facility] | | [address] | | | - LABORATORY | | | | + + + + + Culture, MRSA (10/17/2015 12:44 PM PST) + + + + + + | Component | Value | Ref Range | Performed | Pathologist | | | | | At | Signature | + + + + + + | Culture | Negative for MRSA by | | [facility] | | | | chromogenic agar method | | [facility] | | | | | | MEDICAL | | | | | | CENTER - | | | | | | LABORATORY | | + + + + + + + + | Specimen | + + | Respiratory - Both | | anterior nares (body | | structure) | + + + + + + + | Performing | Address | City/State/Zipcode | Phone Number | | Organization | | | | + + + + + | [facility] | [address] | [place] | [phone] | | [facility] | | [address] | | | - LABORATORY | | [...] MD | | | | | | ([id number]) on 10/17/2015 | | | | | [...] Diagnosis | + + | High cholesterol Pure hypercholesterolemia | + + | Essential hypertension Unspecified essential hypertension | + + | Neuropathy Mononeuritis of unspecified site | + + | History of tobacco use Personal history of tobacco use, presenting hazards to health | + + documented in this encounter"
--- OUTSIDE RECORDS SUMMARY | ~2020-03-15 | XMS | Encounter Summary ---
Demographics + + + | Address | [address] | | | [place] [address] | + + + | Home Phone | | + + + | Preferred Language | Unknown | + + + | Marital Status | | + + + | Taoist Affiliation | Unknown | + + + | Race | Unknown | + + + | Ethnic Group | Unknown | + + + Author + + + | Author | [facility] | | | and Scout | + + + | Organization | [facility] | | | and [place] | + + + | Address | Unknown | + + + | Phone | Unavailable | + + + Support + + + + + | Name | Relationship | Address | Phone | + + + + + | Kendall MUNSON | [address] | | | | | [place] [address] | | + + + + + Care Team Providers + +------+ + | Care Lamp Cleaner Street Light Name | Role | Phone | + [...] Medicine | PRISCILLA | Warner Balderas | [place] [address] | | | Required | | (obstructive | MD [address] [place] | | | | | sleep | [place] | [place], | | | | | apnea) | [place] | [place] [address] | | | | | Procedures | [place], [place] | Phone: | | | | | [place] [facility] | [address] | [phone] | | | | | STUDY, | Phone: | Fax: | | | | | UNATTENDED, | [phone] | [phone] | | | | | SIMUL RECORD | Fax: | | | | | | HR/O2 | [phone] | | | | | | SAT/RESP | | | | | | | FLOW/RESP | | | | | | | EFF HST | | | +--------+ + + + + + Reason for Visit +---------+ + | Reason | Comments | +---------+ + | Consult | | +---------+ + | Snoring | | +---------+ + Evaluate & Treat (Routine) +--------+--------+ + + + + | Status | Reason | Specialty | Diagnoses / | Referred By | Referred To | | | | | Procedures | Contact | Contact | +--------+--------+ + + + + | Closed | | Internal | Diagnoses | Erna, | Rudolph, | | | | Medicine - | Obstructive | Rex Oliva, | Warner Balderas | | | | Sleep | sleep apnea | [address] | [address] | | | Medicine / | (adult) | [address] | [place] | | | | Sleep | (pediatric) | [place], | [place] | | | | Medicine | CONSULT YRS | [place] [address] | [place] | | | | | AGO NO CPAP | Phone: | [phone] Phone: | | | | | [address] | [phone] | [phone] | | | | | Procedures | Fax: | Fax: | | | | | NEW PATIENT | [phone] | [phone] | +--------+--------+ + + + + Encounter Details +--------+---------+ + + + | Date | Type | Department | Care Team | Description | +--------+---------+ + + + | 10/29/ | Office | [facility] | Warner Galdamez | PRISCILLA (obstructive | | 2017 | Visit | SLEEP DISORDER [address] | MD [address] | sleep apnea) | | | | [address] [place] | [address] [place] | (Primary Dx); | | | | [place] [address] | [place] [address] | Restless legs | | | | [phone] | [phone] | syndrome; Cervical | | | | | | disc disease | +--------+---------+ + + + Social History [...] + + + | Blood Pressure | 104/68 | 10/29/2016 10:43 AM | | | | | PDT | | + + + + + | Pulse | 81 | 10/29/2016 10:43 AM | | | | | PDT | | + + + + + | Temperature | - | - | | + + + + + | Respiratory Rate | 14 | 10/29/2016 10:43 AM | | | | | PDT | | + + + + + | Oxygen Saturation | 98% | 10/29/2016 10:43 AM | | | | | PDT | | + + + + + | Inhaled Oxygen | - | - | | | Concentration | | | | + + + + + | Weight | 77.6 kg (171 lb) | 10/29/2016 10:43 AM | | | | | PDT | | + + + + + | Height | 158.8 cm (5' 2.5") | 10/29/2016 10:43 AM | | | | | PDT | | + + + + + | Body Mass Index | 30.78 | 10/29/2016 10:43 AM | | | [...] Patient Instructions Warner Galdamez Jr., MD - 10/29/2016 11:30 AM PDT Restless Legs Syndrome: What You Can Do Symptoms of restless leg syndrome (RLS) can be treated. Together, you and your health care provider can work on your treatment plan. If needed, medications may be prescribed. Also joy rn what you can do to ease your discomfort. Good sleep habits and a healthy lifestyle will h elp you rest better at night and have more energy during the day. Working with your health care provider RLS may occur on its own and may be passed on in families. It is sometimes linked to other medical problems. Lowiron may cause some RLS symptoms. Your health care provider may order a lab test to check your iron level. Other medical problems associated with RLS are kidney disease, diabetes, and multiple sclerosis. Your doctor mayprescribe medications to reduce your symptoms and help you sleep better. Tips for temporary relief To reduce your discomfort, try the following: Walking or stretching Rubbing your legs Having a massage Taking a hot or cold bath Doing activities that make muscles in your hands or legs work Relaxing with yoga or meditation Good sleep habits Even though you have RLS, you can still have restful sleep. Try these good sleeping habits: Keep a regular sleep schedule. Go to bed and get up at the same time each day. Avoid or limit naps. Make sure the bedroom is quiet, dark, and not too hot or too cold. Use your bed only for sleep and sex. Healthy lifestyle Your lifestyle affects your health and your sleep. Here are some healthy habits: Eat a balanced diet. To get enough vitamins and minerals, you may also need to take supp lements. Manage stress and learn ways to relax. Deep breathing techniques and visualization can h elp to relax your muscles and calm your mind. Exercise regularly. It can help reduce stress. Also, you will have more energy during th e day and be more tired at bedtime. Afternoon exercise is best. Nighttime exercise may affec t how well you sleep. Avoid alcohol, nicotine, and caffeine. Date Last Reviewed: 01/14/201519991251-[address] [place] [address], [place] [address]. All righ ts reserved. This information is not intended as a substitute for professional medical care. Always follow your healthcare professional's instructions. documented in this encounter Progress Notes Warner Galdamez Jr., MD - 10/29/2016 11:04 AM PDTFormatting of this note might be differen t from the original. Tasha Davis [facility] [place] [address] Ref: Rex Umanzor MD CC: Chief Complaint Patient presents with Consult Snoring History of the Present Illness:This is a 61 year old female who is referred for sleep medic ine consultation by Dr. Urban Umanzor because of Obstructive Sleep Apnea. Other significant me dical issues include HBP, Cervical myelopathy requiring cervical spine surgery (10/23/2015). The patient's records ([facility] EMR, Dr. Umanzor's notes, [facility] records) are review ed. The patient is interviewed and examined. I first saw this patient on February 27, 2004 on r eferral from Dr. Denney weekly. Polysomnography performed on December 04, 2003 demonstrated a l atency to sleep onset of 25 minutes. The sleep efficiency was 86.1%. All stages of sleep a re noted. The latency to rapid eye movement sleep was 218 minutes. Mild obstructive sleep apnea was noted with an Apnea Hypopnea Index index of 17.7. The lowest oxygen saturation re corded as 88.2%. CPAP titration revealed that CPAP of 9 cm control apnea but she required a fullface mask at that time. She didn't wear the CPAP for very long. She had sinus surgery s hortly thereafter which helped some. Bedtime is now about 10pm and rise time is about 7am. She usually reads for an hour and the n falls asleep. She has nocturia once at night. She denies night sweats and she denies noctu rnal heartburn. She can frequently awaken with nasal/sinus congestion. She rarely awakens wi th a dry mouth. She rarely awakens with morning headaches. Once asleep she tosses and turns and awakens frequently at night which she attributes to neck pain. She dreams infrequently. She denies hypnagogic hallucinations. She isn't a sleep walker. Sh e denies dream enactment while asleep. She denies sleep paralysis. She has very bad restlessness in her legs at night at bedtime. Her states that her legs kick and twitch rhythmically at night after she falls asleep. She gets the restlessness in the daytime too if she rests. It is a bit worse at night. She often has to get up and wa lk around to make this better. She doesn't think that she has ever had anemia or low iron le vels. She is on gabapentin but she doesn't think this makes the restlessness better (althoug h it does help with numbness in her right hand). Her has told her that she snores loudly every night and stops breathing many times every night. She isn't actually aware this is going on except that he has told her; but she has awakened herself snorting and snoring in the past. In the daytime she feels fatigued and tired all of the time. She tries not to nap. She does n't fall asleep driving. She denies cataplexy. She consumes about 3 cups of coffee a day. Past Medical History: has a past medical history of High cholesterol; Hypertension; Neurop athy (HCC); History of tobacco use; PONV (postoperative nausea and vomiting); Wears dentures ; PRISCILLA (obstructive sleep apnea); Cervical disc disease; and Restless legs syndrome. has past surgical history that includes Hysterectomy; Tonsillectomy; Cholecystectomy; Carp al tunnel release (Bilateral); cyst excision; rectal fistula; Cervical spine surgery (N/A, ); sinus surgery (2005); and right shoulder repair (2015). No Known Allergies Current Outpatient Prescriptions Medication Sig Dispense Refill DULoxetine (IRENKA) [address] capsule Take 40 mg by mouth Daily. gabapentin (NEURONTIN) 300 mg capsule Take 900 mg by mouth 3 times daily. losartan-hydrochlorothiazide (HYZAAR) 100-25 MG per tablet Take 1 tablet by mouth Daily . Multiple Vitamins-Minerals (WOMENS MULTIVITAMIN PLUS PO) Take 1 tablet by mouth Daily. simvastatin (ZOCOR) 40 mg tablet Take 20 mg by mouth nightly. No current facility-administered medications for this visit. Past Surgical History Procedure Laterality Date Hysterectomy Tonsillectomy Cholecystectomy Carpal tunnel release Bilateral Cyst excision anal Rectal fistula repaired Cervical spine surgery N/A 10/23/2015 Procedure: C3-4, C4-5, C5-6, C6-7 Anterior Cervical Discectomy w/ Fusion and Plating; Pinedo rgeon: Jayme Blevins DO; Location: [facility] OR Sinus surgery 2005 Right shoulder repair 2015 Family Medical History: family history includes Breast cancer in her paternal aunt; Cancer in an other family member; Heart attack in her father; Hypertension in an other family geena bunn indicated that her mother is alive. She indicated that her father is . She indicate d that both of her brothers are alive. She indicated that both of her sons are alive. She in dicated that both of her pedro are alive. 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 11 pound weight gain over last 2 months Eyes:Denies sudden loss of vision, diplopia, blurred vision. ENT: Denies loss of hearing, vertigo, nasal or sinus congestion, bleeding gums or poor de ntal repair. Has partial lower (has 4 natural lower teeth and all of her upper teeth). Card:Denies exertional substernal chest heaviness, leg pain. Resp: Denies cough, wheezing, asthma, hemoptysis GI: Denies nausea, vomiting, abdominal pain, diarrhea, constipation, hematochezia. : Denies dysuria, pyuria, hematuria, frequency, incontinence MS: Chronic neck pain Neuro: Significant right sided weakness (but much better than prior to surgery). Still wi th right sided numbness too but also better than prior to surgery. Psych: Mild-moderate depression attributed to her weakness. Endocrine: Denies heat or cold intolerance Heme: Denies easy bruising or prolonged bleeding. Allergic/Immunologic: Mild seasonal allergies PE: BP 104/68 mmHg | Pulse 81 | Resp 14 | Ht 1.588 m (5' 2.5") | Wt 77.565 kg (171 lb) | BM I 30.76 kg/m2 | SpO2 98% Gen: not in acute distress HEENT:Head: Normocephalic, no lesions, without obvious abnormality. Eye: Normal external eye, conjunctiva, lids cornea, CHANDRAKANT. Nose: Normal external nose, mucus membranes and septum. Pharynx: Dental Hygiene adequate. Normal buccal mucosa. Mallampati 3. Neck / Thyroid: Supple, no masses, nodes, nodules or enlargement. Pulm: lungs clear to auscultation Card: regular rate and rhythm, S1, S2 normal, no murmur, click, rub or gallop GI: soft and normal bowel sounds : Not examined Rectal: Not Examined Ext: peripheral pulses normal, no pedal edema, no clubbing or cyanosis Skin:no rashes Neuro:Oriented x 3. Cranial nerves intact. Uses cane and has right sided weakness on ambul ation. A thorough neurologic exam was not performed. Psych:age appropriate and casually dressedoriented to time, place and person, mood and aff ect are within normal limits, pt is a good historian; no memory problems were noted Heme: No cervical LN Questionnaires Review: The score of 11 on the [place] Sleepiness scale suggests moderate ex cessive daytime sleepiness. The score of 25 on the Insomnia Severity Scale suggests that the patient has area significant dissatisfaction with the quality of sleep. The score of 22 on the Padron Depression Inventory is consistent with moderate depression. The score of 21 on the Padron Anxiety Inventory suggests moderate recognized anxiety. The SF36v2 suggests severe tobin f assessed impairment on subscales social function, role emotional; moderate self assessed i mpairment in subscales body pain, vitality, mental health; mild self assessed impairment in subscales physical function, general health, and role physical. The patient scores slightly below the mean on the physical component scale. She scores 2 standard deviations below the mean on the mental component scale. Assessment: PRISCILLA: I suspect that the patient has significant obstructive sleep apnea based o n her history and exam.The various forms of treatment of PRISCILLA were discussed with the patient including 1) Conservative therapy which typically includes weight loss, avoidance of sleep deprivation, avoidance of alcohol, avoidance of sedative medications, avoidance of smoking, and positional therapy (non-supine sleeping); 2) Positive Airway Pressure therapy (which is effective in the vast majority of patients but compliance can be an issue); 3) Dental Applia nce Therapy (which is effective for some patients, typically with mild PRISCILLA, but compliance i s typically good); 4) Expiratory Positive Airway Pressure - which involves passively increas ing EPAP pressures applying a "one-way" valve type device (that looks like a "bandaid") over the nares at night which can be effective for very mild PRISCILLA; 5) Surgical intervention - inc luding Phase I surgery (which typically involves T&A, UPPP, Genioglossus Advancement, Hyoid Suspension) and Phase II surgery (Bimandibular-Maxillary Facial Advancement) - the surgical solution to PRISCILLA is complicated and typically involves several operations; and 6) Hypoglossal Nerve Stimulation Therapy. I've discussed CPAP therapy with her as well as oral appliance therapy. I did not discuss surgical intervention or 12th cranial nerve stimulation therapy. I would like to start the evaluation with home sleep apnea test (type III). She is in agr eement with this Restless leg syndrome: I think she also has restless legs.I've discussed Restless Legs Sy ndrome with the patient. I've also discussed Periodic Limb Movements of Sleep. I've discusse d the relationship between the two. I've also discussed that I generally offer treatment sym ptomatically. I've also discussed an overview of treatment: 1) maintain a ferritin level abo ve 50; 2) Bedtime leg/arm massage; 3) review the need for medications that can worsen RLS/P LMS (such as antidepressants (except for bupropion) and antihistamines); 4) prescribe medica tions such as a) dopaminergics, b) benzodiazepine receptor agonists, c) opiates, and/or d) a typical anti-seizure agents. We will check a ferritin level today. Cervical spine disease with myelopathy: Although she has been left with some deficits suc h as right sided weakness (mild) and numbness she states she is markedly better than she was prior to surgery. She continues to get regular follow-up in our neurosurgery Department. Plan: Ferritin level Home sleep apnea test (type III) Follow-up in one week imon, Warner Balderas Jr., MD - 10/29/2016 10:51 AM PDTFormatting of this note might be different from the origin al. 10/29/16 1000 Padron Depression Inventory-II Depression Score 22 - Moderate depression Insomnia Severity Index Insomnia Severity Index 25 [place] Sleepiness Scale Sitting and reading 3 Watching TV 3 Sitting, inactive in a public place (e.g. a theatre or a meeting) 0 As a passenger in a car for an hour without a break 3 Lying down to rest in the afternoon when circumstances permit 2 Sitting and talking to someone 0 Sitting quietly after a lunch without alcohol 0 In a car, while stopped for a few minutes in traffic 0 Total score 11 SF-36v2 Score PF 42.23 RP 45.93 BP 38.21 GH 43.68 VT 37.74 SF 32.27 RE 28.31 MH 37.79 PCS 46.59 MCS 30.54 documented in th is encounter Plan of [...] + + +--------+ + + | Ambulatory Referral | Outpatient | Routin | PRISCILLA (obstructive | Ordered: 10/29/2016 | | to Sleep Studies | Referral | e | sleep apnea) | | + + +--------+ + + documented as of this encounter Results Ferritin (10/29/2016 12:10 PM PDT) + +-------+ + + + | Component | Value | Ref Range | Performed | Pathologist | | | | | At | Signature | + +-------+ + + + | FERRITIN | 140 | 11 - 307 ng/mL | [facility] | | | | | | [facility] [...] ST. | [address] | [place] | [phone] | | [facility] | | [address] | | | - LABORATORY | | | | + + + + + documented in this encounter Visit Diagnoses + + | Diagnosis | + + | PRISCILLA (obstructive sleep apnea) - Primary Obstructive sleep apnea (adult) (pediatric) | + + | Restless legs syndrome Restless legs syndrome (RLS) | + + | Cervical disc disease Other and unspecified disc disorder of cervical region | + + documented in this encounter
--- OUTSIDE RECORDS SUMMARY | ~2020-03-15 | XMS | Encounter Summary ---
Demographics + + + | Address | [address] | | | [place] [address] | + + + | Home Phone | | + + + | Preferred Language | Unknown | + + + | Marital Status | | + + + | Mormon Affiliation | Unknown | + + + | Race | Unknown | + + + | Ethnic Group | Unknown | + + + Author + + + | Author | [facility] | | | and Scout | + + + | Organization | [facility] | | | and [place] | + + + | Address | Unknown | + + + | Phone | Unavailable | + + + Support + + + + + | Name | Relationship | Address | Phone | + + + + + | Kendall MUNSON | [address] | | | | | [place] [address] | | + + + + + Care Team Providers + +------+ + | Care Catia Designer Name | Role | Phone | + +------+ + | Rex Umanzor MD | PCP | | + +------+ + Encounter Details +--------+ + + + + | Date | Type | Department | Care Team | Description | +--------+ + + + + | 10/29/ | [facility] | [facility] | Jayme Blevins, | Cervical myelopathy | | 2017 | Encounter | MED CTR XRAY [address] | DO [address] | ([facility]); S/P cervical | | | | [place] | [place] [address] [place] | spinal fusion | | | | [place] [address] | [address] | | | | | [phone] | | | +--------+ + + + [...] +---------+--------+ + documented as of this encounter Plan of Treatment +--------+---------+ + + + | Date | Type | Specialty | Care Team | Description | +--------+---------+ + + + | 06/04/ | Office | Sleep Medicine | David Henriquez PA | | | 2019 | Visit | | [address] | | | | | | [place], [place] | | | | | | [address] | | | | | | | | +--------+---------+ + + + documented as of this encounter Procedures + +--------+ + + + | Procedure Name | Priori | Date/Time | Associated Diagnosis | Comments | | | ty | | | | + +--------+ + + + | XR CERVICAL SPINE 2 | Routin | 10/29/2016 | Cervical | Results for this | | OR 3 VIEWS | e | 10:03 AM | myelopathy (HCC) | procedure are in [...] COMPARISON: Cervical spine radiographs dating to | [facility] | | December 04, 2015. FINDINGS: Anterior cervical discectomy and fusion | [facility] | | changes from C3 through [...] ST. | [address] | [place] | [phone] | | [facility] | | [address] | | | - IMAGING | | | | + + + + + documented in this encounter Visit Diagnoses + + | Diagnosis | + + | Cervical myelopathy (HCC) Cervical spondylosis with myelopathy | + + | S/P cervical spinal fusion Arthrodesis status | + + documented in this encounter"
--- OUTSIDE RECORDS SUMMARY | ~2020-03-15 | XMS | Clinical Summary ---
Demographics + + + | Address | [address] | | | [place] [address] | + + + | Home Phone | | + + + | Preferred Language | Unknown | + + + | Marital Status | | + + + | Adventism Affiliation | Unknown | + + + | Race | Unknown | + + + | Ethnic Group | Unknown | + + + Author + + + | Author | [facility] | | | and Scout | + + + | Organization | [facility] | | | and [place] | + + + | Address | Unknown | + + + | Phone | Unavailable | + + + Support + + + + + | Name | Relationship | Address | Phone | + + + + + | Kendall MUNSON | [address] | | | | | [place] [address] | | + + + + + Care Team Providers + +------+ + | Care Appeals Examiner Name | Role | Phone | + +------+ + | Rex Umanzor MD | PCP | | + +------+ + Allergies No Known Allergies Medications + + + +---------+------+------+-------+ | Medication | Sig | Dispensed | Refills | Star | End | Statu | | | | | | t | Date | s | | | | | | Date | | | + + + +---------+------+------+-------+ | DULoxetine | Take 40 mg by mouth | | 0 | | | Activ | | (IRENKA) [address] | Daily. | | | | | e | | capsule | | | | | | | + + + +---------+------+------+-------+ | UNABLE TO FIND | Resmed AirSense 10 | | 0 | | | Activ | | | autoset CPAP: 4-20 | | | | | e | | | cm | | | | | | + + + +---------+------+------+-------+ | amLODIPine | | | 0 | 09/1 | | Activ | | (NORVASC) 5 mg | | | | 5/20 | | e | | tablet | | | | 19 | | | + + + +---------+------+------+-------+ | rosuvastatin | | | 0 | 09/2 | | Activ | | (CRESTOR) 10 mg | | | | 6/20 | | e | | tablet | | | | 19 | | | + + + +---------+------+------+-------+ | GABAPENTIN PO | Take by mouth. | | 0 | | | Activ | | | | | | | | e | + + + +---------+------+------+-------+ Active Problems + + + | Problem | Noted Date | + + + | Constipation | 09/09/2016 | + + + | Diarrhea | 09/09/2016 | + + + | Flatulence symptom | 09/09/2016 | + + + | Cervical myelopathy | 10/21/2015 | + + + | Cervical spinal stenosis | 10/21/2015 | + + + | Smoker - Daily (States quit October 2015) | 10/21/2015 | + + + | Class I, BMI 30-34.9 | 10/21/2015 | + + + | High cholesterol | | + + + | Hypertension | | + + + | Neuropathy | | + + + | History of tobacco use | | + + + | PONV (postoperative nausea and vomiting) | | + + + | Wears dentures | | + + + + + | Overview: lower partial | + + + +---+ | Obstructive Sleep Apnea - No CPAP use | | + +---+ + + | Overview: no CPAP | + + + +---+ | Cervical disc disease | | + +---+ | Restless legs syndrome | | + +---+ | PRISCILLA (obstructive sleep apnea) | | + +---+ + + | Overview: no CPAP | + + Family History + + +------+ + | Medical History | Relation | Name | Comments | + + +------+ + | Heart attack | Father | | | + + +------+ + | Hypertension | Other | | | + + +------+ + | Cancer | Other | | | + + +------+ + | Breast cancer | Paternal | | | | | Aunt | | | + + +------+ + + +------+ + + | Relation | Name | Status | Comments | + +------+ + + | Brother | | Alive | | + +------+ + + | Brother | | Alive | | + +------+ + + | Child | | Alive | | + +------+ + + | Child | | Alive | | + +------+ + + | Father | | | Heart attack | | | | (Age | | | | | 79) | | + +------+ + + | Mother | | Alive | | + +------+ + + | Other | | | | + +------+ + + | Other | | | | + +------+ + + | Paternal Aunt | | | | + +------+ + + | Son | | Alive | | + +------+ + + | Son | | Alive | | + +------+ + + Social History + + + [...] on file | | + + + Last Filed Vital Signs + + + + + | Vital Sign | Reading | Time Taken | Comments | + + + + + | Blood Pressure | 130/80 | 06/02/2019 10:50 AM | | | | | PDT | | + + + + + | Pulse | 71 | 06/02/2019 10:50 AM | | | | | PDT | | + + + + + | Temperature | 37.2 C (99 F) | 04/08/2017 1:59 PM | | | | | PDT | | + + + + + | Respiratory Rate | 16 | 06/02/2019 10:50 AM | | | | | PDT | | + + + + + | Oxygen Saturation | 98% | 06/02/2019 10:50 AM | | | | | PDT | | + + + + + | Inhaled Oxygen | - | - | | | Concentration | | | | + + + + + | Weight | 89.9 kg (198 lb 3.1 | 06/02/2019 10:50 AM | | | | oz) | PDT | | + + + + + | Height | 157.5 cm (5' 2") | 04/08/2017 1:59 PM | | | | | PDT | | + + + + + | Body Mass Index | 36.25 | 04/08/2017 1:59 PM | | | | | PDT | | + + + + + Plan of Treatment +--------+---------+ + + + | Date | Type | Specialty | Care Team | Description | +--------+---------+ + + + | 06/04/ | Office | Sleep Medicine | David Henriquez PA | | | 2019 | Visit | | [address] | | | | | | [place] | | | | | | [address] | | | | | | | | +--------+---------+ + + + + + + + + | Health Maintenance | Due Date | Last | Comments | | | | Done | | + + + + + | Hepatitis C | | | | | Screening | 8 | | | + + + + + | Medication | | | | | Management | 8 | | | + + + + + | Vaccine: | | | | | Pneumococcal 19-64 | 4 | | | | (1 of 1 - PPSV23) | | | | + + + + + | Vaccine: | | | | | Dtap/Tdap/Td (1 - | 7 | | | | Tdap) | | | | + + + + + | Colorectal Cancer | | | | | Screening | 8 | | | | (Colonoscopy) | | | | + + + + + | Vaccine: Zoster (1 | | | | | of 2) | 8 | | | + + + + + | Breast Cancer | | | | | Screening | 3 | | | + + + + + | Adult Annual | | | | | Wellness Visit | 5 | | | + + + + + | Med Mgmt: Cr | | 10/17/19 | | | | 7 | 16 | | + + + + + | Med Mgmt: eGFR | | 10/17/19 | | | | 7 | 16 | | + + + + + | Vaccine: Influenza | | 05/10/20 | | | (#1) | 0 | 19, | | | | | 05/20/20 | | | | | 18, | | | | | 05/28/20 | | | | | 17 | | + + + + + Implants + +--------+--------+ +--------+--------+--------+ | Implanted | Type | Area | Manufacture | Device | Shelf | Model | | | | | r | | Expira | / | | | | | | Identi | tion | Serial | | | | | | fier | Date | / Lot | + +--------+--------+ +--------+--------+--------+ | Spacer Cc Acf Lordotic 8mm | Generi | N/A: | MUSCULOSKEL | | 07/25/ | [id number] | | Adv - | c | Spine | ETAL | | 2017 | | | [id number]: | | Cervic | TRANSPLA - | | | /[id number] | | Qty: 1 on 10/23/2015 by | | al | MUSC | | | [id number] | | Jayme Blevins DO at [facility] | | | | | | 038 / | | [facility] | | | | | | | | [facility]ENTER | | | | | | | + +--------+--------+ +--------+--------+--------+ | Spacer Cc Acf Lordotic 6mm | Generi | N/A: | MUSCULOSKEL | | 05/01/ | [id number] | | Adv - | c | Spine | ETAL | | 2018 | | | [id number]: | | Cervic | TRANSPLA - | | | /[id number] | | Qty: 1 on 10/23/2015 by | | al | MUSC | | | [id number] | | Jayme Blevins DO at [facility] | | | | | | 098 / | | [facility] | | | | | | | | CENTER | | | | | | | + +--------+--------+ +--------+--------+--------+ | Spacer Cc Acf Lordotic 8mm | Generi | N/A: | MUSCULOSKEL | | 07/25/ | [id number] | | Adv - | c | Spine | ETAL | | 2018 | | | [id number]: | | Cervic | TRANSPLA - | | | /[id number] | | Qty: 1 on 10/23/2015 by | | al | MUSC | | | [id number] | | Jayme Blevins DO at [facility] | | | | | | 040 / | | [facility] | | | | | | | | CENTER | | | | | | | + +--------+--------+ +--------+--------+--------+ | Spacer Cc Acf Lordotic 6mm | Generi | N/A: | MUSCULOSKEL | | 03/14/ | [id number] | | Adv - | c | Spine | ETAL | | 2018 | | | [id number]: | | Cervic | TRANSPLA - | | | /[id number] | | Qty: 1 on 10/23/2015 by | | yisel | MUSC | | | [id number] | | Jayme Blevins DO at [facility] | | | | | | 018 / | | [facility] | | | | | | | | CENTER | | | | | | | + +--------+--------+ +--------+--------+--------+ | Patrizia Arshad Pls 1c Aseptic | Graft | N/A: | MEDTRONIC - | | 05/24/ | [id number] | | - [id number]: Qty: | | Spine | MEDT | | 2017 | | | 1 on 10/23/2015 by Felicity, | | Cervic | | | | /[id number] | | Jayme Keating DO at [facility] | | al | | | | [phone] | | [facility] | | | | | | / | + +--------+--------+ +--------+--------+--------+ | Patrizia Arshad Pls c Aseptic | Graft | N/A: | MEDTRONIC - | | 05/24/ | [id number] | | - [id number]: Qty: | | Spine | MEDT | | 2016 | | | 1 on 10/23/2015 by Felicity, | | Cervic | | | | /[id number] | | Jayme Keating DO at [facility] | | al | | | | [phone] | | [facility] | | | | | | / | + +--------+--------+ +--------+--------+--------+ | Plate Ant Riesel Cerv 80mm | Plate | N/A: | MEDTRONIC - | | | [id number] | | - [id number]: Qty: 1 | | Spine | MEDT | | | 0 / / | | on 10/23/2015 by Felicity, | | Cervic | | | | | | Jayme Keating DO at [facility] | | al | | | | | | [facility] | | | | | | | + +--------+--------+ +--------+--------+--------+ | Screw Slf-Drl V/A 4.0x16mm - | Screw | N/A: | SOFAMOR | | | [id number] | | [id number]: Qty: 2 on | | Spine | DANEK - DIV | | | | | 10/23/2015 by Jayme Blevins | | Jin | [employer] | | | | | ADO at [facility] | | al | - [facility] | | | | | [facility] | | | | | | | + +--------+--------+ +--------+--------+--------+ | Screw Slf-Drl V/A 4.0x17mm - | Screw | N/A: | SOFAMOR | | | [id number] | | [id number]: Qty: 8 on | | Spine | DANEK - DIV | | | | | 10/23/2015 by Jayme Blevins | | Jin | [employer]IC | | | | | A DO at [facility] | | al | - [facility] | | | | | [facility] | | | | | | | + +--------+--------+ +--------+--------+--------+ Results Not on filefrom Last 3 Months Insurance + +--------+ +--------+ +---------+--------+ | Payer | Benefi | Subscriber | Effect | Phone | Address | Type | | | t Plan | ID | jesus | | | | | | / | | Dates | | | | | | Group | | | | | | + +--------+ +--------+ +---------+--------+ | MEDICARE | MEDICA | [id number] | 04/10/20 | [phone] | | Medica | | | RE | | 18-Pre | 5 | | re | | | PART A | | sent | | | | | | AND B | | | | | | + +--------+ +--------+ +---------+--------+ | [employer] [place] | MUTUAL | [id number] | 04/10/20 | [phone] | | Indemn | | | AND | | 18-Pre | 0 | | ity | | | [place] | | sent | | | | | | [place] | | | | | | | | MDCR | | | | | | | | SUPPL | | | | | | + +--------+ +--------+ +---------+--------+ + +--------+ +--------+ + + | Guarantor Name | Accoun | Relation to | Date | Phone | Billing Address | | | t Type | Patient | of | | | | | | | | | | + +--------+ +--------+ + + | Ana Wells | Person | Self | [birth year] | [address] | | | al/Fam | | 1956 | [phone] | [place] [address] | | | cem | | | 5 (Home) | | + +--------+ +--------+ + + Advance Directives + + + + + | Type | Date Recorded | Patient | Explanation | | | | Corrections Nurse | | + + + + + | Power of | | | | | Mobile Heavy Equipment Operator | | | | + + + + + | Advance | 10/17/2015 6:40 | | | | Directive | PM | | | + + + + + + + + + + | Code Status | Date | Date | Comments | | | Activated | Inactivated | | + + + + + | Full Code | 10/23/2015 | 10/24/2015 | | | | 2:36 PM | 2:45 PM | | + + + + +
--- OUTSIDE RECORDS SUMMARY | ~2020-03-15 | XMS | Encounter Summary ---
Demographics + + + | Address | [address] | | | [place] [address] | + + + | Home Phone | | + + + | Preferred Language | Unknown | + + + | Marital Status | | + + + | Yarsanism Affiliation | Unknown | + + + | Race | Unknown | + + + | Ethnic Group | Unknown | + + + Author + + + | Author | [facility] | | | and Scout | + + + | Organization | [facility] | | | and [place] | + + + | Address | Unknown | + + + | Phone | Unavailable | + + + Support + + + + + | Name | Relationship | Address | Phone | + + + + + | Kendall MUNSON | [address] | | | | | [place] [address] | | + + + + + Care Team Providers + +------+ + | Care School Business Manager Name | Role | Phone | [...] + | 06/02/ | Office | [facility] | David Henriquez PA | PRISCILLA on CPAP (Primary | | 2019 | Visit | SLEEP DISORDER [address] | [address] | Dx) | | | | [address] | [place] | | | | | [place] [address] | [address] | | | | | [phone] | | | +--------+---------+ + + + [...] documented as of this encounter Progress Notes Svitlana Real, Drink Mixer - 06/02/2019 11:00 AM PDTFormatting of this note might be d ifferent from the original. 06/02/19 1000 Padron Depression Inventory-II Depression Score 14 - Mild depression Insomnia Severity Index Insomnia Severity Index 6 Dysart Sleepiness Scale 1. Sitting and reading 1 2. Watching TV 0 3. Sitting, inactive in a public place (e.g. a theatre or a meeting) 0 4. As a passenger in a car for an hour without a break 2 5. Lying down to rest in the afternoon when circumstances permit 0 6. Sitting and talking to someone 0 7. Sitting quietly after a lunch without alcohol 0 8. In a car, while stopped for a few minutes in traffic 0 Total score 3 SF-36v2 Score PF 25.92 RP 39.19 BP 42.24 GH 52.23 VT 46.66 SF 37.29 RE 28.31 MH 35.17 PCS 41.95 MCS 36.45 oram, [place] Cullen - 11:00 AM PDT Subjective: Patient ID: Ana Wells is a 63 y.o. female. HPI last office visit: 06/02/2018 date of HST: 11/04/2016 AHI: 68.8 RDI: O2%: 84% with 91.1 minutes below 90% Machine type: ResMed AirSense 10 Mask type: full face mask DME: [facility] [place] pressure: 4-20 cm Median: 9.8 cm 95%: 11.5 cm maximum: 12.7 cm Nights using CPAP: 355/365 % of nights >4 hours: 96% average usage (all nights): 7:51 average usage (nights used): 8:05 AHI: 1.1 Ana comes in for CPAP compliance. She continues to do well with her CPAP, wearing it regu larly for the duration of her sleep. Her CPAP has become a regular part of her sleep routin e. The only times she sleeps without it are when she travels, but she has noticed that she does not sleep nearly as well without it. She does not have any questions or concerns regar ding her CPAP. I have discussed the download and results of the paperwork in detail. She says her areas o f decline are due to her brother being murdered in [place]. The download shows that her sle ep apnea is controlled, with an AHI of 1.1. It also shows that her leaks are controlled. Review of Systems Objective: Physical Exam BP 130/80 | Pulse 71 | Resp 16 | Wt 89.9 kg (198 lb 3.1 oz) | SpO2 98% | BMI 36.25 kg/ m Assessment: Problem #1: OBSTRUCTIVE SLEEP APNEA ([id number]-J64.33) This is controlled with CPAP. She is doing well with her CPAP usage. Plan: 1. She is to continue with CPAP indefinitely. 2. Touch base with medical supplier twice per year to ensure that all equipment is satisfa ctory. I will follow up again in 1 year, sooner prn. At that time we will reassess with all appro priate paperwork. Fifteen minutes were spent [id number], with the majority of time spent in [...] 2020 | Visit | | [address] | | | | | | [place] | | | | | | [address] | | | | | | | | +--------+---------+ + + + documented as of this encounter Visit Diagnoses + + | Diagnosis | + + | PRISCILLA on CPAP - Primary Obstructive sleep apnea (adult) (pediatric) | + + documented in this encounter"
--- OUTSIDE RECORDS SUMMARY | ~2020-03-15 | XMS | Encounter Summary ---
Demographics + + + | Address | [address] | | | [place] [address] | + + + | Home Phone | | + + + | Preferred Language | Unknown | + + + | Marital Status | | + + + | Latter Day Affiliation | Unknown | + + + | Race | Unknown | + + + | Ethnic Group | Unknown | + + + Author + + + | Author | [facility] | | | and Scout | + + + | Organization | [facility] | | | and [place] | + + + | Address | Unknown | + + + | Phone | Unavailable | + + + Support + + + + + | Name | Relationship | Address | Phone | + + + + + | Kendall MUNSON | [address] | | | | | [place] [address] | | + + + + + Care Team Providers + +------+ + | Care Metrology Specialist Name | Role | Phone | + +------+ + | Rex Umanzor MD | PCP | | + +------+ + Encounter Details +--------+ + + + + | Date | Type | Department | Care Team | Description | +--------+ + + + + | 03/19/ | [facility] | [facility] | Jayme Blevins, | Chronic midline low | | 2016 | Encounter | MED CTR XRAY [address] | DO [address] | back pain with | | | | [place] | [address] [place] [address] | right-sided sciatica | | | | [place] [address] | [address] | | | | | [phone] | | | +--------+ + + + [...] 2019 | Visit | | [address] | | | | | | [place] | | | | | | [address] | | | | | | | | +--------+---------+ + + + documented as of this encounter Procedures + +--------+ + + + | Procedure Name | Priori | Date/Time | Associated Diagnosis | Comments | | | ty | | | | + +--------+ + + + | XR LUMBAR SPINE 4 + | Routin | 03/19/2016 | Chronic midline | Results for this | | VW | e | 12:16 PM | low back pain with | procedure are in the | | | | PDT | right-sided sciatica | results section. | + +--------+ + + + documented in this encounter Results XR Lumbar Spine 4 + Vw (03/19/2016 12:16 PM PDT) + + | Specimen | + + | | + + + + + | Narrative | Performed At | + + + | EXAM: XR LUMBAR SPINE 4 + VW dated 03/19/2016 10:59 AM | [facility] | | HISTORY:Lumbago COMPARISON: Lumbar spine MRI dated 3 03/11/2016 | [facility] | | FINDINGS:5 views of the lumbar [...] | Anthony, Rad Results In - 03/19/2016 3:06 PM PDT [...] + + | Performing | Address | City/State/[facility] | Phone Number | | Organization | | | | + + + + + | [facility] | [address] | [place], [place] | [phone] | | [facility] | | [address] | | | - IMAGING | | | | + + + + + documented in this encounter Visit Diagnoses + + | Diagnosis | + + | Chronic midline low back pain with right-sided sciatica | + + documented in this encounter"
--- OUTSIDE RECORDS SUMMARY | ~2020-03-15 | XMS | Encounter Summary ---
Demographics + + + | Address | [address] | | | [place] [address] | + + + | Home Phone [...] | Organization | [facility] | | | and [place] | + + + | Address | Unknown | + + + | Phone | Unavailable | + + + Support + + + + + | Name | Relationship | Address | Phone | + + + + + | Kendall MUNSON | [address] | | | | | [place] [address] | | + + + + + Care Team Providers + +------+ + | Care Integrated Circuit Design Engineer Name | Role | Phone | + +------+ + PCP | Unavailable | + +------+ + Encounter Details +--------+ + + + + | Date | Type | Department | Care Team | Description | +--------+ + + + + | 01/04/ | Hospital | [facility] | | | | 2001 | Encounter | MED CTR XRAY [address] | | | | | | [place] | | | | | | [place] [address] | | | | | | [phone] | | | +--------+ + + + [...] 2019 | Visit | | [address] | | | | | | [place] | | | | | | [address] | | | | | | | | +--------+---------+ + + + documented as of this encounter Visit Diagnoses Not on filedocumented in this encounter"
--- OUTSIDE RECORDS SUMMARY | ~2020-03-15 | XMS | Encounter Summary ---
Demographics + + + | Address | [address] | | | [place] [address] | + + + | Home Phone | | + + + | Preferred Language | Unknown | + + + | Marital Status | | + + + | Sabianist Affiliation | Unknown | + + + | Race | Unknown | + + + | Ethnic Group | Unknown | + + + Author + + + | Author | [facility] | | | and Scout | + + + | Organization | [facility] | | | and [place] | + + + | Address | Unknown | + + + | Phone | Unavailable | + + + Support + + + + + | Name | Relationship | Address | Phone | + + + + + | Kendall MUNSON | [address] | | | | | [place] [address] | | + + + + + Care Team Providers + +------+ + | Care Medical Staffing Coordinator Name | Role | Phone | + +------+ + | Rex Umanzor MD | PCP | | + +------+ + Encounter Details +--------+ + + + + | Date | Type | Department | Care Team | Description | +--------+ + + + + | 10/29/ | [facility] | [facility] | Warner Albrecht, | Restless legs | | 2017 | Encounter | MED CTR LABORATORY | [address] | syndrome | | | | [address] | [address] | | | | | [place] | [place] [address] | | | | | [address] | [phone] | | | | | [phone] | | | | | | | Warner Galdamez | | | | | | MD Jovanna [address] | | | | | | [facility] | | | | | | [place] [address] | | | | | | [phone] | | | | | | | [...] 2019 | Visit | | [address] | | | | | | [place] | | | | | | [address] | | | | | | | | +--------+---------+ + + + documented as of this encounter Procedures + +--------+ + + + | Procedure Name | Priori | Date/Time | Associated Diagnosis | Comments | | | ty | | | | + +--------+ + + + | FERRITIN | Routin | 10/29/2016 | Restless legs | Results for this | | | e | 12:10 PM | syndrome | procedure are in the | | | | PDT | | results section. | + +--------+ + + + documented in this encounter Results Ferritin (10/29/2016 12:10 PM PDT) + +-------+ + + + | Component | Value | Ref Range | Performed | Pathologist | | | | | At | Signature | + +-------+ + + + | FERRITIN | 140 | 11 - 307 ng/mL | [facility] | | | | | [...] + + | [facility] | [address] | [place] | [phone] | | [facility] | | [address] | | | - LABORATORY | | | | + + + + + documented in this encounter Visit Diagnoses + + | Diagnosis | + + | Restless legs syndrome Restless legs syndrome (RLS) | + + documented in this encounter"
--- OUTSIDE RECORDS SUMMARY | ~2020-03-15 | XMS | Encounter Summary ---
Demographics + + + | Address | [address] | | | [place] [address] | + + + | Home Phone | | + + + | Preferred Language | Unknown | + + + | Marital Status | | + + + | Protestant Affiliation | Unknown | + + + | Race | Unknown | + + + | Ethnic Group | Unknown | + + + Author + + + | Author | [facility] | | | and Scout | + + + | Organization | [facility] | | | and [place] | + + + | Address | Unknown | + + + | Phone | Unavailable | + + + Support + + + + + | Name | Relationship | Address | Phone | + + + + + | Kendall MUNSON | [address] | | | | | [place] [address] | | + + + + + Care Team Providers + +------+ + | Care Clinical Consultant Name | Role | Phone | + +------+ + PCP | Unavailable | + +------+ + Encounter Details +--------+ + + + + | Date | Type | Department | Care Team | Description | +--------+ + + + + | 01/04/ | Hospital | [facility] | | | | 2001 - | Encounter | MED CTR OP REHAB | | | | | | [address] | | | | 02/06/ | | [place] [address] | | | | 2001 | | [phone] | | | +--------+ + + + [...] [place] | | | | | | [address] | | | | | | | | +--------+---------+ + + + documented as of this encounter Visit Diagnoses Not on filedocumented in this encounter"
--- OUTSIDE RECORDS SUMMARY | ~2020-03-15 | XMS | Encounter Summary ---
Demographics + + + | Address | [address] | | | [place] [address] | + + + | Home Phone | | + + + | Preferred Language | Unknown | + + + | Marital Status | | + + + | Latter-Day Affiliation | Unknown | + + + | Race | Unknown | + + + | Ethnic Group | Unknown | + + + Author + + + | Author | [facility] | | | and Scout | + + + | Organization | [facility] | | | and [place] | + + + | Address | Unknown | + + + | Phone | Unavailable | + + + Support + + + + + | Name | Relationship | Address | Phone | + + + + + | Kendall MUNSON | [address] | | | | | [place] [address] | | + + + + + Care Team Providers + +------+ + | Care Administrative Technician Name | Role | Phone | [...] | Jayme Keating DO | [address] | | | | | myelopathy | [address] | [place], | | | | | ([facility]) S/P | [address] | [place] | | | | | cervical | [place] | [address] | | | | | spinal | [address] | Phone: | | | | | fusion | Phone: | [phone] | | | | | Procedures | [phone] | Fax: | | | | | MRI Cervical | Fax: | [phone] | | | | | Spine wo | [phone] | | | | | | Contrast | | | +--------+--------+ + + + + Reason for Visit Diagnostic/Screening (Routine) +--------+--------+ + + + + | Status | Reason | Specialty | Diagnoses / | Referred By | Referred To | | | | | Procedures | Contact | Contact | +--------+--------+ + + + + | Closed | | Radiology | Diagnoses | Felicity, | [facility] | | | | | Cervical | Jayme Keating DO | [address] | | | | | myelopathy | [address] | [place], | | | | | ([facility]) S/P | [address] | [place] | | | | | cervical | [place] | [address] | | | | | spinal | [address] | Phone: | | | | | fusion | Phone: | [phone] | | | | | Procedures | [phone] | Fax: | | | | | MRI Cervical | Fax: | [phone] | | | | | Spine wo | [phone] | | | | | | Contrast | | | +--------+--------+ + + + + Encounter Details +--------+ + + + + | Date | Type | Department | Care Team | Description | +--------+ + + + + | 03/19/ | Hospital | [facility] | Jayme Blevins, | Cervical myelopathy | | 2016 | Encounter | MED CTR MRI [address] | DO [address] | ([facility]); S/P cervical | | | | [place], | [place] [address] [place] | spinal fusion | | | | [place] [address] | [address] | | | | | [phone] | | | +--------+ + + + [...] mcg by | | 0 | | 09/20/201 | | (VITAMIN B-12) 500 | mouth [...] [place] | | | | | | [address] | | | | | | | | +--------+---------+ + + + documented as of this encounter Procedures + +--------+ + + + | Procedure Name | Priori | Date/Time | Associated Diagnosis | Comments | | | ty | | | | + +--------+ + + + | MRI CERVICAL SPINE | Routin | 03/19/2016 | Cervical | Results for this | | WO CONTRAST | e | 12:10 PM | myelopathy (HCC) | procedure are in the | | | | PDT | S/P cervical spinal | results section. | | | | | fusion | | + +--------+ + + + documented in this encounter Results MRI Cervical Spine wo Contrast (03/19/2016 12:10 PM PDT) + + | Specimen | + + | | + + + + + | Narrative | Performed At | + + + | UNENHANCED MRI CERVICAL SPINE 03/19/2016 11:28 AM CLINICAL | [facility] | | HISTORY: Cervical myelopathy COMPARISON: Cervical MRI October [facility] | | 3, cervical radiographs January 28 and multiple previous radiographs | [facility] | | TECHNIQUE: The following 3T [...] [address] | [place] | [phone] | | [facility] | | [address] | | | - IMAGING | | | | + + + + + documented in this encounter Visit Diagnoses + + | Diagnosis | + + | Cervical myelopathy (HCC) Cervical spondylosis with myelopathy | + + | S/P cervical spinal fusion Arthrodesis status | + + documented in this encounter"
--- OUTSIDE RECORDS SUMMARY | ~2020-03-15 | XMS | Encounter Summary ---
Demographics + + + | Address | [address] | | | [place] [address] | + + + | Home Phone [...] | [facility] | | | and [place] | + + + | Address | Unknown | + + + | Phone | Unavailable | + + + Support + + + + + | Name | Relationship | Address | Phone | + + + + + | Kendall MUNSON | [address] | | | | | [place] [address] | | + + + + + Care Team Providers + +------+ + | Care Ux Ui Designer Name | Role | Phone | + +------+ + PCP | Unavailable | + +------+ + Encounter Details +--------+ + + + + | Date | Type | Department | Care Team | Description | +--------+ + + + + | 03/12/ | Hospital | [facility] | | | | 2004 | Encounter | MED CTR XRAY [address] | | | | | | [place] | | | | | | [place] [address] | | | | | | [phone] | | | +--------+ + + + [...] 2019 | Visit | | [address] | | | | | | [place] | | | | | | [id number] | | | | | | | | +--------+---------+ + + + documented as of this encounter Visit Diagnoses Not on filedocumented in this encounter"
--- OUTSIDE RECORDS SUMMARY | ~2020-03-15 | XMS | Encounter Summary ---
Demographics + + + | Address | [address] | | | [place] [address] | + + + | Home Phone | | + + + | Preferred Language | Unknown | + + + | Marital Status | | + + + | Worship Affiliation | Unknown | + + + | Race | Unknown | + + + | Ethnic Group | Unknown | + + + Author + + + | Author | [facility] | | | and Scout | + + + | Organization | [facility] | | | and [place] | + + + | Address | Unknown | + + + | Phone | Unavailable | + + + Support + + + + + | Name | Relationship | Address | Phone | + + + + + | Kendall MUNSON | [address] | | | | | [place] [address] | | + + + + + Care Team Providers + +------+ + | Care Music Manager Name | Role | Phone | [...] Description | +--------+---------+ + + + | 12/16/ | Office | [facility] | David Henriquez PA | PRISCILLA on CPAP (Primary | | 2017 | Visit | SLEEP DISORDER [address] | [address] | Dx) | | | | [address] | [place] | | | | | [place] [address] | [address] | | | | | [phone] | | | +--------+---------+ + + + [...] + + + | Blood Pressure | 132/76 | 12/16/2016 11:52 AM | | | | | PDT | | + + + + + | Pulse | 87 | 12/16/2016 11:52 AM | | | | | PDT | | + + + + + | Temperature | - | - | | + + + + + | Respiratory Rate | 16 | 12/16/2016 11:52 AM | | | | | PDT | | + + + + + | Oxygen Saturation | 99% | 12/16/2016 11:52 AM | | | | | PDT | | + + + + + | Inhaled Oxygen | - | - | | | Concentration | | | | + + + + + | Weight | 78.1 kg (172 lb 1.6 | 12/16/2016 11:52 AM | | | | oz) | PDT | | + + + + + | Height | - | - | | + + + + + | Body Mass Index | 31.48 | 11/27/2016 2:05 PM | | | [...] encounter Progress Notes David Henriquez PA - 12/16/2016 11:49 AM PDT Subjective: Patient ID: Ana Wells is a 61 y.o. female. HPI last office visit: 11/27/2016 date of HSAT: 11/04/2016 AHI: 68.8 RDI: O2%: 84% with 91.1 minutes below 90% Machine type: ResMed AirSense 10 Mask type: full face mask DME: [facility] [place] pressure: 4-20 cm Median: 10.2 cm 95%: 11.5 cm maximum: 12.5 cm Nights using CPAP: 19/19 % of nights >4 hours: 94% average usage (all nights): 6:58 average usage (nights used): 6:58 AHI: 1.8 Ana comes in for CPAP compliance. She is doing well with her CPAP, wearing it nightly for the duration of her sleep. She has not had any difficulty adjusting to using CPAP. She fe els that she is sleeping better and has felt more rested. Her only concern has been with he r mask fit. She was doing well with her full face mask, but tried a nasal mask. This didn' t go well so she changed back to her full face mask. She was more comfortable with this [place] nge, but was having problems with leaks. I had her work with a plumbing technician to help with the mask fit. She feels that she will continue to do well. She is comfortable with her current settings and is now comfortable making adjustments to the settings, if necessary. I have discussed the download in detail. This shows that her sleep apnea is controlled, wi th an AHI of 1.8. It also shows that her leaks are controlled. BP 132/76 mmHg | Pulse 87 | Resp 16 | Wt 78.064 kg (172 lb 1.6 oz) | SpO2 99% Review of Systems Objective: Physical Exam Assessment: Problem #1: OBSTRUCTIVE SLEEP APNEA ([id number]) This is well controlled with CPAP. She is doing well with her CPAP compliance. Plan: 1. She is to continue with CPAP indefinitely. I will follow up again in 1 month, sooner prn. Fifteen minutes were spent [id number], wi th the majority of time spent in counseling. [...] [place] | | | | | | [id number] | | | | | | | | +--------+---------+ + + + documented as of this encounter Visit Diagnoses + + | Diagnosis | + + | PRISCILLA on CPAP - Primary Obstructive sleep apnea (adult) (pediatric) | + + documented in this encounter"
[~2020-03-15 09:48] MED LIST: CHANTIX1 MG PO; DULOXETINE HCL40 MG PO; GABAPENTIN300 MG PO; HYZAAR 100-251 EACH PO; SIMVASTATIN40 MG PO; WOMEN'S DAILY1 EACH PO
[2020-03-15] MEDS ORDERED: PERCOCET 5-3251 EACH PO (13:06)
[2020-03-15] MEDS ORDERED: CRUTCH1 EACH MISC (13:06)
== END 2020-03-15 13:25 | disposition home or self-care (01) ==
LOC: ED 09:48
DX: S76.011A Strain of muscle, fascia and tendon of right hip, initial encounter (principal); I10 Essential (primary) hypertension; F17.200 Nicotine dependence, unspecified, uncomplicated; Z79.899 Other long term (current) drug therapy; W23.0XXA Caught, crushed, jammed, or pinched between moving objects, initial encounter
CPT/HCPCS: 73502; 73700; 96374; 96376; 99284-25; J2270

== ENCOUNTER 2020-09-20 10:22 | Emergency (ER) | payer MEDICARE, OTHER ==
[~2020-09-20] VITALS: Ht 157.5 cm; Wt 86.2 kg
[~2020-09-20 10:22] MED LIST changes: +CRUTCH1 EACH MISC; +PERCOCET 5-3251 EACH PO
[2020-09-20] MEDS ORDERED: ONDANSETRON ODT8 MG PO (14:01)
== END 2020-09-20 14:20 | disposition home or self-care (01) ==
LOC: ED 10:22
DX: U07.1 COVID-19 (principal); E78.00 Pure hypercholesterolemia, unspecified; F17.200 Nicotine dependence, unspecified, uncomplicated; Z79.899 Other long term (current) drug therapy
CPT/HCPCS: 71045; 80053; 84484; 85025; 99283-25; C9803; J7030; U0003

== ENCOUNTER 2023-08-13 11:53 | Day surgery (SDC) | payer MEDICARE, OTHER ==
[~2023-08-13] VITALS: Ht 157.5 cm; Wt 83.0 kg
[~2023-08-13 11:53] MED LIST changes: +MULTI VITAMIN1 EACH; +ONDANSETRON ODT8 MG PO
[2023-08-13 12:15] VITALS: BP 136/69
[2023-08-13] MEDS ORDERED: VITAMIN D310 MC4 PO (12:23)
--- NOTE | 2023-08-13 14:24 | NUR ---
08/13/23 1424 Chanda Pablo 1412- PT ARRIVES TO PACU, SEMI MARQUES POSITION ON BACK. PT HAS EYES OPEN, BUT VERY DROWSY. ENCOURAGED TO PASS GAS, ABD SOFT, NON DISTENDED. ALL MONITORS IN PLACE. LR INFUSING TO LH IV. O2 AT 3L PER NC. 1418- PT ASSISTED TO LEFT SIDE TO ASSIST WITH PASSING GAS. PT RESTING INTERMITTENTLY. DENIES PAIN OR NAUSEA, STATES "I'M JUST GROGGY". PT WAKES EASILY TO VERBAL STIMULUS OR LOUD SOUNDS FROM MONITOR. CONTINUE TO MONITOR.
[2023-08-13 15:08] VITALS: BP 126/51
--- NOTE | 2023-08-13 15:17 | NUR ---
1505 PT CAME TO DAY SURGERY RM 7 FROM PACU. REPORT TAKEN FROM DAVE Rivera RN. PT AWAKE AND ORIENTED BUT DROWSY. PT ON 3 LPM OF O2. 1510 PT REPORTS NO NAUSEA. AND REQUESTING TO SIT UP AND DRINK WATER. 1518 REMOVED PT FROM OXYGEN. PT 98% O2 SAT ON RA. 1536 PT STAYING steady 96-97% O2 SAT ON RA.
[2023-08-13 15:46] VITALS: BP 136/69; BP 136/91
[2023-08-13 15:56] VITALS: BP 128/56
--- NOTE | 2023-08-13 16:04 | NUR ---
1546 VITALS TAKEN. PT AT 98% O2 SAT. PT REPORTS NO NAUSEA. DISCHARGE PAPERWORK REVIEWED WITH AT BEDSIDE. PT AND HAVE NO FURTHER QUESTIONS AT THIS TIME. PT BREATHING EQUAL AND UNLABORED. 1555 IV DISCONTINUED. PT DISCHARGED FROM DAY SURGERY TO HUSBANDS CAR VIA WHEELCHAIR.
--- NOTE | 2023-08-14 18:06 | OR ---
[facility] [address] [place], [place] [address] Signed DATE OF OPERATION: 08/13/2023 SURGEON: Ayaan Henson MD PREOPERATIVE DIAGNOSES: History of diverticulosis, colon surveillance. POSTOPERATIVE DIAGNOSES: 1. Polyps x5. 2. Diverticulosis. PROCEDURE: Total colonoscopy to cecum with cold snare polypectomy x1 and cold morcellation polypectomy x4. ANESTHESIA: Intravenous sedation; fentanyl 100 mcg and Versed 10 mg. INDICATION: This 68-year-old white woman is a patient of Dr. Umanzor and underwent colonoscopy in 2017, at which time she was found to have diverticulosis. She has no family history of colon cancer and no current symptoms. She understands the risk of colonoscopy surveillance, understand the risk of bleeding, infection, and perforation. FINDINGS: The prep was good. Complete colonoscopy was undertaken to the cecum. Passage beyond the hepatic flexure was challenging, but was accomplished fully. She had five polyps in aggregate, all of them small, one in the sigmoid and four elsewhere, two in the right colon, one in the cecum and one in the transverse colon. There is no evidence of colitis or other abnormality. DESCRIPTION OF PROCEDURE: The patient was brought to the endoscopy suite and placed in the lateral decubitus position, given intravenous sedation to the point of slurred speech and nystagmus. Digital rectal examination was normal. An Olympus video colonoscope was passed in the rectum and manipulated through the sigmoid where numerous diverticula were noted. The scope was passed to the mid transverse colon where a small adenomatous appearing polyp was noted, this was excised with cold morcellation technique. The scope was further advanced and passage beyond the Electronically Signed By: AYAAN HENSON MD 08/14/23 1801 PATIENT NAME: LIA LOMAS OPERATIVE REPORT DATE OF : 59 REPORT #: [id number] PHYSICIAN: AYAAN HENSON MD PCP: REX UMANZOR MD REPORT IS CONFIDENTIAL AND NOT TO BE RELEASED WITHOUT AUTHORIZATION [facility] [address] [place], [place] [address] Signed hepatic flexure was rather challenging. On that basis, she was placed in a supine position with abdominal wall support and so forth. The scope was passed beyond this ultimately to the cecum. The ileocecal valve and appendiceal orifice were normal. The scope was withdrawn in the proximal ascending colon/cecum. A small polyp was noted, this was excised with cold morcellation technique. Further withdrawal showed two small polyps of the distal right colon also excised with cold morcellation technique. Further withdrawal showed no other abnormality other than the diverticulosis of the left colon until about the sigmoid at 30 cm where a slightly larger sessile polyp was noted. This was excised with cold snare technique completely. Further withdrawal allowed for retroflexed view of the rectum, which was normal. The scope was removed and the patient was taken to the recovery room in good condition. CONCLUDING DIAGNOSES: 1. Diverticulosis. 2. Polyps x5. PLAN: Recommend repeat colonoscopy in 5 years, sooner if clinically indicated. She will maintain a high-fiber diet otherwise and return to the ongoing care of Dr. Umanzor. MD JASON Myrick/SID /[id number] cc: Rex Umanzor MD Copies: REX UMANZOR MD ~ Electronically Signed By: AYAAN HENSON MD 08/14/23 1806 PATIENT NAME: LIA LOMAS OPERATIVE REPORT DATE OF : 59 REPORT #: [id number] PHYSICIAN: AYAAN HENSON MD PCP: REX UMANZOR MD REPORT IS CONFIDENTIAL AND NOT TO BE RELEASED WITHOUT AUTHORIZATION
--- NOTE | 2023-08-19 16:02 | PATH ---
[facility] [address] [place], [place] [address] Signed SPECIMEN(S): A TRANSVERSE COLON POLYP SPECIMEN(S): B ASCENDING/RIGHT COLON POLYPS SPECIMEN(S): C HEPATIC FLEXURE COLON POLYP SPECIMEN(S): D SIGMOID POLYP SPECIMEN SOURCE: A. TRANSVERSE COLON POLYP B. ASCENDING/RIGHT COLON POLYPS C. HEPATIC FLEXURE COLON POLYP D. SIGMOID POLYP CLINICAL HISTORY: Preop: History of diverticulosis. Postop: Diverticulosis, polyp x 5. FINAL PATHOLOGIC DIAGNOSIS: A. Transverse colon polyp: - Tubular adenoma (one fragment). B. Ascending / right colon polyps: - Tubular adenoma (two fragments). C. Hepatic flexure colon polyp: - Tubular adenoma (two fragments). D. Sigmoid polyp: - Polypoid colonic mucosa with slight hyperplastic features (one fragment). JVR:[facility] MICROSCOPIC EXAMINATION: Histologic sections of all submitted blocks are examined by light microscopy. These findings, together with the gross examination, support the pathologic diagnosis. GROSS DESCRIPTION: A. The specimen, labeled and designated "Lomas, L, " and designated on the requisition "colon, transverse polypectomy," is received in formalin and consists of one lyman soft tissue fragment measuring 0.4 cm, the specimen is submitted entirely in (A1). B. The specimen, labeled and designated "Lomas, L, " and designated on the requisition "colon, ascending/right polypectomy x 2," is received in formalin and consists of four lyman soft tissue fragments measuring 0.3 to 0.6 cm, all specimens are submitted entirely in (B1). C. The specimen, labeled and designated "Lomas, L, " and designated on the PATIENT NAME: LIA LOMAS PATHOLOGY DATE OF : 59 REPORT #: [id number] PHYSICIAN: ZACHERY TOVAR PCP: JIMMY BARRY MD REPORT IS CONFIDENTIAL AND NOT TO BE RELEASED WITHOUT AUTHORIZATION [facility] [address] [place], [place] [address] Signed requisition "colon, hepatic flexure polypectomy," is received in formalin and consists of two lyman soft tissue fragments measuring 0.3 cm, both specimens are submitted entirely in (C1). D. The specimen, labeled and designated "Lomas, L, " and designated on the requisition "colon, sigmoid polypectomy," is received in formalin and consists of one lyman-brown soft tissue fragment measuring 1.0 x 0.4 x 0.3 cm, the specimen is submitted entirely in (D1). MMA (under the direct supervision of a pathologist) The Gross Description was prepared using a voice recognition system. The report was reviewed for accuracy; however, sound-alike word errors, addition and/or deletions may occur. If there is any question about this report, please contact Client Services. ADDITIONAL NOTES: Immunohistochemical and/or in situ hybridization studies if performed in this case included appropriate positive controls that reacted as expected. This test was developed and its performance characteristics determined by [facility]. It has not been cleared or approved by the U.S. Food and Drug Administration. The FDA has determined that such clearance or approval is not necessary. This test is used for clinical purposes. It should not be regarded as investigational or for research. [facility] is certified under the Clinical Laboratory Improvement Amendments of 1988 (CLIA) as qualified to perform high complexity clinical laboratory testing. PERFORMING LABORATORY: Technical component was performed by [facility], [address] [place] [id number] (CLIA# [id number]). Professional interpretation was performed by [facility], [address] [place], [place] [address], [place] [address] (CLIA#: [id number]). Diagnostician: Chase Garcia MD Pathologist Electronically Signed 08/19/2023 Copies: ~ PATIENT NAME: LIA LOMAS PATHOLOGY DATE OF : 59 REPORT #: [id number] PHYSICIAN: [facility] PCP: JIMMY BARRY MD REPORT IS CONFIDENTIAL AND NOT TO BE RELEASED WITHOUT AUTHORIZATION
== END 2023-08-13 13:55 | disposition home or self-care (01) ==
LOC: OPS 11:53 → DS 11:53 → OPS 13:00
PROVIDERS: ATTEND Surgery
PROC: 0DBL8ZX Excision of Transverse Colon, Via Natural or Artificial Opening Endoscopic, Diagnostic (ICD-10-PCS; 2023-08-13)
PROC: 0DBN8ZX Excision of Sigmoid Colon, Via Natural or Artificial Opening Endoscopic, Diagnostic (ICD-10-PCS; 2023-08-13)
PROC: 0DBK8ZX Excision of Ascending Colon, Via Natural or Artificial Opening Endoscopic, Diagnostic (ICD-10-PCS; principal; 2023-08-13 13:00)
DX: Z12.11 Encounter for screening for malignant neoplasm of colon (principal); D12.2 Benign neoplasm of ascending colon; D12.3 Benign neoplasm of transverse colon; K63.5 Polyp of colon; K57.30 Diverticulosis of large intestine without perforation or abscess without bleeding; G47.30 Sleep apnea, unspecified; J44.9 Chronic obstructive pulmonary disease, unspecified; Z79.899 Other long term (current) drug therapy
CPT/HCPCS: 88305; 99153; G0500; J0690; J2250; J2405; J3010; J7121